=== PATIENT | female | born 1960 | race African-American/Black ===

== ENCOUNTER → 2017-02-07 | Day surgery (SDC) | payer OTHER, MEDICARE ==
[~2017-02-07] MED LIST: AMBIEN10 MG PO; ASPIRIN81 MG PO; BENTYL10 MG PO; CLONAZEPAM0.5 M1 PO; FENTANYL CITRATE/PF 100MCG/2 ML INJ ONE; GABAPENTIN400 MG PO; HYDROCHLOROTHIA25 MG PO; LANTUS100 UNITS/ INJ; LEXAPRO10 MG PO; LIDOCAINE HCL 2% LOCAL INJ 5 ML SDV VIAL INJ ONE; LISINOPRIL10 MG PO; LOSARTAN POTASS25 MG PO; LYRICA25 MG PO; METFORMIN HCL1000 M1 PO; METOCLOPRAMIDE HCL 10 MG/2ML VIAL ONE; METOPROLOL SUCC25 MG PO; MIDAZOLAM HCL 2 MG/2 ML VIAL ONE; NORCO 10-325 T1 EACH PO; NORCO 7.5-3251 EACH PO; NORVASC10 MG PO; PANTOPRAZOLE 40 MG 10ML VIAL ONE; PANTOPRAZOLE SO40 MG PO; POTASSIUM CHLO20 ME1 PO; PROPOFOL IV EMULSION 10 MG/ML 50 ML VIAL ONE; SIMVASTATIN10 MG PO; TRESIBA SC; ZOFRAN ODT4 MG PO; [UNRECOGNIZED DRUG - OTHER] PO
--- NOTE | 2017-02-07 19:33 | Operative Report ---
DATE OF PROCEDURE: February 07, 2017 REFERRING PHYSICIAN: Dr. William Isidro. PROCEDURE PERFORMED: Esophagogastroduodenoscopy with esophageal dilatation and biopsies. INDICATIONS FOR ESOPHAGOGASTRODUODENOSCOPY: Hematemesis, dysphagia to solids. MEDICATION: Patient was done under MAC. Please see anesthesiologist's note. PROCEDURE: With patient in the left lateral decubitus position, flexible fiberoptic Olympus gastroscope was introduced into the esophagus under direct visualization without any difficulty. There was some patchy erythema noted in distal esophagus. A mild stricture was noted at the GE junction that was dilated to size 52-Turkmen Welsh. The scope was then advanced with ease into the stomach. Mucosa overlying the antrum revealed some patchy intense erythema and moderate edema and biopsies were obtained and sent to stain for H. pylori. The previously described gastric ulcer appeared to be almost healed at the distal body posterior wall. There was a peripyloric nodule that was biopsied. The pylorus was then intubated with ease and the scope was advanced all the way to the 2nd portion of the duodenum. The scope was then withdrawn slowly and mucosa overlying the proximal 2nd portion grossly appeared to be within normal limits. Biopsies were obtained and sent to rule out sprue. The mucosa overlying the duodenal bulb appeared to be within normal limits. The scope was then withdrawn back into the stomach and retroflexed, and the mucosa overlying the fundus and cardia appeared to be within normal limits. The scope was then straightened out. The stomach was decompressed. Scope was subsequently withdrawn. Patient tolerated the procedure well. IMPRESSION: 1. Distal esophagitis. 2. Mild stricture at gastroesophageal junction dilated to a size 52-Turkmen Welsh. 3. Gastritis biopsied. Biopsy sent to stain for H. pylori. 4. Peripyloric nodule, biopsied. 5. Previously described gastric ulcer distal body posterior wall appears to be almost healed. 6. Rule out sprue. PLAN: Follow up histology. Increase Protonix to 40 mg 1 p.o. a.c. b.i.d. Job#: [id number] cc:WILLIAM ISIDRO MD
== END | disposition home or self-care (01) ==
LOC: OR 11:12
PROVIDERS: ATTEND Internal Medicine Gastroenterology
DX: K92.0 Hematemesis (principal); K29.70 Gastritis, unspecified, without bleeding; K22.2 Esophageal obstruction; K20.9 Esophagitis, unspecified; K31.89 Other diseases of stomach and duodenum; K21.9 Gastro-esophageal reflux disease without esophagitis; K58.9 Irritable bowel syndrome, unspecified; G62.9 Polyneuropathy, unspecified; G47.33 Obstructive sleep apnea (adult) (pediatric); E11.9 Type 2 diabetes mellitus without complications; I10 Essential (primary) hypertension; M79.7 Fibromyalgia; Z68.35 Body mass index [BMI] 35.0-35.9, adult
CPT/HCPCS: 36415; 43239; 43450; 82948; J2001; J2250; J2765

== ENCOUNTER 2017-08-26 20:35 | Emergency (ER) | payer OTHER ==
[~2017-08-26] VITALS: Ht 162.6 cm; Wt 97.5 kg
[~2017-08-26 20:35] MED LIST changes: -FENTANYL CITRATE/PF 100MCG/2 ML INJ ONE; -LIDOCAINE HCL 2% LOCAL INJ 5 ML SDV VIAL INJ ONE; -METOCLOPRAMIDE HCL 10 MG/2ML VIAL ONE; -MIDAZOLAM HCL 2 MG/2 ML VIAL ONE; -PANTOPRAZOLE 40 MG 10ML VIAL ONE; -PROPOFOL IV EMULSION 10 MG/ML 50 ML VIAL ONE
[2017-08-26 21:35] LABS: BASOPHILS # (AUTO) 0.1 (0.0-0.1); BASOPHILS % 0.9 % (0.0-1.0); EOSINOPHILS # (AUTO) 0.3 (0.0-0.4); EOSINOPHILS % 2.4 % (0.0-6.0); HEMATOCRIT 39.2 % (34.2-44.1); HEMOGLOBIN 13.3 g/dL (12.0-16.0); LYMPHOCYTES # (AUTO) 3.3 (1.0-3.2); LYMPHOCYTES % 27.3 % (18.0-39.1); MEAN CORPUSCULAR HGB CONC 33.9 g/dL (31-35); MEAN CORPUSCULAR VOLUME 88.5 fL (81-99); MONOCYTES # (AUTO) 0.7 (0.2-0.8); MONOCYTES % 6.1 % (4.4-11.3); NEUTROPHILS # (AUTO) 7.6 (2.1-6.9); PLATELET COUNT 344 x10e3/uL (140-360); RED BLOOD COUNT 4.43 x10e6/uL (3.6-5.1); RED CELL DISTRIBUTION WIDTH 13.2 % (11.7-14.4)
[2017-08-26 21:41] LABS: BILIRUBIN,URINE NEGATIVE (NEGATIVE); CLARITY,URINE CLEAR (CLEAR); COLOR,URINE YELLOW (YELLOW); KETONES,URINE NEGATIVE (NEGATIVE); LEUKOCYTE ESTERASE ,URINE NEGATIVE (NEGATIVE); NITRITE,URINE POSITIVE (NEGATIVE); PROTEIN,URINE DIPSTICK NEGATIVE (NEGATIVE); URINE UROBILINOGEN 0.2 mg/dL (0.2 - 1)
[2017-08-26 21:52] LABS: BACTERIA,URINE MANY /HPF; EPITHELIAL CELLS,URINE FEW /LPF; MUCUS,URINE FEW (RARE)
[2017-08-26] MEDS ORDERED: ONDANSETRON HCL INJ 2 MG/ML VIAL IV STA (21:52)
[2017-08-26] MEDS ORDERED: MORPHINE SULFATE 2 MG/ML SYR IV STA (21:52)
[2017-08-26 21:53] LABS: ALANINE AMINOTRANSFERASE 24 IU/L (0-55); ALBUMIN 3.7 g/dL (3.5-5.0); ALKALINE PHOSPHATASE 87 IU/L (40-150); AMYLASE 93 U/L (25-125); ANION GAP 13.7 mmol/L (8-16); BLOOD UREA NITROGEN 14 mg/dL (7-26); BUN/CREATININE RATIO 16 (6-25); CALCIUM 9.6 mg/dL (8.4-10.2); CARBON DIOXIDE 26 mmol/L (22-29); CHLORIDE 105 mmol/L (98-107); CREATININE, SERUM 0.85 mg/dL (0.57-1.11); EST GLOMERULAR FILTRATION RATE > 60 ML/MIN (60-); GLUCOSE 176 mg/dL (74-118); LIPASE 165 U/L (8-78); POTASSIUM 3.7 mmol/L (3.5-5.1); SODIUM 141 mmol/L (136-145)
--- NOTE | 2017-08-26 23:46 | Diagnostic Imaging Report ---
EXAM: CT Abdomen and Pelvis WITHOUT contrast INDICATION: Renal stone. COMPARISON: None. TECHNIQUE: Abdomen and pelvis were scanned utilizing a multidetector helical scanner from the lung base to the pubic symphysis without administration of IV contrast. Absence of intravenous contrast decreases sensitivity for detection of focal lesions and vascular pathology. Coronal and sagittal reformations were obtained. Stone protocol is performed. IV CONTRAST: None. ORAL CONTRAST: Water RADIATION DOSE: Total DLP: 761.28 mGy*cm Estimated effective dose: (DLP x 0.015 x size factor) mSv COMPLICATIONS: None FINDINGS: LINES and TUBES: None. LOWER THORAX: Unremarkable HEPATOBILIARY: No focal hepatic lesions. No biliary ductal dilation. GALLBLADDER: There are cholecystectomy clips. SPLEEN: No splenomegaly. PANCREAS: No focal masses or ductal dilatation. ADRENALS: No adrenal nodules KIDNEYS/URETERS: No hydronephrosis. No cystic or solid mass lesions. No stones. GI TRACT: No abnormal distention, wall thickening, or evidence of bowel obstruction. Appendix is normal. PELVIC ORGANS/BLADDER: There are postop changes of hysterectomy and bilateral oophorectomies. LYMPH NODES: No lymphadenopathy. VESSELS: There is mild atherosclerotic disease in the aorta and major arterial branches. PERITONEUM / RETROPERITONEUM: No free air or fluid. BONES: Degenerative changes of the left SI joint. SOFT TISSUES: Calcified injection granuloma in the right superior outer buttock. IMPRESSION: 1. No evidence of nephrolithiasis or hydronephrosis. Signed by: Dr. Jose Carlos Carbajal M.D. on 08/26/2017 11:42 PM
== END 2017-08-27 00:22 | disposition home or self-care (01) ==
LOC: ER 20:35
DX: R10.9 Unspecified abdominal pain (principal); R11.0 Nausea; N30.91 Cystitis, unspecified with hematuria; I10 Essential (primary) hypertension; E11.9 Type 2 diabetes mellitus without complications; N18.9 Chronic kidney disease, unspecified; M79.7 Fibromyalgia
CPT/HCPCS: 36415; 74176; 80053; 81001; 82150; 83690; 85025; 93005; 99284; J2270; J2405

== ENCOUNTER → 2017-09-22 | Outpatient (CLI) | payer OTHER ==
--- NOTE | 2017-09-22 18:48 | Diagnostic Imaging Report ---
EXAM: CT Abdomen and Pelvis WITHOUT contrast INDICATION: Hematuria COMPARISON: 08/26/2017 CT TECHNIQUE: Abdomen and Pelvis was scanned utilizing a multidetector helical scanner without the use of IV contrast. Coronal and sagittal reformations were obtained. IV CONTRAST: None COMPLICATIONS: None RADIATION DOSE: Total DLP: 729 mGy*cm Estimated effective dose: (DLP x 0.015 x size factor) mSv CTDIvol has been reviewed. It is below the limits set by the Radiation Protocol Committee (RPC). FINDINGS: Abdomen: Lung Bases: No acute findings. Solid Organs: Cholecystectomy clips. No hydronephrosis, renal, or ureteral calculi. Vascular calcification adjacent to ureter stable. Otherwise, solid organs unremarkable. Upper GI Tract: No small bowel obstructive changes. Vascularity: Mild aortic vascular calcifications. No aneurysm. Lymph Nodes: No suspicious adenopathy. Other: No free fluid or free air. Tiny fat-containing umbilical hernia. Pelvis: Bladder: Unremarkable. Numerous pelvic phleboliths posterior to urinary bladder stable. Other: Uterus surgically absent. Colon: No acute colonic findings. Bones: No acute findings. IMPRESSION: 1. No acute findings. Signed by: Dr. Charan Eisenberg MD on 09/22/2017 6:45 PM
== END ==
LOC: CT 17:57
PROVIDERS: ATTEND Internal Medicine
DX: R31.9 Hematuria, unspecified (principal); K42.9 Umbilical hernia without obstruction or gangrene; Z87.442 Personal history of urinary calculi
CPT/HCPCS: 74176

== ENCOUNTER 2018-03-30 16:06 | Emergency (ER) | payer OTHER ==
[~2018-03-30] VITALS: Ht 162.6 cm; Wt 97.5 kg
--- OUTSIDE RECORDS SUMMARY | 2018-03-30 16:11 | XMS REPORT ---
Author Author [facility] Address Unknown Phone Unavailable Care Team Providers Care Cook Helper Dessert Name Role Phone LESLIE ISIDRO Unavailable Unavailable Juany ROUSE Unavailable Unavailable Payers Payer Name Policy Type Policy Number Effective Date Expiration Date Problems This patient has no known problems. Allergies, Adverse Reactions, Alerts Allergy Name Allergy Type Status Severity Reaction(s) Onset Date Inactive Date Treating Clinician Comments Shellfish DA Active SV 2014-10-17 00:00:00 iodine DA Active SV 2014-10-17 00:00:00 Medications This patient has no known medications. Results Test Description Test Time Test Comments Text Results Atomic Results Result Comments MRI SPINE LUMBAR WO 2017-10-21 08:20:00 [place] [address] Patient Name: STEPHEN MUKHERJEE MR #: [id number] : 1960 Age/Sex: 57/F Req #: [id number] Adm Physician: Ordered by: LESLIE ISIDRO MD Report #: [id number] Location: MRI Room/Bed: Procedure: [id number] MRI/MRI SPINE LUMBAR WO Exam Date: Exam Time: REPORT STATUS: Signed Exams: Thoracic and lumbar spine MRIs without IV contrast History: Back pain, radiculopathy symptoms Comparison studies: None Technique: Thoracic spine: Sagittal T1, T2, STIR, axial T1 and T2, coronal T2. Lumbar spine: Sagittal T1, T2, STIR, axial T2 and spin density oblique, coronal T2. IV contrast: None. Findings: Number of lumbar vertebral bodies:5. Alignment: Normal thoracic kyphosis. Straight lumbar curvature. No significant scoliosis. Minimal thoracolumbar curvature convex to the left. Lower thoracic cord: Normal in signal and morphology. The tip of the conus is at L1. Soft tissues: No T2 hyperintense inflammatory changes. Paraspinal muscles: Well preserved. Vertebrae: Normal in height and signal intensity. No compression fractures or infection. Small T1 hyperintense L3 and L4 vertebral body hemangiomas. Degenerative changes: Incompletely imaged cervical spine: Moderately degenerated C5-C6 disc at least mild canal stenosis due to a disc osteophyte complex. Thoracic spine: Mild multilevel disc degeneration, greatest from T2 to T7 with loss of T2/STIR disc signal. Small left central disc protrusions at T5-T6 and at T6-T7. Patent canal and foramina . Lumbar spine: L1-L2: No abnormalities. L2-L3: Mildly degenerated disc. Asymmetric left disc bulge with mild left foraminal stenosis. Patent canal and right foramen. L3-L4: Asymmetric left disc bulge with left foraminal annular fissure and mild facet arthrosis with mild left foraminal stenosis. No significant canal or right foraminal stenosis. L4-L5: Mildly degenerated disc. Symmetric disc bulge with mild bilateral foraminal stenosis. No significant canal stenosis. 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 There may be mild mass effect on the left S1 nerve root at the left subarticular zone at the disc level (series 13, image 36 and series 15, image 23). Patent canal and foramina. IMPRESSION: Thoracic spine: 1. Mild multilevel disc degeneration. 2. Patent thoracic canal and foramina. Lumbar spine: 1. Mild multilevel lumbar disc degeneration with annular fissure at L3-L4. 2. Mild multilevel degenerative foraminal stenosis from L2 to L5. 3. Incidental conjoined left L5-S1 nerve root with potential mass effect on the left subarticular S1 nerve root, significance of which could be correlated for left S1 radiculopathy symptoms. Signed by: Dr. Rancho Mayberry M.D. on 10/21/2017 8:53 AM Dictated By: RANCHO MAYBERRY MD 2 Transcribed By: SAEID on 10/21/17852 COPY TO: LESLIE ISIDRO MD MRI SPINE THORACIC WO 2017-10-21 08:20:00 [place] [address] Patient Name: STEPHEN MUKHERJEE MR #: [id number] : 1960 Age/Sex: 57/F Req #: [id number] Adm Physician: Ordered by: LESLIE ISIDRO MD Report #: [id number] Location: MRI Room/Bed: Procedure: [id number] MRI/MRI SPINE THORACIC WO Exam Date: Exam Time: REPORT STATUS: Signed Exams: Thoracic and lumbar spine MRIs without IV contrast History: Back pain, radiculopathy symptoms Comparison studies: None Technique: Thoracic spine: Sagittal T1, T2, STIR, axial T1 and T2, coronal T2. Lumbar spine: Sagittal T1, T2, STIR, axial T2 and spin density oblique, coronal T2. IV contrast: None. Findings: Number of lumbar vertebral bodies:5. Alignment: Normal thoracic kyphosis. Straight lumbar curvature. No significant scoliosis. Minimal thoracolumbar curvature convex to the left. Lower thoracic cord: Normal in signal and morphology. The tip of the conus is at L1. Soft tissues: No T2 hyperintense inflammatory changes. Paraspinal muscles: Well preserved. Vertebrae: Normal in height and signal intensity. No compression fractures or infection. Small T1 hyperintense L3 and L4 vertebral body hemangiomas. Degenerative changes: Incompletely imaged cervical spine: Moderately degenerated C5-C6 disc at least mild canal stenosis due to a disc osteophyte complex. Thoracic spine: Mild multilevel disc degeneration, greatest from T2 to T7 with loss of T2/STIR disc signal. Small left central disc protrusions at T5-T6 and at T6-T7. Patent canal and foramina . Lumbar spine: L1-L2: No abnormalities. L2-L3: Mildly degenerated disc. Asymmetric left disc bulge with mild left foraminal stenosis. Patent canal and right foramen. L3-L4: Asymmetric left disc bulge with left foraminal annular fissure and mild facet arthrosis with mild left foraminal stenosis. No significant canal or right foraminal stenosis. L4-L5: Mildly degenerated disc. Symmetric disc bulge with mild bilateral foraminal stenosis. No significant canal stenosis. 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 There may be mild mass effect on the left S1 nerve root at the left subarticular zone at the disc level (series 13, image 36 and series 15, image 23). Patent canal and foramina. IMPRESSION: Thoracic spine: 1. Mild multilevel disc degeneration. 2. Patent thoracic canal and foramina. Lumbar spine: 1. Mild multilevel lumbar disc degeneration with annular fissure at L3-L4. 2. Mild multilevel degenerative foraminal stenosis from L2 to L5. 3. Incidental conjoined left L5-S1 nerve root with potential mass effect on the left subarticular S1 nerve root, significance of which could be correlated for left S1 radiculopathy symptoms. Signed by: Dr. Rancho Mayberry M.D. on 10/21/2017 8:53 AM Dictated By: RANCHO MAYBERRY MD 2 Transcribed By: SAEID on 10/21/17852 COPY TO: LESLIE ISIDRO MD CT ABDOMEN/PELVIS WO 2017-09-22 18:42:00 [place] [address] Patient Name: STEPHEN MUKHERJEE MR #: [id number] : 1960 Age/Sex: 57/F Req #: [id number] Adm Physician: Ordered by: LESLIE ISIDRO MD Report #: [id number] Location: CT Room/Bed: Procedure: CT/CT ABDOMEN/PELVIS WO Exam Date: 09/22/17 Exam Time: 1814 REPORT STATUS: Signed EXAM: CT Abdomen and Pelvis WITHOUT contrast INDICATION: Hematuria COMPARISON: 08/26/2017 CT TECHNIQUE: Abdomen and Pelvis was scanned utilizing a multidetector helical scanner without the use of IV contrast. Coronal and sagittal reformations were obtained. IV CONTRAST: None COMPLICATIONS: None RADIATION DOSE: Total DLP: 729 mGy*cm Estimated effective dose: (DLP x 0.015 x size factor) mSv CTDIvol has been reviewed. It is below the limits set by the Radiation Protocol Committee (RPC). FINDINGS: Abdomen: Lung Bases: No acute findings. Solid Organs: Cholecystectomy clips. No hydronephrosis, renal, or ureteral calculi. Vascular calcification adjacent to ureter stable. Otherwise, solid organs unremarkable. Upper GI Tract: No small bowel obstructive changes. Vascularity: Mild aortic vascular calcifications. No aneurysm. Lymph Nodes: No suspicious adenopathy. Other: No free fluid or free air. Tiny fat-containing umbilical hernia. Pelvis: Bladder: Unremarkable. Numerous pelvic phleboliths posterior to urinary bladder stable. Other: Uterus surgically absent. Colon: No acute colonic findings. Bones: No acute findings. IMPRESSION: 1. No acute findings. Signed by: Dr. Gonzalez Eisenberg MD on 09/22/2017 6:45 PM Dictated By: GONZALEZ EISENBERG MD 44 Transcribed By: SAEID on 09/22/171844 COPY TO: LESLIE ISIDRO MD CT ABDOMEN/PELVIS WO 2017-08-26 23:40:00 [place] [id number] [place] [address] Patient Name: STEPHEN MUKHERJEE MR #: [id number] : 1960 Age/Sex: 57/F Req #: [id number] Adm Physician: Ordered by: JONES ROUSE MD Report #: [id number] Location: ER Room/Bed: Procedure: [id number] CT/CT ABDOMEN/PELVIS WO Exam Date: 08/26/17 Exam Time: 2109 REPORT STATUS: Signed EXAM: CT Abdomen and Pelvis WITHOUT contrast INDICATION: Renal stone. COMPARISON: None. TECHNIQUE: Abdomen and pelvis were scanned utilizing a multidetector helical scanner from the lung base to the pubic symphysis without administration of IV contrast. Absence of intravenous contrast decreases sensitivity for detection of focal lesions and vascular pathology. Coronal and sagittal reformations were obtained. Stone protocol is performed. IV CONTRAST: None. ORAL CONTRAST: Water RADIATION DOSE: Total DLP: 761.28 mGy*cm Estimated effective dose: (DLP x 0.015 x size factor) mSv COMPLICATIONS: None FINDINGS: LINES and TUBES: None. LOWER THORAX: Unremarkable HEPATOBILIARY: No focal hepatic lesions. No biliary ductal dilation. GALLBLADDER: There are cholecystectomy clips. SPLEEN: No splenomegaly. PANCREAS: No focal masses or ductal dilatation. ADRENALS: No adrenal nodules KIDNEYS/URETERS: No hydronephrosis. No cystic or solid mass lesions. No stones. GI TRACT: No abnormal distention, wall thickening, or evidence of bowel obstruction. Appendix is normal. PELVIC ORGANS/BLADDER: There are postop changes of hysterectomy and bilateral oophorectomies. LYMPH NODES: No lymphadenopathy. VESSELS: There is mild atherosclerotic disease in the aorta and major arterial branches. PERITONEUM / RETROPERITONEUM: No free air or fluid. BONES: Degenerative changes of the left SI joint. SOFT TISSUES: Calcified injection granuloma in the right superior outer buttock. IMPRESSION: 1. No evidence of nephrolithiasis or hydronephrosis. Signed by: Dr. Jose Carlos Carbajal M.D. on 08/26/2017 11:42 PM Dictated By: JOSE CARLOS NOVOA MD 41 Transcribed By: SAEID on 08/26/172341 COPY TO: JONES ROUSE MD CHEST 2 VIEWS [place] [address] Patient Name: STEPHEN MUKHERJEE MR #: [id number] : 1960 Age/Sex: 56/F Req #: [id number] Adm Physician: Ordered by: LESLIE ISIDRO MD Report #: [id number] Location: [facility] Room/Bed: Procedure: [id number] DX/CHEST 2 VIEWS Exam Date: 11/07/16 Exam Time: 1215 REPORT STATUS: Signed PROCEDURE: CHEST 2 VIEWS TECHNIQUE: PA and lateral chest INDICATION: Preoperative evaluation for left knee surgery COMPARISON: [facility], [place], CHEST 2 VIEWS - [place], 05/09/2016, 13:09. FINDINGS: The lungs are clear and symmetrically inflated. No pleural effusions. Normal heart size, mediastinal contour and central vasculature. Intact skeleton. Cholecystectomy clips. CONCLUSION: Normal chest. Dictated by: Andrew Reynolds M.D. on 11/07/2016 at 14:18 Electronically approved by: Andrew Reynolds M.D. on 11/07/2016 at 14:18 Dictated By: ANDREW REYNOLDS MD 1418 Transcribed By: CORTNEY on 11/07/16 1418 COPY TO: LESLIE ISIDRO MD
--- OUTSIDE RECORDS SUMMARY | 2018-03-30 16:11 | XMS REPORT | Continuity of Care Document ---
Author Author [facility] Interface Address Unknown Phone Unavailable Problems Problem Status Onset Date Classification Date Reported Comments Source Pain in left knee 03/25/2017 06/25/2017 [facility] [place] REPLACEMENT OF TOTAL KNEE JOINT Active 11/26/2016 [facility] [place] TKA Active 11/26/2016 [facility] ACS Active 05/12/2016 [facility] CHEST PAIN Active 05/12/2016 [facility] PAIN - CRONIC Active 07/10/2015 [facility] 789.07 Active 06/02/2014 [facility] Obesity Active Problem 08/10/2016 Sebas Martinez Exertional dyspnea Active Problem 08/10/2016 Sebas Martinez Former smoker Active Problem 08/10/2016 Sebas Martinez Palpitations Active Diagnosis 08/10/2016 Sebas Martinez Type 2 diabetes mellitus with complication Active Problem 08/10/2016 Sebas Martinez Diverticulitis Active Problem 08/10/2016 Sebas Martinez Encounter for pre-operative cardiovascular clearance Active Problem 08/10/2016 Sebas Martinez Coronary atherosclerosis of [place] coronary artery Active Problem 08/10/2016 Sebas Martinez Hypertension Active Problem 08/10/2016 Sebas Martinez Dizziness Active Problem 08/10/2016 Sebas Martinez Irritable bowel disease [facility] (<span ID="[id number]">Confirmed</span>) Active Problem 06/25/2017 [facility] Fibromyalgia Active Problem 06/25/2017 [facility] HTN (<span ID="[id number]">Confirmed</span>) Active Problem 06/25/2017 [facility] Mitral valve prolapse Resolved Problem 06/25/2017 [facility] Stiffness of left knee, not elsewhere classified 06/25/2017 [facility] Muscle weakness 06/25/2017 [facility] Presence of left artificial knee joint 06/25/2017 [facility] ACUTE ISCHEMIC HEART DISEASE, UNSPECIFIE Active [facility] Medications Medication Details Route Status Patient Instructions Ordering Provider Order Date Source zolpidem 5 mg, 1 tab, Route: PO, Drug form: TAB, Bedtime, Start date: 05/13/16 21:00:00 CDT, Duration: 30 day, Stop date: 06/11/16 21:00:00 CDTNotes: (Same As: Ambien) Inactive 05/14/[address] [facility] Levemir FlexPen 40 unit, 0.4 mL, Route: SUB-Q, Drug form: INJ, Bedtime, Start date: 05/13/16 21:00:00 CDT, Duration: 30 day, Stop date: 06/11/16 21:00:00 CDTNotes: Same as Levemir Do not hold insulin without contact ing prescriber WASTE: F/P - Black; E - Municipal Trash Bin "single patient use only" Inactive 05/14/[address] [facility] Simvastatin 10 mg, 1 tab, Route: PO, Drug form: TAB, Bedtime, Dosing Weight 99.091, kg, Start date: 05/13/16 21:00:00 CDT, Duration: 30 day, Stop date: 06/11/16 21:00:00 CDTNotes: (Same as: Zocor) Inactive 05/14/[address] [facility] Insulin Glargine 100 UNT/ML Injectable Solution [Lantus] 40 unit, Route: SUB-Q, Drug form: SOLN, Bedtime, Dosing Weight 99.091, kg, Start date: 05/13/16 21:00:00 CDT, Duration: 30 day, Stop date: 06/11/16 21:00:00 CDT No Longer Active 05/14/[address] [facility] gabapentin 600 MG Oral Tablet 600 mg, 2 cap, Route: PO, Drug form: CAP, BID, Dosing Weight 99.091, kg, Start date: 05/13/16 9:00:00 CDT, Duration: 30 day, Stop date: 06/11/16 17:00:00 CDTNotes: (Same as: Neurontin) Inactive 05/13/[address] [facility] Escitalopram 10 mg, 1 tab, Route: PO, Drug form: TAB, Q12H, Dosing Weight 99.091, kg, Start date: 05/13/16 9:00:00 CDT, Duration: 30 day, Stop date: 06/11/16 21:00:00 CDTNotes: (Same as: Lexapro) Inactive 05/13/[address] [facility] Dicyclomine 20 mg, 1 tab, Route: PO, Drug form: TAB, BID, Dosing Weight 99.091, kg, Start date: 05/13/16 9:00:00 CDT, Duration: 30 day, Stop date: 06/11/16 17:00:00 CDTNotes: (Same as: Bentyl) Inactive 05/13/[address] [facility] cyclobenzaprine 10 mg, 1 tab, Route: PO, Drug form: TAB, BID, Dosing Weight 99.091, kg, Start date: 05/13/16 9:00:00 CDT, Duration: 30 day, Stop date: 06/11/16 17:00:00 CDTNotes: (Same As: Flexeril) Inactive 05/13/[address] [facility] Clonazepam 0.5 mg, 1 tab, Route: PO, Drug form: TAB, BID, Dosing Weight 99.091, kg, Start date: 05/13/16 9:00:00 CDT, Duration: 30 day, Stop date: 06/11/16 17:00:00 CDTNotes: (Same As: KlonoPIN) Inactive 05/13/[address] [facility] Caltrate 600+D Soft Chews 1 tab, Route: PO, Drug Form: TAB, Dosing Weight 99.091, kg, BID, Start date: 05/13/16 9:00:00 CDT, Duration: 30 day, Stop date: 06/11/16 17:00:00 CDT No Longer Active 05/13/[address] [facility] Acetaminophen 325 MG / Hydrocodone Bitartrate 10 MG Oral Tablet [Arden 10/325] 1 tab, Route: PO, Drug Form: TAB, Dosing Weight 99.091, kg, BID, Start date: 05/13/16 9:00:00 CDT, Duration: 30 day, Stop date: 06/11/16 17:00:00 CDTNotes: Do not exceed 4gm/day of acetaminophen. (Same as: Arden 325/10) Inactive 05/13/[address] [facility] aspirin 81 mg tablet, enteric coated 81 mg, 1 tab, Route: PO, Drug form: ECTAB, Daily, Dosing Weight 96.818, kg, Start date: 05/13/16 9:00:00 CDT, Duration: 30 day, Stop date: 06/11/16 9:00:00 CDTNotes: Do not crush or chew. (Same As: Ecotrin) Inactive 05/13/[address] [facility] calcium-vitamin D 500 mg-200 intl units oral tablet 1 tab, Route: PO, Drug Form: TAB, BID, Start date: 05/13/16 9:00:00 CDT, Duration: 30 day, Stop date: 06/11/16 17:00:00 CDTNotes: (Same As: Kirk-D, OsCal-D, Oyster Calcium) Inactive 05/13/[address] [facility] pantoprazole 40 mg, 1 tab, Route: PO, Drug form: ECTAB, BID, Dosing Weight 99.091, kg, Start date: 05/13/16 9:00:00 CDT, Duration: 30 day, Stop date: 06/11/16 17:00:00 CDTNotes: Tablet should not be chewed or cru shed. (Same as: Protonix) Inactive 05/13/[address] [facility] metoprolol tartrate 25 mg, 1 tab, Route: PO, Drug form: TAB, BID, Dosing Weight 99.091, kg, Start date: 05/13/16 9:00:00 CDT, Duration: 30 day, Stop date: 06/11/16 17:00:00 CDTNotes: (Same as: Lopressor) Inactive 05/13/[address] [facility] Nitroglycerin 0.4 MG Sublingual Tablet 0.4 mg=1 tab, SL, Q5Min, PRN Chest Pain, not to exceed 3 doses/15 min--if pain persists, seek medical attention, # 100 tab, 0 Refill(s) Active 05/13/[address] [facility] Ondansetron 4 mg, 1 tab, Route: PO, Drug form: TAB, Q6H, Dosing Weight 99.091, kg, PRN Narcotic Reversal, Start date: 05/12/16 23:09:00 CDT, Duration: 30 day, Stop date: 06/11/16 23:08:00 CDTNotes: (Same as: Sierra) No Longer Active 05/13/[address] [facility] metoprolol tartrate 25 mg, PO, BID, 0 Refill(s) Active 05/13/[address] [facility] Calcium 600 +D oral tablet 1 tab, PO, BID, 0 Refill(s) Active 05/13/[address] [facility] cyclobenzaprine 10 mg oral tablet 10 mg=1 tab, PO, BID, 0 Refill(s) Active 05/13/[address] [facility] ondansetron 4 mg oral tablet 4 mg=1 tab, PO, Q6H, PRN Narcotic Reversal, 0 Refill(s) No Longer Active 05/13/[address] [facility] dicyclomine 20 mg oral tablet 20 mg=1 tab, PO, BID, 0 Refill(s) Active 05/13/[address] [facility] Simvastatin 10 mg, PO, Bedtime, 0 Refill(s) Active 05/13/[address] [facility] escitalopram 10 mg oral tablet 10 mg=1 tab, PO, BID, 09:00 and 21:00, 0 Refill(s) Active 05/13/[address] [facility] pantoprazole 40 mg, PO, BID, # 30 tab, 0 Refill(s) Active 05/13/[address] [facility] Acetaminophen 325 MG / Hydrocodone Bitartrate 10 MG Oral Tablet [Arden 10/325] 1 tab, PO, BID, 0 Refill(s) Active 05/13/[address] [facility] zolpidem 10 mg oral tablet 10 mg=1 tab, PO, Bedtime, 0 Refill(s) Active 05/13/[address] [facility] Insulin Glargine 100 UNT/ML Injectable Solution [Lantus] 40 unit, SUB-Q, Bedtime, # 10 mL, 3 Refill(s) Active 05/13/[address] [facility] gabapentin 600 MG Oral Tablet 600 mg=1 tab, PO, BID, 0 Refill(s) Active 05/13/[address] [facility] clonazePAM 0.5 mg oral tablet 0.5 mg=1 tab, PO, BID, 0 Refill(s) Active 05/13/[address] [facility] Insulin, Aspart, Human 10 unit, 0.1 mL, Route: SUB-Q, Drug form: SOLN, TID-Before Meals, Dosing Weight 96.818, kg, PRN Blood Glucose Results, Start date: 05/12/16 22:17:00 CDT, Duration: 30 day, Stop date: 06/11/16 22:16:00 CDTNotes: Roll in palms of hands gently; Do not shake vigorously. (Same as: NovoLOG) "single patient use only" WASTE: F/P - Black; E - Municipal Trash Bin Stable for 28 days at room temperature. Expires in days from Date No Longer Active 05/13/[address] [facility] Dextrose 50% Syringe 12.5 gm, 25 mL, Route: IVP, Drug Form: INJ, Dosing Weight 96.818, kg, PRN, PRN Blood Glucose Results, Start date: 05/12/16 22:17:00 CDT, Duration: 30 day, Stop date: 06/11/16 22:16:00 CDT No Longer Active 05/13/[address] [facility] Glucagon 1 mg, Route: IM, Drug form: PDR/INJ, PRN, Dosing Weight 96.818, kg, PRN Blood Glucose Results, Start date: 05/12/16 22:17:00 CDT, Duration: 30 day, Stop date: 06/11/16 22:16:00 CDT No Longer Active 05/13/[address] [facility] Acetaminophen 650 mg, 2 tab, Route: PO, Drug form: TAB, Q4H, Dosing Weight 96.818, kg, PRN Pain 1-3/Temp > 100.4 F, Priority: STAT, Start date: 05/12/16 22:04:00 CDT, Duration: 30 day, Stop date: 06/11/16 22 :03:00 CDTNotes: Do not exceed 4 gm/day. (Same as: Tylenol) No Longer Active 05/13/[address] [facility] Nitroglycerin 0.4 mg, 1 tab, Route: SL, Drug form: TAB, Q5Min, Dosing Weight 96.818, kg, PRN Chest Pain, Start date: 05/12/16 22:04:00 CDT, Duration: 30 day, Stop date: 06/11/16 22:03:00 CDTNotes: (Same as:Nitroqu ick, Nitrostat) "Do Not Crush" Sublingual tablet No Longer Active 05/13/[address] [facility] potassium chloride 40 mEq, 2 tab, Route: PO, Drug form: ERTAB, ONCE, Dosing Weight 96.818, kg, Priority: STAT, Start date: 05/12/16 21:52:00 CDT, Stop date: 05/12/16 21:52:00 CDTNotes: (Same as: K-Dur 20) "Do Not Crush" With food and full glass of water Inactive 05/13/[address] [facility] Saline Flush 0.9% 10 ml, Route: IVP, Drug Form: INJ, Dosing Weight 96.818, kg, Q12H, Start date: 05/12/16 21:00:00 CDT, Duration: 30 day, Stop date: 06/11/16 9:00:00 CDTNotes: (Same as: BD Posiflush) No Longer Active 05/13/[address] [facility] Aspirin 325 mg, 1 tab, Route: PO, Drug form: TAB, ONCE, Dosing Weight 96.818, kg, Priority: STAT, Start date: 05/12/16 20:33:00 CDT, Stop date: 05/12/16 20:33:00 CDTNotes: Take with food. Inactive 05/13/[address] [facility] Saline Flush 0.9% 10 ml, Route: IVP, Drug Form: INJ, Dosing Weight 96.818, kg, PRN, PRN Line Flush, Start date: 05/12/16 20:31:00 CDT, Duration: 30 day, Stop date: 06/11/16 20:30:00 CDTNotes: (Same as: BD Posiflush) No Longer Active 05/13/[address] [facility] Nitroglycerin 0.4 mg, 1 tab, Route: SL, Drug form: TAB, Q5Min, Dosing Weight 96.818, kg, PRN Chest Pain, Start date: 05/12/16 20:31:00 CDT, Duration: 3 doses or times, Stop date: Limited # of timesNotes: (Same as: Nitroquick, Nitrostat) "Do Not Crush" Sublingual tablet No Longer Active 05/13/[address] [facility] Saline Flush 0.9% 10 mL, Route: IVP, Drug Form: INJ, Dosing Weight 100, kg, PRN, PRN Line Flush, Start date: 05/12/16 18:03:00 CDT, Duration: 30 day, Stop date: 06/11/16 18:02:00 CDTNotes: (Same as: BD Posiflush) Inactive 05/12/[address] [facility] Metoprolol Tartrate 1 tablet Orally Active 25 MG Orally Twice a day Michelle Martinez Allergies, Adverse Reactions, Alerts Substance Category Reaction Severity Reaction type Status Date Reported Comments Source iodine Assertion Drug allergy Active [facility] Immunizations Immunization Date Given Site Status Last Updated Comments Source Results Order Name Results Value Reference Range Date Interpretation Comments Source Brain wo contrast MRI Brain wo contrast MRI Patient Name: STEPHEN MUKHERJEE : 1960; Age: 57 years y/o Female MR: [id number] Study: Brain wo contrast MRI 06/04/2017 11:44 AM CDT Clinical Indication: G43.019 Migraine without aura, intractable, without status migrainosus - G43.019 Migraine without aura, intractable, without status migrainosus; Comparison: None TECHNIQUE: Multiplanar noncontrast MRI of the brain is performed on a 3 Zeinab magnet. Contrast: None. FINDINGS: The brain parenchyma is unremarkable for age. There are a few punctate FLAIR hyperintensities in the frontoparietal subcortical and deep white matter likely representing chronic microangiopathy. There is no evidence of acute intracranial hemorrhage, acute or subacute infarct, mass, focal edema, midline shift or extra-axial fluid collection. The ventricles and basilar cisterns are unremarkable. The craniocervical junction and midline structures are unremarkable. The cerebellar tonsils terminate normally above foramen magnum. The central intracranial flow voids are maintained. The visualized orbits, paranasal sinuses and mastoids are unremarkable. IMPRESSION: No acute intracranial process. 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 06/04/2017 - - Read by: Margo Locke Dictated Date/time: 06/04/17 12:51 Electronically Signed by: Margo Locke 06/04/17 12:53 FINAL REPORT [facility] [place] CARDIAC ENZYMES Total CK 236 unit/L 12 - 191 05/13/[address] [facility] CARDIAC ENZYMES Troponin-I null 0.00 - 0.40 05/13/[address] [facility] CARDIAC ENZYMES CK-MB INDEX 0.9 0.0 - 2.5 05/13/[address] [facility] CARDIAC ENZYMES CK MB 2.2 ng/mL 0.5 - 3.6 05/13/[address] [facility] LIPIDS LDL (Calculated) 65 mg/dL <=99 mg/dL 05/13/[address] [facility] LIPIDS VLDL 24 05/13/[address] [facility] LIPIDS HDL 40 mg/dL >=61 mg/dL 05/13/[address] [facility] LIPIDS Trig 119 mg/dL <=149 mg/dL 05/13/[address] [facility] LIPIDS Chol 129 mg/dL <=199 mg/dL 05/13/[address] [facility] LIPIDS CHD Risk 3.22 3.90 - 5.80 05/13/[address] [facility] SPECIAL CHEMISTRY Hgb A1C 6.9 % <=5.6 % 05/13/[address] [facility] DRUG SCREEN U Cannab Scr Negative *NA* (05/13/16 12:00 AM) Negative 05/13/[address] [facility] DRUG SCREEN U Cocaine Scr Negative *NA* (05/13/16 12:00 AM) Negative 05/13/[address] [facility] DRUG SCREEN U Phencyc Scr Negative *NA* (05/13/16 12:00 AM) Negative 05/13/[address] [facility] DRUG SCREEN U Opiate Scr Positive *ABN* (05/13/16 12:00 AM) Negative 05/13/[address] [facility] DRUG SCREEN U Benzodia Scr Negative *NA* (05/13/16 12:00 AM) Negative 05/13/[address] [facility] DRUG SCREEN U Zonia Scr Negative *NA* (05/13/16 12:00 AM) Negative 05/13/[address] [facility] DRUG SCREEN U Amph Scr Negative *NA* (05/13/16 12:00 AM) Negative 05/13/[address] [facility] DRUG SCREEN UDS Note See Note (05/13/16 12:00 AM) 05/13/2016 [facility] [place] URINE AND STOOL UA Bacteria None Seen (05/13/16 12:00 AM) None Seen 05/13/2016 [place] URINE AND STOOL Micro? Performed (05/13/16 12:00 AM) 05/13/2016 [place] URINE AND STOOL UA WBC 0-2 /HPF None Seen /HPF 05/13/2016 [place] URINE AND STOOL UA Sq Epi Rare /LPF Few /LPF 05/13/2016 [place] URINE AND STOOL UA RBC 0-2 /HPF 0 - 2 05/13/2016 [place] URINE AND STOOL UA Leuk Est Negative (05/13/16 12:00 AM) Negative 05/13/2016 [place] URINE AND STOOL UA Nitrite Negative (05/13/16 12:00 AM) Negative 05/13/2016 [place] URINE AND STOOL UA Urobilinogen 1.0 EU/dL 0.1 - 1.0 05/13/2016 [place] URINE AND STOOL UA Turbidity Clear (05/13/16 12:00 AM) Clear 05/13/2016 [place] URINE AND STOOL UA Color Yellow *NA* (05/13/16 12:00 AM) Yellow 05/13/2016 [place] URINE AND STOOL UA Ketones Negative mg/dL Negative mg/dL 05/13/2016 [place] URINE AND STOOL UA pH 8.0 5.0 - 8.0 05/13/2016 [place] URINE AND STOOL UA Blood Negative (05/13/16 12:00 AM) Negative 05/13/2016 [place] URINE AND STOOL UA Bili Negative *NA* (05/13/16 12:00 AM) Negative 05/13/2016 [place] URINE AND STOOL UA Glucose Negative mg/dL Negative mg/dL 05/13/2016 [place] URINE AND STOOL UA Protein Negative mg/dL Negative mg/dL 05/13/2016 [place] URINE AND STOOL UA Spec Grav 1.010 <=1.030 05/13/[address] [facility] CARDIAC ENZYMES Troponin-I null 0.00 - 0.40 05/13/[address] [facility] CARDIAC ENZYMES Total CK 273 unit/L 12 - 191 05/13/[address] [facility] CARDIAC ENZYMES CK-MB INDEX 1.0 0.0 - 2.5 05/13/[address] [facility] CARDIAC ENZYMES CK MB 2.6 ng/mL 0.5 - 3.6 05/13/[address] [facility] CHEM PANEL Magnesium Lvl 2.1 mg/dL 1.8 - 2.4 05/13/[address] [facility] ELECTROLYTES AGAP 8.3 meq/L 10.0 - 20.0 05/13/[address] [facility] ELECTROLYTES Sodium Lvl 143 meq/L 135 - 145 05/13/[address] [facility] ELECTROLYTES Glucose Lvl 119 mg/dL 70 - 99 05/13/[address] [facility] ELECTROLYTES BUN 18 mg/dL 7 - 22 05/13/[address] [facility] ELECTROLYTES Chloride Lvl 105 meq/L 95 - 109 05/13/[address] [facility] ELECTROLYTES Potassium Lvl 3.3 meq/L 3.5 - 5.1 05/13/[address] [facility] ELECTROLYTES CO2 33 meq/L 24 - 32 05/13/[address] [facility] ELECTROLYTES Calcium Lvl 9.1 mg/dL 8.5 - 10.5 05/13/[address] [facility] ELECTROLYTES eGFR 116 mL/min/1.73m2 05/13/2016 Result Comment: The eGFR is calculated using the CKD-EPI formula. In most young, healthy individuals the eGFR will be >90 mL/min/1.73m2. The eGFR declines with age. An eGFR of 60-89 may be normal in some populations, particularly the elderly, for whom the CKD-EPI formula has not been extensively validated. Use of the eGFR is not recommended in the following populations: Individuals with unstable creatinine concentrations, including patients and those with serious co-morbid conditions. Patients with extremes in muscle mass or diet. The data above are obtained from the National Kidney Disease Education Program (NKDEP) which additionally recommends that when the eGFR is used in patients with extremes of body mass index for purposes of drug dosing, the eGFR should be multiplied by the estimated BMI. [facility] ELECTROLYTES Creatinine Lvl 0.66 mg/dL 0.50 - 1.40 05/13/[address] [facility] HEMATOLOGY D-Dimer 0.70 ug/mL FEU 05/13/[address] [facility] HEMATOLOGY Platelet 271 K/CMM 133 - 450 05/13/[address] [facility] HEMATOLOGY MPV 7.2 fL 7.4 - 10.4 05/13/[address] [facility] HEMATOLOGY MCHC 34.2 g/dL 32.0 - 36.0 05/13/[address] [facility] HEMATOLOGY RDW 13.3 % 11.5 - 14.5 05/13/[address] [facility] HEMATOLOGY WBC X 10x3 10.3 K/CMM 3.7 - 10.4 05/13/[address] [facility] HEMATOLOGY RBC X 10x6 4.19 M/CMM 4.20 - 5.40 05/13/[address] [facility] HEMATOLOGY Hgb 12.9 g/dL 12.0 - 16.0 05/13/2016 [facility] Hct 37.7 % 36.0 - 48.0 05/13/2016 [facility] MCV 90.0 fL 80.0 - 98.0 05/13/2016 [facility] MCH 30.8 pg 27.0 - 31.0 05/13/2016 [facility] Basophils 0.6 % 0.0 - 1.0 05/13/2016 [facility] Lymphocytes # 3.0 K/CMM 1.0 - 5.5 05/13/2016 [facility] Segs-Bands # 6.3 K/CMM 1.5 - 8.1 05/13/2016 [facility] Monocytes # 0.9 K/CMM 0.0 - 0.8 05/13/2016 [facility] Eosinophils # 0.1 K/CMM 0.0 - 0.5 05/13/2016 [facility] Basophils # 0.1 K/CMM 0.0 - 0.2 05/13/2016 [facility] Eosinophils 1.4 % 0.0 - 4.0 05/13/2016 [facility] Segs 60.8 % 45.0 - 75.0 05/13/2016 [facility] Lymphocytes 28.9 % 20.0 - 40.0 05/13/2016 [facility] Monocytes 8.3 % 2.0 - 12.0 05/13/[address] [facility] CARDIAC ENZYMES CK-MB INDEX 1.0 0.0 - 2.5 05/12/[address] [facility] CARDIAC ENZYMES Total CK 299 unit/L 12 - 191 05/12/[address] [facility] CARDIAC ENZYMES Troponin-I null 0.00 - 0.40 05/12/[address] [facility] CARDIAC ENZYMES CK MB 2.9 ng/mL 0.5 - 3.6 05/12/[address] [facility] CHEM PANEL Alk Phos 77 unit/L 39 - 136 05/12/2016 [facility] [place] CHEM PANEL Glucose Lvl 143 mg/dL 70 - 99 05/12/2016 [place] CHEM PANEL BUN 18 mg/dL 7 - 22 05/12/2016 [place] CHEM PANEL Sodium Lvl 143 meq/L 135 - 145 05/12/2016 [place] CHEM PANEL Creatinine Lvl 0.80 mg/dL 0.50 - 1.40 05/12/2016 [place] CHEM PANEL Albumin Lvl 3.8 g/dL 3.5 - 5.0 05/12/2016 [place] CHEM PANEL ALANINE AMINOTRANSFERASE 34 unit/L 0 - 65 05/12/2016 [place] CHEM PANEL eGFR 97 mL/min/1.73m2 05/12/2016 Result Comment: The eGFR is calculated using the CKD-EPI formula. In most young, healthy individuals the eGFR will be >90 mL/min/1.73m2. The eGFR declines with age. An eGFR of 60-89 may be normal in some populations, particularly the elderly, for whom the CKD-EPI formula has not been extensively validated. Use of the eGFR is not recommended in the following populations: Individuals with unstable creatinine concentrations, including patients and those with serious co-morbid conditions. Patients with extremes in muscle mass or diet. The data above are obtained from the National Kidney Disease Education Program (NKDEP) which additionally recommends that when the eGFR is used in patients with extremes of body mass index for purposes of drug dosing, the eGFR should be multiplied by the estimated BMI. [place] CHEM PANEL AGAP 11.3 meq/L 10.0 - 20.0 05/12/2016 [place] CHEM PANEL Globulin 3.9 g/dL 2.7 - 4.2 05/12/2016 [place] CHEM PANEL ASPARTATE TRANSAMINASE 26 unit/L 0 - 37 05/12/2016 [place] CHEM PANEL B/C Ratio 22 6 - 25 05/12/2016 [place] CHEM PANEL A/G Ratio 1.0 0.7 - 1.6 05/12/2016 [place] CHEM PANEL Potassium Lvl 3.3 meq/L 3.5 - 5.1 05/12/2016 [place] CHEM PANEL Chloride Lvl 106 meq/L 95 - 109 05/12/2016 [place] CHEM PANEL CO2 29 meq/L 24 - 32 05/12/2016 [place] CHEM PANEL Bili Total 0.2 mg/dL 0.2 - 1.3 05/12/[address] [facility] CHEM PANEL Total Protein 7.7 g/dL 6.4 - 8.4 05/12/[address] [facility] CHEM PANEL Calcium Lvl 8.9 mg/dL 8.5 - 10.5 05/12/2016 [facility] Lymphocytes # 2.9 K/CMM 1.0 - 5.5 05/12/2016 [facility] Segs-Bands # 6.0 K/CMM 1.5 - 8.1 05/12/[address] [facility] HEMATOLOGY Basophils 0.7 % 0.0 - 1.0 05/12/2016 [facility] Eosinophils 1.6 % 0.0 - 4.0 05/12/2016 [facility] Monocytes 7.2 % 2.0 - 12.0 05/12/2016 [facility] Monocytes # 0.7 K/CMM 0.0 - 0.8 05/12/2016 [facility] Basophils # 0.1 K/CMM 0.0 - 0.2 05/12/2016 [facility] Eosinophils # 0.2 K/CMM 0.0 - 0.5 05/12/2016 [facility] Lymphocytes 29.9 % 20.0 - 40.0 05/12/2016 [facility] Segs 60.6 % 45.0 - 75.0 05/12/2016 [facility] MCV 90.5 fL 80.0 - 98.0 05/12/2016 [facility] Hgb 12.7 g/dL 12.0 - 16.0 05/12/2016 [facility] RBC X 10x6 4.15 M/CMM 4.20 - 5.40 05/12/2016 [facility] WBC X 10x3 9.8 K/CMM 3.7 - 10.4 05/12/2016 [facility] Hct 37.5 % 36.0 - 48.0 05/12/2016 [facility] RDW 13.6 % 11.5 - 14.5 05/12/2016 [facility] MCHC 33.9 g/dL 32.0 - 36.0 05/12/2016 [facility] MCH 30.7 pg 27.0 - 31.0 05/12/2016 [facility] Platelet 269 K/CMM 133 - 450 05/12/2016 [facility] [place] HEMATOLOGY MPV 7.3 fL 7.4 - 10.4 05/12/[address] [facility] Chest 1view DX Chest 1view DX Study: Frontal chest x-ray History: Short of breath Comments: The trachea is midline. The cardiomediastinal silhouette is normal in size. No pneumonia. No pleural effusions or pneumothorax. Impression: No acute cardiopulmonary disease. 05/12/2016 - - Read by: Rabia Royal MD Dictated Date/time: 05/12/16 18:25 Electronically Signed by: Rabia Royal MD 05/12/16 18:25 FINAL REPORT [facility] Lung ventilation/perfusion scan NM Lung ventilation/perfusion scan NM Exam: V/Q scan Clinical Indication: pain Dose: 10.1 mCi xenon-133; 6.1 mCi of technetium 99m MAA Findings: Ventilation scan is unremarkable. Normal washout is seen. Perfusion scan shows homogeneous perfusion bilaterally with no significant matched or mismatched defects. Impression: Low probability. 05/12/2016 - - Read by: Elvin Gates MD Dictated Date/time: 05/13/16 01:32 Electronically Signed by: Elvin Gates MD 05/13/16 01:32 FINAL REPORT [facility] Vital Signs Vital Sign Value Date Comments [facility] Systolic (mm Hg) 112 05/13/[address] [facility] Diastolic (mm Hg) 76 05/13/[address] [facility] Respitory Rate 18 05/13/[address] [facility] Heart Rate 60 05/13/[address] [facility] Temperature Oral (F) 97.5 F 05/13/[address] [facility] Heart Rate 58 05/13/[address] [facility] Temperature Oral (F) 98.0 F 05/13/[address] [facility] Systolic (mm Hg) 122 05/13/[address] [facility] Diastolic (mm Hg) 67 05/13/[address] [facility] Systolic (mm Hg) 116 05/13/[address] [facility] Diastolic (mm Hg) 69 05/13/[address] [facility] Temperature Oral (F) 98.2 F 05/13/[address] [facility] Heart Rate 73 05/13/[address] [facility] Weight 99.091 05/13/[address] [facility] Height 162.56 cm 05/13/[address] [facility] BMI Calculated 37.5 05/13/[address] [facility] Respitory Rate 22 05/13/[address] [facility] Respitory Rate 17 05/13/[address] [facility] Weight 96.818 05/12/[address] [facility] Height 162.56 cm 05/12/[address] [facility] BMI Calculated 36.64 05/12/[address] [facility] Heart Rate 80 07/10/[address] [facility] Respitory Rate 16 07/10/[address] [facility] Systolic (mm Hg) 186 07/10/[address] [facility] Diastolic (mm Hg) 84 07/10/[address] [facility] Temperature Oral (F) 98.7 F 07/10/[address] [facility] Heart Rate 75 07/10/[address] [facility] Systolic (mm Hg) 167 07/10/[address] [facility] Diastolic (mm Hg) 107 07/10/[address] [facility] Respitory Rate 16 07/10/[address] [facility] Weight 100 07/10/[address] [facility] Encounters Location Location Details Encounter Type Encounter Number Reason For Visit Attending Provider ADM Date DC Date Status Source [facility] [id number] Mellisanohelia Watts 07/10/2015 07/10/2015 [facility] Observation [id number] Tano Clarkees 05/12/2016 05/13/2016 [facility] Patients [id number] Luke Pat 12/06/2016 01/05/2017 [facility] [place] [facility] [place] [facility] Patients [id number] Luke Pat 01/15/2017 02/14/2017 [facility] [place] [facility] [place] [facility] Patients [id number] Luke Schachioma 02/18/2017 03/20/2017 [facility] [place] [facility] Outpatient Imaging [place] [facility] [id number] Kiki Kong 06/04/2017 06/05/2017 [facility] [place] Procedures Procedure Code Date Perfomer Comments Source Cholecystectomy [id number] [facility] Hysterectomy [id number] [facility] Cholecystectomy [id number] [facility] [place] Hysterectomy [id number] [facility] [place] Cholecystectomy [id number] [facility] Hysterectomy [id number] [facility]
[2018-03-30] MEDS ORDERED: MORPHINE SULFATE INJ 4 MG/ML INJ 1ML IV STA (16:55)
[2018-03-30] MEDS ORDERED: SODIUM CHLORIDE 0.9% 1000ML 1,000 ML IV STA (16:55)
[2018-03-30] MEDS ORDERED: ONDANSETRON HCL INJ 2MG/ML 2ML 2 MG/ML VIAL IV STA (16:55)
[2018-03-30 17:07] LABS: COLOR,URINE YELLOW (YELLOW); LEUKOCYTE ESTERASE ,URINE NEGATIVE (NEGATIVE); NITRITE,URINE NEGATIVE (NEGATIVE); PROTEIN,URINE DIPSTICK NEGATIVE (NEGATIVE)
[2018-03-30 17:08] LABS: BILIRUBIN,URINE NEGATIVE (NEGATIVE); CLARITY,URINE CLEAR (CLEAR); KETONES,URINE NEGATIVE (NEGATIVE); URINE UROBILINOGEN 0.2 mg/dL (0.2 - 1)
[2018-03-30 17:18] LABS: AMORPHOUS SEDIMENT,URINE MODERATE (FEW); BACTERIA,URINE MODERATE /HPF; EPITHELIAL CELLS,URINE MODERATE /LPF; MUCUS,URINE MANY (RARE); RBC,URINE 0-5 /HPF (0-5); RENAL EPITHELIAL CELLS,URINE FEW
--- NOTE | 2018-03-30 19:59 | Diagnostic Imaging Report ---
EXAM: CT Abdomen and Pelvis WITHOUT contrast INDICATION: Left-sided abdominal pain. ^STONE PROTOCOL COMPARISON: CT abdomen and pelvis 09/22/2017. 08/26/2017. 08/26/2017 TECHNIQUE: Abdomen and pelvis were scanned utilizing a multidetector helical scanner from the lung base to the pubic symphysis without administration of IV contrast. Absence of intravenous contrast decreases sensitivity for detection of focal lesions and vascular pathology. Coronal and sagittal reformations were obtained. Stone protocol is performed. IV CONTRAST: None ORAL CONTRAST: Water COMPLICATIONS: None RADIATION DOSE: Total DLP: 761.73 mGy*cm Estimated effective dose: (DLP x 0.015 x size factor) mSv CTDIvol has been reviewed. It is below the limits set by the Radiation Protocol Committee (RPC). FINDINGS: LINES and TUBES: None. LOWER THORAX: Unremarkable HEPATOBILIARY: No focal hepatic lesions. No biliary ductal dilation. GALLBLADDER: There are cholecystectomy clips. SPLEEN: No splenomegaly. PANCREAS: No focal masses or ductal dilatation. ADRENALS: No adrenal nodules KIDNEYS/URETERS: No hydronephrosis. No cystic or solid mass lesions. No stones. GI TRACT: No abnormal distention, wall thickening, or evidence of bowel obstruction. Appendix is not clearly identified. There is however no fat stranding or adenopathy in the right lower quadrant to suggest appendicitis. PELVIC ORGANS/BLADDER: Uterus is surgically absent. Both ovaries are not clearly identified. Mild pelvic floor prolapse. LYMPH NODES: No lymphadenopathy. VESSELS: There is mild atherosclerotic disease in the aorta and major arterial branches. PERITONEUM / RETROPERITONEUM: No free air or fluid. BONES: Unremarkable. SOFT TISSUES: Unremarkable. IMPRESSION: 1. No renal stones or source of left flank pain identified. 2. Pelvic floor prolapse. Signed by: Dr. Heriberto Alexis M.D. on 03/30/2018 7:55 PM
[2018-03-30] MEDS ORDERED: HYDROCODONE/APAP 10MG-325MG TAB ONE (20:25)
[2018-03-30] MEDS ORDERED: ONDANSETRON HCL 4 MG ORAL DISINTEGRATING TAB PO ONE (20:30)
[2018-03-30] MEDS ORDERED: HYDROCODONE/APAP 10MG-325MG TAB PO ONE (20:30)
[2018-03-30 20:41] LABS: BASOPHILS # (AUTO) 0.1 (0.0-0.1); BASOPHILS % 0.5 % (0.0-1.0); EOSINOPHILS # (AUTO) 0.2 (0.0-0.4); EOSINOPHILS % 1.1 % (0.0-6.0); HEMOGLOBIN 13.8 g/dL (12.0-16.0); LYMPHOCYTES # (AUTO) 4.5 (1.0-3.2); MEAN CORPUSCULAR HEMOGLOBIN 31.1 pg (28-32); MEAN CORPUSCULAR HGB CONC 33.7 g/dL (31-35); MEAN CORPUSCULAR VOLUME 92.3 fL (81-99); MONOCYTES # (AUTO) 0.8 (0.2-0.8); MONOCYTES % 5.6 % (4.4-11.3); NEUTROPHILS # (AUTO) 8.1 (2.1-6.9); NEUTROPHILS % 59.5 % (38.7-80.0); PLATELET COUNT 322 x10e3/uL (140-360); RED BLOOD COUNT 4.44 x10e6/uL (3.6-5.1); RED CELL DISTRIBUTION WIDTH 12.7 % (11.7-14.4)
[2018-03-30 21:03] LABS: ALANINE AMINOTRANSFERASE 29 IU/L (0-55); ALBUMIN 3.8 g/dL (3.5-5.0); ALBUMIN/GLOBULIN RATIO 1.2 (0.8-2.0); ALKALINE PHOSPHATASE 74 IU/L (40-150); AMYLASE 40 U/L (25-125); ANION GAP 15.5 mmol/L (8-16); BLOOD UREA NITROGEN 16 mg/dL (7-26); BUN/CREATININE RATIO 19 (6-25); CALCIUM 9.5 mg/dL (8.4-10.2); CARBON DIOXIDE 25 mmol/L (22-29); CHLORIDE 101 mmol/L (98-107); CREATININE, SERUM 0.84 mg/dL (0.57-1.11); EST GLOMERULAR FILTRATION RATE > 60 ML/MIN (60-); GLUCOSE 112 mg/dL (74-118); LIPASE 13 U/L (8-78); MAGNESIUM 2.1 MG/DL (1.3-2.1); POTASSIUM 3.5 mmol/L (3.5-5.1); SODIUM 138 mmol/L (136-145)
[2018-03-30] MEDS ORDERED: KETOROLAC TROMETHAMINE 60 MG/2 ML VIAL IM ONE (23:30)
[2018-03-30] MEDS ORDERED: ORPHENADRINE CITRATE 30 MG/ML VIAL IM ONE (23:30)
== END 2018-03-30 23:55 | disposition home or self-care (01) ==
LOC: ER 16:06
DX: R10.9 Unspecified abdominal pain (principal); R35.0 Frequency of micturition; I10 Essential (primary) hypertension; E11.9 Type 2 diabetes mellitus without complications; J45.909 Unspecified asthma, uncomplicated; E78.5 Hyperlipidemia, unspecified; M79.7 Fibromyalgia
CPT/HCPCS: 36415; 74176; 80053; 81001; 82150; 83690; 83735; 85025; 99283; J1885; J2360; Q0162

== ENCOUNTER → 2018-04-22 | Outpatient (CLI) | payer OTHER ==
--- NOTE | 2018-04-22 18:09 | Diagnostic Imaging Report ---
TECHNIQUE: Magnetic resonance imaging of the RIGHT SHOULDER was performed WITHOUT injected contrast. HISTORY: Pain, limited motion, bursitis COMPARISON: None available. FINDINGS: MUSCLES AND TENDONS: Rotator Cuff: Tendons: Supraspinatus and Infraspinatus: Low-grade articular sided partial-thickness tearing of the anterior supraspinatus tendon. Adjacent intrasubstance degeneration. Minimal intrasubstance degeneration of the infraspinatus tendon. Teres Minor: Intact Subscapularis: Intact Muscles: No focal muscle atrophy. Biceps Tendon: The long head of the biceps tendon is within the intertubercular groove. GLENOHUMERAL JOINT: Glenoid Labrum: Diffuse complex tearing and mild attenuation, including the biceps labral anchor, most notably the inferior portions of the labrum. Articular Cartilage: High-grade to full-thickness erosions. Joint Fluid: Synovitis and trace effusion. ACROMIOCLAVICULAR JOINT: Moderate hypertrophic degenerative changes of the acromioclavicular joint. Mild synovitis. BONE: The acromion is unremarkable. The bone marrow signal is heterogeneous, compatible with red marrow conversion, no specific evidence of a focal bone marrow replacing abnormality. No acute fracture. SOFT TISSUES: Otherwise, unremarkable. IMPRESSION: 1. Supraspinatus greater than infraspinatus tendinosis with low-grade partial-thickness articular sided tearing of the anterior supraspinatus tendon. 2. Moderate degenerative changes of the acromioclavicular joint and glenohumeral joint, including diffuse degenerative tearing of the labrum. Signed by: Dr. Newton Duarte D.O., M.M.M. on 04/22/2018 6:05 PM
--- NOTE | 2018-04-23 09:34 | Diagnostic Imaging Report ---
MRI SPINE CERVICAL WO HISTORY: Neck and bilateral shoulder pain COMPARISON: MRI of the thoracic spine 10/20/2017 TECHNIQUE: Sagittal T1, sagittal T2, sagittal inversion recovery, axial T2 and axial T1 weighted MR images of the cervical spine were obtained without intravenous contrast. DISCUSSION: Alignment: Straightening of the cervical lordosis. No scoliosis. Vertebrae: No definite evidence for fractures, infection, or neoplasm. Cervicomedullary junction: No abnormalities. Spinal cord: The ventral cord is mildly indented by disc at C5-C6. The cord is otherwise normal in signal and morphology from the foramen magnum through T4-T5. Soft tissues: The adenoid and palatine tonsils are mildly prominent. A few mildly prominent bilateral upper jugular chain lymph nodes are present. There is a 0.8 cm T2 hyperintense nodule in the right thyroid lobe. Mild to moderate multilevel disc degeneration is most prominent at C5-C6. This is superimposed on a congenitally narrow cervical spinal canal. Mild atlantoaxial arthrosis is present as well. C2-C3: Patent canal and foramina. C3-C4: Patent canal and foramina. C4-C5: Mild canal stenosis due to posterior disc osteophyte complex. Mild left foraminal stenosis due to uncovertebral and facet arthrosis. No significant right foraminal stenosis. C5-C6: Moderate canal stenosis due to posterior disc osteophyte complex and ligamentum flavum thickening. Mild bilateral foraminal stenoses due to uncovertebral and facet arthrosis. C6-C7: Patent canal and foramina. C7-T1: Mild bilateral foraminal stenoses due to uncovertebral and facet arthrosis. No significant canal stenosis. IMPRESSION: 1. Mild to moderate multilevel disc degeneration, most prominent at C5-C6, superimposed on a congenitally narrow cervical spinal canal. 2. Moderate C5-C6 and mild C4-C5 congenital/degenerative canal stenoses. The ventral cord is mildly indented by disc at C5-C6. 3. Mild multilevel bilateral degenerative foraminal stenoses as described above. Signed by: Dr. Quintin Will M.D. on 04/23/2018 9:30 AM
== END ==
LOC: MRI 13:51
PROVIDERS: ATTEND Physical Medicine & Rehabilitation Pain Medicine
DX: M47.22 Other spondylosis with radiculopathy, cervical region (principal); M75.51 Bursitis of right shoulder
CPT/HCPCS: 72141

== ENCOUNTER → 2019-03-18 | Outpatient (CLI) | payer OTHER ==
[~2019-03-18] MED LIST changes: +INSULIN SQ; +TRAZODONE HCL50 MG PO
--- NOTE | 2019-03-18 12:46 | Diagnostic Imaging Report ---
History: Cervical spondylosis, neck pain Comparison studies: Cervical spine MRI 04/22/2018 Technique: Sagittal T1, T2 and IR, axial T2 and axial gradient echo Intravenous contrast: None Findings: Alignment: Mild reversal the usual cervical lordosis at C5-C6. Cervicomedullary junction: No abnormalities. Patent foramen magnum. Soft tissues: No T2 hyperintense inflammatory changes. Spinal cord: Normal in size and signal from the foramen magnum through T1. Vertebrae: No fractures, infection or neoplasm. Degenerative changes: The spinal canal is congenitally narrowed. C2-C3: Patent canal and foramina. C3-C4: Mildly degenerated disc. Small central disc protrusion indents the thecal sac and contributes to mild canal stenosis, unchanged. Patent foramina. C4-C5: Mildly degenerated disc. Small left central disc protrusion indents the left ventral spinal cord and contributes to moderate spinal canal stenosis, unchanged. Patent foramina. C5-C6: Moderately degenerated disc with loss of disc height. Disc osteophyte complex and thickened ligamentum flavum contribute to moderate canal stenosis, unchanged. Mild left foraminal stenosis due to uncovertebral arthrosis. No significant right foraminal stenosis. C6-C7: Patent canal and foramina. C7-T1: Mild bilateral foraminal stenosis due to uncovertebral arthrosis. Incidental findings: Unchanged 8 mm T2 hyperintense nodule or cyst in the right thyroid lobe. IMPRESSION: 1. No significant changes from the prior cervical spine MRI of 04/22/2018. 2. Multilevel disc degeneration, worse/moderate at C5-C6. 3. Congenital on acquired degenerative canal stenosis from C3 to C6, worse/moderate at C5-C6 with small disc protrusions at C3-C4 and at C4-C5 and disc osteophyte complex at C5-C6. 4. No cord signal abnormalities. Signed by: Dr. Damian Mayberry M.D. on 03/18/2019 12:44 PM
== END ==
LOC: MRI 08:13
PROVIDERS: ATTEND Physical Medicine & Rehabilitation Pain Medicine
DX: M47.22 Other spondylosis with radiculopathy, cervical region (principal)
CPT/HCPCS: 72141

== ENCOUNTER 2019-03-31 16:20 | Observation (INO) | payer OTHER ==
[~2019-03-31] VITALS: Ht 162.6 cm; Wt 96.8 kg
--- NOTE | 2019-03-31 17:28 | Diagnostic Imaging Report ---
EXAM: CHEST 2 VIEWS DATE: 03/31/2019 4:34 PM INDICATION: Shortness of breath COMPARISON: None available. FINDINGS: The trachea is midline. The lungs are symmetrically expanded without evidence for large focal consolidation, pneumothorax, or significant pleural effusion. The cardiomediastinal silhouette and pulmonary vasculature are within normal limits. No acute osseous abnormality is identified. The surrounding soft tissues are unremarkable. IMPRESSION: No acute cardiopulmonary process identified. Signed by: Dr. Rafiq Croft MD on 03/31/2019 5:25 PM
[2019-03-31 17:43] LABS: BASOPHILS # (AUTO) 0.1 (0.0-0.1); BASOPHILS % 0.8 % (0.0-1.0); EOSINOPHILS # (AUTO) 0.1 (0.0-0.4); EOSINOPHILS % 0.6 % (0.0-6.0); HEMATOCRIT 38.8 % (34.2-44.1); HEMOGLOBIN 13.2 g/dL (12.0-16.0); MEAN CORPUSCULAR HEMOGLOBIN 31.2 pg (28-32); MEAN CORPUSCULAR VOLUME 91.7 fL (81-99); MONOCYTES # (AUTO) 0.9 (0.2-0.8); MONOCYTES % 6.2 % (4.4-11.3); NEUTROPHILS # (AUTO) 9.1 (2.1-6.9); PLATELET COUNT 330 x10e3/uL (140-360); RED BLOOD COUNT 4.23 x10e6/uL (3.6-5.1); RED CELL DISTRIBUTION WIDTH 12.5 % (11.7-14.4)
[2019-03-31 18:01] LABS: ALANINE AMINOTRANSFERASE 18 IU/L (0-55); ALBUMIN 4.1 g/dL (3.5-5.0); ALBUMIN/GLOBULIN RATIO 1.2 (0.8-2.0); ALKALINE PHOSPHATASE 97 IU/L (40-150); ANION GAP 14.7 mmol/L (8-16); BLOOD UREA NITROGEN 8 mg/dL (7-26); BUN/CREATININE RATIO 11 (6-25); CALCIUM 9.8 mg/dL (8.4-10.2); CARBON DIOXIDE 23 mmol/L (22-29); CHLORIDE 107 mmol/L (98-107); CREATINE KINASE 115 IU/L (29-168); CREATININE, SERUM 0.74 mg/dL (0.57-1.11); EST GLOMERULAR FILTRATION RATE > 60 ML/MIN (60-); GLUCOSE 170 mg/dL (74-118); POTASSIUM 3.7 mmol/L (3.5-5.1); SODIUM 141 mmol/L (136-145)
[2019-03-31 18:33] LABS: CLARITY,URINE CLEAR (CLEAR); COLOR,URINE YELLOW (YELLOW)
[2019-03-31 18:34] LABS: BILIRUBIN,URINE NEGATIVE (NEGATIVE); KETONES,URINE NEGATIVE (NEGATIVE); LEUKOCYTE ESTERASE ,URINE NEGATIVE (NEGATIVE); NITRITE,URINE NEGATIVE (NEGATIVE); PROTEIN,URINE DIPSTICK NEGATIVE (NEGATIVE); URINE UROBILINOGEN 0.2 mg/dL (0.2 - 1)
[2019-03-31 18:34] LABS: INR 0.87; PROTHROMBIN TIME 12.3 seconds (11.9-14.5)
[2019-03-31 18:35] LABS: PARTIAL THROMBOPLASTIN TIME 26.2 seconds (23.8-35.5)
[2019-03-31] MEDS ORDERED: ONDANSETRON HCL INJ 2MG/ML 2ML 2 MG/ML VIAL IV STA (18:51)
[2019-03-31] MEDS ORDERED: MORPHINE SULFATE INJ 4 MG/ML INJ 1ML IV STA (18:51)
[2019-03-31] MEDS ORDERED: MORPHINE SULFATE INJ 4 MG/ML INJ 1ML ONE (19:02)
[2019-03-31 19:10] LABS: EPITHELIAL CELLS,URINE RARE /LPF; RBC,URINE 0-5 /HPF (0-5)
[2019-03-31 19:18] LABS: AMPHETAMINES SCREEN,URINE NEGATIVE (NEGATIVE); BENZODIAZEPINES SCREEN,URINE NEGATIVE (NEGATIVE); PHENCYCLIDINE SCREEN,URINE NEGATIVE (NEGATIVE)
[2019-03-31 20:00] VITALS: BP 151/67
[2019-03-31] MEDS ORDERED: ESCITALOPRAM OX20 MG PO (20:45)
[2019-03-31] MEDS ORDERED: NOVOLOG MI100 UNIT/1 SC (20:45)
[2019-03-31] MEDS ORDERED: DICYCLOMINE HCL20 MG PO (20:45)
[2019-03-31] MEDS ORDERED: TRESIBA100 UNIT/1 SC (20:45)
[2019-03-31] MEDS ORDERED: ATORVASTATIN CA20 MG PO (20:53)
[2019-03-31] MEDS ORDERED: OLMESARTAN-HCT1 EACH PO (20:53)
[2019-03-31] MEDS ORDERED: MELOXICAM7.5 MG PO (20:53)
[2019-03-31] MEDS ORDERED: SUCRALFATE1 GM PO (20:53)
[2019-03-31] MEDS ORDERED: GRALISE600 MG PO (20:53)
[2019-03-31] MEDS ORDERED: TIZANIDINE HCL4 MG PO (20:53)
[2019-03-31] MEDS ORDERED: NEPHRO-VITE TABL1 EA PO (20:53)
[2019-03-31] MEDS ORDERED: METAXALONE400 MG PO (20:53)
[2019-03-31] MEDS ORDERED: BISOPROLOL-HCT1 EAC1 PO (20:53)
[2019-03-31] MEDS ORDERED: BUTALB-ACETAMI1 EACH PO (20:53)
[2019-03-31] MEDS ORDERED: CLOPIDOGREL75 MG PO (20:53)
[2019-03-31] MEDS ORDERED: AMLODIPINE BESYL5 MG PO (20:53)
[2019-03-31] MEDS ORDERED: Folic acid PO (20:58)
[2019-03-31] MEDS ORDERED: FUROSEMIDE INJ 10 MG/ML 4 ML VIAL IV NR (21:00)
[2019-03-31 21:09] VITALS: BP 151/67
[2019-03-31] MEDS ORDERED: ACETAMIN/BUTALBITAL/CAFFEINE TAB PO PRN (21:30)
[2019-03-31] MEDS ORDERED: NON-FORMULARY MEDICATION (Insuln Asp Prt/Insulin Aspart (Novolog Mix 70-30 Flexpen Syrn) 1 SC SCH (21:30)
[2019-03-31] MEDS: INSULIN DEGLUDEC 60 UNIT SC SCH (21:30)
[2019-03-31] MEDS ORDERED: ONDANSETRON HCL 4 MG ORAL DISINTEGRATING TAB PO PRN (21:30)
[2019-03-31] MEDS: SUCRALFATE 1 GM TAB PO SCH (22:18)
[2019-03-31] MEDS: ATORVASTATIN 40 MG TAB PO SCH (22:18)
[2019-03-31] MEDS: HYDROCODONE/APAP 10MG-325MG TAB PO PRN (22:18)
[2019-03-31] MEDS: INSULIN ASPART 70/30 100 UNITS/ML VIAL SC SCH (22:18)
--- NOTE | 2019-03-31 22:21 | Diagnostic Imaging Report ---
Ventilation/perfusion lung scan Clinical Information: Shortness of breath, legs heavy, headache Comparison: CXR single view Discussion: Xenon-133 gas 18 mCi was administered via inhalation. Dynamic images of the lungs in the posterior projection were obtained through single breath, equilibrium, and washout phases. Distribution of tracer activity appears physiologic throughout the lungs.. There are no segmental ventilatory defects. Washout of tracer is normal with no evidence of air trapping. Perfusion images of the lungs were obtained in multiple projections following intravenous administration of approximately 6 mCi of Tc-99m MAA. Distribution of tracer appears physiologic throughout the lungs. The contours of the lungs are well demarcated. There are no segmental perfusion defects of any size. The cardiomediastinal silhouette is unremarkable. Impression: Scan findings represent VERY LOW probability for acute pulmonary embolic disease based on the PIOPED II criteria. Signed by: Dr. Raquel Bronson MD on 03/31/2019 10:19 PM
[2019-03-31 22:59] VITALS: BP 151/67
[2019-03-31 23:29] LABS: CREATINE KINASE 100 IU/L (29-168)
[2019-04-01] VITALS (8 sets, daily range): BP systolic 84–135; BP diastolic 55–69
[2019-04-01] MEDS: HYDROCODONE/APAP 10MG-325MG TAB PO PRN ×3 (04:21→22:23)
[2019-04-01 05:29] LABS: BASOPHILS # (AUTO) 0.1 (0.0-0.1); EOSINOPHILS # (AUTO) 0.2 (0.0-0.4); EOSINOPHILS % 1.7 % (0.0-6.0); HEMATOCRIT 37.4 % (34.2-44.1); HEMOGLOBIN 12.4 g/dL (12.0-16.0); LYMPHOCYTES # (AUTO) 3.5 (1.0-3.2); LYMPHOCYTES % 28.2 % (18.0-39.1); MEAN CORPUSCULAR HEMOGLOBIN 30.9 pg (28-32); MEAN CORPUSCULAR HGB CONC 33.2 g/dL (31-35); MEAN CORPUSCULAR VOLUME 93.3 fL (81-99); MONOCYTES % 8.1 % (4.4-11.3); NEUTROPHILS # (AUTO) 7.4 (2.1-6.9); NEUTROPHILS % 60.7 % (38.7-80.0); PLATELET COUNT 318 x10e3/uL (140-360); RED BLOOD COUNT 4.01 x10e6/uL (3.6-5.1); RED CELL DISTRIBUTION WIDTH 12.5 % (11.7-14.4)
[2019-04-01 06:01] LABS: ALANINE AMINOTRANSFERASE 15 IU/L (0-55); ALBUMIN 3.7 g/dL (3.5-5.0); ALBUMIN/GLOBULIN RATIO 1.3 (0.8-2.0); ALKALINE PHOSPHATASE 88 IU/L (40-150); ANION GAP 12.4 mmol/L (8-16); BLOOD UREA NITROGEN 13 mg/dL (7-26); BUN/CREATININE RATIO 18 (6-25); CALCIUM 9.6 mg/dL (8.4-10.2); CARBON DIOXIDE 27 mmol/L (22-29); CHLORIDE 105 mmol/L (98-107); CREATININE, SERUM 0.71 mg/dL (0.57-1.11); EST GLOMERULAR FILTRATION RATE > 60 ML/MIN (60-); GLUCOSE 159 mg/dL (74-118); POTASSIUM 3.4 mmol/L (3.5-5.1); SODIUM 141 mmol/L (136-145)
[2019-04-01 06:20] LABS: CREATINE KINASE 85 IU/L (29-168)
[2019-04-01] MEDS ORDERED: NON-FORMULARY MEDICATION (Escitalopram Oxalate 20 MG) PO SCH (09:00)
[2019-04-01] MEDS: METAXALONE 800 MG TAB PO SCH ×4 (09:00→21:25)
[2019-04-01] MEDS ORDERED: BISOPROLOL/HCTZ 5/6.25MG TAB PO SCH (09:00)
[2019-04-01] MEDS ORDERED: HYDROCHLOROTHIAZIDE 25 MG TAB PO SCH (09:00)
[2019-04-01] MEDS: INSULIN ASPART 70/30 100 UNITS/ML VIAL SC SCH ×3 (09:00→21:00)
[2019-04-01] MEDS: INSULIN DEGLUDEC 60 UNIT SC SCH (09:00)
[2019-04-01] MEDS: MELOXICAM 7.5 MG TAB PO SCH (09:10)
[2019-04-01] MEDS: TIZANIDINE HCL 4 MG TAB PO SCH ×3 (09:13→21:25)
[2019-04-01] MEDS: POTASSIUM CHLORIDE 20 MEQ TAB CR PO SCH ×2 (09:14→16:37)
[2019-04-01] MEDS: AMLODIPINE BESYLATE 5 MG TAB PO SCH (09:14)
[2019-04-01] MEDS: GABAPENTIN 300 MG CAP PO SCH ×3 (09:14→21:25)
[2019-04-01] MEDS: CLOPIDOGREL BISULFATE 75 MG TAB PO SCH (09:14)
[2019-04-01] MEDS: ESCITALOPRAM OXALATE 10 MG TAB PO SCH (09:14)
[2019-04-01] MEDS: FOLIC ACID 1 MG TAB PO SCH ×2 (09:15→16:36)
[2019-04-01] MEDS: HYDROCHLOROTHIAZIDE 25 MG TAB PO SCH (09:16)
[2019-04-01] MEDS: DICYCLOMINE HCL 20 MG TAB PO SCH ×4 (09:16→21:25)
[2019-04-01] MEDS: OLMESARTAN 20 MG TAB PO SCH (09:16)
[2019-04-01] MEDS: SUCRALFATE 1 GM TAB PO SCH ×3 (09:16→21:25)
[2019-04-01] MEDS: PANTOPRAZOLE SOD 40 MG TABEC PO SCH ×2 (09:17→21:25)
[2019-04-01] MEDS ORDERED: POTASSIUM CHLORIDE 10MEQ EA PO ONE (10:30)
[2019-04-01] MEDS ORDERED: TRESIBA FL100 UNIT/1 SC (10:30)
[2019-04-01] MEDS ORDERED: SODIUM CHLORIDE 0.9% 250ML 250 ML IV ONE ×2 (10:45→11:20)
[2019-04-01] MEDS ORDERED: ALBUTEROL/IPRATROPIUM 3 ML NEB ONE (11:19)
[2019-04-01] MEDS: ALBUTEROL/IPRATROPIUM 3 ML NEB NEB SCH ×2 (11:30→20:20)
--- NOTE | 2019-04-01 11:30 | History and Physical ---
CHIEF COMPLAINT: "I can only walk a few feet and I become short of breath." HISTORY OF PRESENT ILLNESS: This is a 59-year-old woman, who presents to [facility] with a 2-week history of worsening shortness of breath with exertion. The patient states the symptoms became much worse on the day of admission. The patient denies any chest pain or tightness. The patient states if she walks as little as 15 feet, she becomes very winded. The patient states in 2015 she underwent a left heart catheterization, which revealed nonobstructive coronary artery disease. In the emergency room, the patient had a 12-lead EKG done, which did not reveal any ischemic changes, but did reveal poor R-wave progression in anterior leads. The preliminary echocardiogram reveals a preserved left ventricular ejection fraction of 60% on this admission. In the emergency room, the patient had a chest x-ray that was unremarkable. The patient underwent a V/Q lung scan early this morning, which revealed a very low probability of acute pulmonary embolic disease. [place] [address] with 64% segmenters. Repeat blood work today reveals white blood cell count 12,200 with 60% segmented neutrophils. In the emergency room, the patient was found to have BUN and creatinine of 8 and 0.74 respectively. The patient has had serial cardiac enzymes namely troponin I's, which have all been negative. The patient's B-type natriuretic peptide level was normal at 25. Serology was negative for type A and B influenza. The urine toxicology also negative. Urinalysis also was normal. The patient was admitted for further evaluation. 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 REVIEW OF SYSTEMS: GENERAL: Weight is stable. No fever or chills. HEENT: No headaches. No visual changes. CARDIOVASCULAR/RESPIRATORY: Complains of shortness of breath, which is minimal on exertion. Also complains of orthopnea, which has been present for 2 weeks. Denies any chest pain. GI: No nausea or vomiting. No constipation. : No UTI symptoms. NEUROMUSCULAR: The patient states she has intermittent swelling in the right upper and left lower extremities. ALLERGIES: 1. IODINE. 2. SHELLFISH. PAST MEDICAL HISTORY: 1. Hyperlipidemia. 2. Hypertensive heart disease. 3. Type 2 diabetes mellitus. 4. Obesity, BMI 36. 5. Asthma. 6. Anxiety disorder. PAST SURGICAL HISTORY: 1. Hysterectomy. 2. Left heart catheterization in 2016, (no percutaneous coronary intervention performed). 3. Laparoscopic cholecystectomy. FAMILY HISTORY: The patient states that she has multiple members with coronary artery disease. SOCIAL HISTORY: This woman is , lives with her female significant other. She works at a local retail store. No history of tobacco or alcohol use. HOME MEDICATIONS: 1. Amlodipine 5 mg daily. 2. Pantoprazole 40 mg daily. 3. Dicyclomine 20 mg four times a day as needed for abdominal cramping. 4. Lexapro 20 mg daily. 5. Carafate 1 g three times a day before meals. 6. Potassium chloride 20 mEq daily. 7. Ondansetron 4 mg every 6 hours p.r.n. nausea, vomiting. 8. Meloxicam 15 mg once daily as needed for arthritic pain. 9. Folic acid 1 mg b.i.d. 10. Fioricet 1 pill every 4 hours p.r.n. headaches. 11. [place] 10/325 one daily as needed for severe pain. 12. Skelaxin 800 mg q.i.d. p.r.n. muscle spasms. 13. Tizanidine 4 mg t.i.d. p.r.n. muscle spasms. 14. Gralise 600 mg t.i.d. 15. NovoLog insulin 16 units 3 times daily with meals. 16. Tresiba insulin 60 units subcutaneously daily. 17. Atorvastatin 40 mg at bedtime. 18. Clopidogrel 75 mg daily. PHYSICAL EXAMINATION: GENERAL: She is awake, alert, and fluent. She is pleasant, her adult female significant other is at bedside. VITAL SIGNS: Blood pressure 116/68, pulse is 50, respiratory rate is 18, temperature 97.4 oxygen saturation is 98% on room air. Height is 5 feet 4 inches, weight is 213 pounds, BMI 36. INTEGUMENT: Skin is warm and dry. No pallor, jaundice, diaphoresis. Anicteric sclerae with moist mucous membranes. NECK: Supple. No evidence of jugular venous distention. CARDIOVASCULAR: Distant heart sounds. Bradycardic rate. Regular rhythm. LUNGS: The patient has moderate air entry bilaterally, but no rales, rhonchi, or wheezes. ABDOMEN: Obese and benign. EXTREMITIES: No edema or deformity. NEUROLOGIC: Intact. DIAGNOSES: 1. Exertional dyspnea, likely [id number] diastolic heart failure. 2. Acute bronchitis, likely. 3. Hypertensive heart disease. 4. Asthma. 5. Type 2 diabetes mellitus. 6. History of nonobstructive coronary artery disease (left heart catheterization in 2016, which did not result in percutaneous coronary intervention). PLAN: 1. Start empiric intravenous azithromycin and ceftriaxone for patient's acute bronchitis. 2. Nebulized bronchodilators. 3. Follow up on final echocardiogram report. 4. Intravenous furosemide as needed. 5. Consult Cardiology. 6. The patient may benefit from a left heart catheterization because she states that she underwent a nuclear stress test in February 2019 at her aircraft part assembler's office and it was unremarkable. I spent an hour in the care of this patient. MD CRISPIN Cope/KAMINI /[id number] MTDD
[2019-04-01] MEDS ORDERED: SODIUM CHLORIDE 0.9% 250ML 250 ML ONE (12:03)
[2019-04-01] MEDS: CEFTRIAXONE SOD 1 GM/NS 50 ML 50 ML IV SCH (12:17)
[2019-04-01] MEDS: AZITHROMYCIN 500MG/NS 250 ML 250 ML IV SCH (12:30)
--- NOTE | 2019-04-01 16:26 | Diagnostic Imaging Report ---
Exam: CT chest Clinical history: Shortness of breath Technique: Helical images of the chest were obtained without contrast DOSE REDUCTION: The exams was performed according to the departmental dose-optimization program which includes automated exposure control, adjustment of the mA and/or kV according to patient size and/or use of iterative reconstruction technique. Findings: There is no evidence of only consolidation, edema, nodule, interstitial disease, or pneumothorax. The tracheobronchial tree is clear. The cardiac size is within normal limits. The great vessels are normal in caliber and configuration. There is no evidence of mediastinal or hilar lymphadenopathy. The visualized upper abdominal solid organs are unremarkable. Impression: 1. Status post cholecystectomy. Otherwise, unremarkable CT of chest. Signed by: Dr. Chino Thorne MD on 04/01/2019 4:24 PM
--- NOTE | 2019-04-01 20:48 | Consultation ---
DATE OF CONSULTATION: Pulmonary Consultation LOCATION: She is currently in room #214. HISTORY OF PRESENT ILLNESS: Ms. Christianson is a 59-year-old woman, who has a history of long-standing asthma. She also has a history of coronary disease dating back over 10 years. Her last catheterization was 5 to 7 years ago that apparently she did have blockages in her own words. She presented to the hospital. Basically, a 3-day history of increasing shortness of breath with exertion, leg feeling heavy, and dizziness. She took her asthma inhaler without any relief. She states this is not consistent with her usual asthma symptoms. She has no cough. She has no sputum. She also denies orthopnea. She does say she periodically has swelling of the left leg and right arm. She does describe some vague heaviness in her body and chest. REVIEW OF SYSTEMS: Otherwise unremarkable. PAST MEDICAL HISTORY: Notable for hypertension, diabetes, coronary artery disease, and obesity. PAST SURGICAL HISTORY: Includes 2 separate heart caths, hysterectomy, and cholecystectomy. SOCIAL HISTORY: Notable for vaping. FAMILY HISTORY: Notable for coronary artery disease. MEDICATIONS: Outpatient medications have been reviewed. She does take p.r.n. albuterol, but is not on maintenance medication. PHYSICAL EXAMINATION: VITAL SIGNS: She is afebrile. Heart rates in the 50s, respiratory rate in the teens. Blood pressures have been okay, she did have a marginally low 84/55. Saturation with room air is 100%. GENERAL APPEARANCE: This is an obese pleasant woman, seated at the edge of the bed. She is not in any distress. HEAD: Normocephalic, atraumatic. Pupils are round and reactive. Her mucous membranes are moist. NECK: Supple. Trachea midline. CHEST: Clear to auscultation. Scant wheeze on the right. HEART: Regular rate and rhythm. No murmurs, rubs, or gallops heard. ABDOMEN: Obese. EXTREMITIES: No cyanosis, clubbing, or edema. SKIN: Warm and dry. There is no rash. NEUROLOGIC: Her speech is fluent. Cranial nerves and motor are grossly intact. LABORATORY DATA: She had a chest x-ray done, which is unremarkable. She had a V/Q scan, which is a very low probability. Labs, she had a negative influenza, CBC is notable for mild leukocytosis without really significant left shift. Hemoglobin and hematocrit of 13 and 38. Platelets are normal. Chemistry was notable for potassium of 3.4, glucose 159. Cardiac enzymes were negative. Coags were normal. Tox screen was negative. ASSESSMENT: 1. Shortness of breath. 2. Asthma, personal history without exacerbation. 3. Tobacco use with vaping device. 4. Coronary artery disease. RECOMMENDATIONS AND PLAN: At this point, we will get a CT of the chest without contrast around at the workup. She can continue with albuterol. I do think it may be worthwhile since she is a diabetic getting possibly repeat catheterization for further cardiac workup. MD SILAS Gann/MODL /[id number]
[2019-04-01] MEDS: ATORVASTATIN 40 MG TAB PO SCH (21:25)
[2019-04-02] VITALS (12 sets, daily range): BP systolic 116–145; BP diastolic 57–76
--- NOTE | 2019-04-02 01:18 | Consultation ---
DATE OF CONSULTATION: 04/01/2019 Cardiology Consult Note REASON FOR CONSULT: Dyspnea on exertion and chest pain. CHIEF COMPLAINT: Shortness of breath with exertion and chest pain. HISTORY OF PRESENT ILLNESS: A 59-year-old female with history of asthma, hypertension, hyperlipidemia, who presents with worsening dyspnea on exertion for the past several weeks, especially in the last few days. She has a history of nonobstructive CAD, had a catheterization several years ago, which showed 40% blockage . No history of heart failure. There is history of asthma, but her shortness of breath is much different per the patient. She has not had any wheezing. PAST MEDICAL HISTORY: 1. Asthma. 2. Hypertension. 3. Hyperlipidemia. 4. Nonobstructive CAD. SOCIAL HISTORY: She does not smoke, drink, or abuse drugs. FAMILY HISTORY: Noncontributory. REVIEW OF SYSTEMS: As per HPI, otherwise negative. OUTPATIENT MEDICATIONS: Reviewed. ALLERGIES: REVIEWED, ALLERGIC TO IODINE AND SULFA. OBJECTIVE: VITAL SIGNS: Temperature afebrile, pulse 55, respiratory rate 18, blood pressure 102/59, saturating 99% on room air. GENERAL: Middle-aged female, no acute distress. CARDIOVASCULAR: Regular rate and rhythm. No murmurs, rubs, or gallops. LUNGS: Clear to auscultation bilaterally. ABDOMEN: Obese, soft, nontender, nondistended. NEURO AND PSYCH: Alert and oriented to person, place, and time. Normal affect. INPATIENT MEDICATIONS: Reviewed. LABORATORY DATA: Reviewed. Notable for white count of 14.2, improved to 12.2 today. Troponins negative x2. Blood glucose elevated at 157. Urine tox is negative. Influenza negative. IMAGING DATA: Reviewed. Chest CT shows no acute abnormality. CT scan shows low probability for PE. ASSESSMENT: 1. Dyspnea on exertion. 2. Chest pain with exertion. PLAN: Her chest pain and dyspnea have both typical and atypical features . Discussed options with the patient. She prefers to proceed with coronary angiogram and the right heart catheterization. She is fine to do these procedures tomorrow. Please keep n.p.o. after midnight. Echocardiogram results are pending. MD MARYJO Thompson/KAMINI /[id number]
[2019-04-02] MEDS: ALBUTEROL/IPRATROPIUM 3 ML NEB NEB SCH ×3 (01:35→13:00)
[2019-04-02 07:14] LABS: BASOPHILS # (AUTO) 0.1 (0.0-0.1); BASOPHILS % 1.2 % (0.0-1.0); EOSINOPHILS # (AUTO) 0.2 (0.0-0.4); EOSINOPHILS % 1.7 % (0.0-6.0); HEMOGLOBIN 11.8 g/dL (12.0-16.0); LYMPHOCYTES # (AUTO) 3.6 (1.0-3.2); LYMPHOCYTES % 32.7 % (18.0-39.1); MEAN CORPUSCULAR HEMOGLOBIN 30.8 pg (28-32); MEAN CORPUSCULAR HGB CONC 32.8 g/dL (31-35); MONOCYTES # (AUTO) 0.7 (0.2-0.8); MONOCYTES % 6.8 % (4.4-11.3); NEUTROPHILS # (AUTO) 6.3 (2.1-6.9); NEUTROPHILS % 57.2 % (38.7-80.0); PLATELET COUNT 315 x10e3/uL (140-360); RED BLOOD COUNT 3.83 x10e6/uL (3.6-5.1); RED CELL DISTRIBUTION WIDTH 12.5 % (11.7-14.4)
[2019-04-02 07:31] LABS: ANION GAP 11.7 mmol/L (8-16); BLOOD UREA NITROGEN 15 mg/dL (7-26); BUN/CREATININE RATIO 21 (6-25); CALCIUM 9.2 mg/dL (8.4-10.2); CARBON DIOXIDE 25 mmol/L (22-29); CHLORIDE 108 mmol/L (98-107); CREATININE, SERUM 0.73 mg/dL (0.57-1.11); EST GLOMERULAR FILTRATION RATE > 60 ML/MIN (60-); GLUCOSE 108 mg/dL (74-118); POTASSIUM 3.7 mmol/L (3.5-5.1); SODIUM 141 mmol/L (136-145)
[2019-04-02] MEDS: HYDROCODONE/APAP 10MG-325MG TAB PO PRN (07:37)
[2019-04-02] MEDS: POTASSIUM CHLORIDE 20 MEQ TAB CR PO SCH ×2 (09:00→14:08)
[2019-04-02] MEDS: METAXALONE 800 MG TAB PO SCH ×2 (09:00→14:06)
[2019-04-02] MEDS: DICYCLOMINE HCL 20 MG TAB PO SCH ×2 (09:00→14:06)
[2019-04-02] MEDS: GABAPENTIN 300 MG CAP PO SCH ×2 (09:00→14:07)
[2019-04-02] MEDS: TIZANIDINE HCL 4 MG TAB PO SCH ×2 (09:00→14:07)
[2019-04-02] MEDS: INSULIN ASPART 70/30 100 UNITS/ML VIAL SC SCH (09:00)
[2019-04-02] MEDS: INSULIN DEGLUDEC 60 UNIT SC SCH (09:00)
[2019-04-02] MEDS: FOLIC ACID 1 MG TAB PO SCH ×2 (09:00→14:07)
[2019-04-02] MEDS: SUCRALFATE 1 GM TAB PO SCH ×2 (09:00→14:07)
--- NOTE | 2019-04-02 09:20 | Progress Note ---
DATE: 04/02/2019 SUBJECTIVE: This is a 59-year-old woman, who was initially admitted to [facility] with diagnosis of acute dyspnea likely secondary to diastolic heart failure as well as asthma exacerbation secondary to acute bronchitis. The patient states she is experiencing less shortness of breath, but she still has dyspnea on exertion. The patient states she also feels heart pounding when she ambulates. This morning blood work was unremarkable. White blood cell count is 10,900 with 57% segmented neutrophils. The patient underwent a CT of chest without contrast last night, which was unremarkable. The patient is actually scheduled for left heart catheterization today. REVIEW OF SYSTEMS: As per HPI. OBJECTIVE: GENERAL: She is awake, alert and fully oriented. She has a flat depressed affect. VITAL SIGNS: Blood pressure is 146/72, pulse 72, respiratory rate 18, oxygen saturation is 100% on room air, temperature 98.5, and BMI of 36. INTEGUMENT: Skin is warm and dry. No pallor, jaundice, or diaphoresis. HEENT: Anterior sclerae. Moist mucous membranes. NECK: Supple. CARDIOVASCULAR: Distant heart sounds. Regular rate and rhythm with a split S2. LUNGS: The patient has moderate air entry bilaterally, but no rales, rhonchi, or wheezes appreciated. ABDOMEN: Obese. Benign. EXTREMITIES: No edema or deformity. NEUROLOGIC: Intact. ASSESSMENT: 1. Exertional dyspnea likely acute on chronic diastolic heart failure. 2. Acute bronchitis, likely. 3. Hypertensive heart disease. 4. Obstructive sleep apnea. 5. Asthma. 6. Type 2 diabetes. 7. Nonobstructive coronary artery disease. PLAN: 1. Agree with coronary angiogram as well as right heart catheterization to assess for any evidence of pulmonary hypertension. 2. Continue intravenous antibiotics for the patient's acute bronchitis. 3. Continue nebulized bronchodilators for the patient's asthma exacerbation. 4. If heart catheterization is unremarkable then the patient likely will be discharged home today. I spent 30 minutes in the care of this patient. MD CRISPIN Cope/KAMINI /[id number]
[2019-04-02] MEDS ORDERED: MIDAZOLAM HCL 2 MG/2 ML VIAL ONE (10:23)
[2019-04-02] MEDS ORDERED: SODIUM CHLORIDE 0.9% 1000ML 1,000 ML ONE (10:24)
[2019-04-02] MEDS ORDERED: VERAPAMIL HCL 2.5 MG/ML 2 ML VIAL ONE (10:24)
[2019-04-02] MEDS ORDERED: HEPARIN SOD/SOD CHLORIDE 2,000 ML ONE (10:24)
[2019-04-02] MEDS ORDERED: LIDOCAINE HCL 2% LOCAL 20 ML VIAL ONE (10:24)
[2019-04-02] MEDS ORDERED: FENTANYL CITRATE/PF 100MCG/2 ML INJ ONE (10:24)
[2019-04-02] MEDS ORDERED: IOPAMIDOL 370 MG/ML 200 ML INFUS..BTL INJ ONE (10:24)
[2019-04-02] MEDS ORDERED: METHYLPREDNISOLONE SOD SUCC 125 MG/2ML VIAL ONE (10:38)
[2019-04-02] MEDS ORDERED: DIPHENHYDRAMINE HCL INJ 50 MG/ML VIAL ONE (10:38)
[2019-04-02] MEDS ORDERED: FAMOTIDINE 20 MG/2 ML VIAL IV ONE (10:38)
[2019-04-02] MEDS ORDERED: HYDROCODONE/APAP 5MG-325MG TAB ONE (12:02)
[2019-04-02] MEDS: OLMESARTAN 20 MG TAB PO SCH (14:04)
[2019-04-02] MEDS: MELOXICAM 7.5 MG TAB PO SCH (14:04)
[2019-04-02] MEDS: HYDROCHLOROTHIAZIDE 25 MG TAB PO SCH (14:04)
[2019-04-02] MEDS: ESCITALOPRAM OXALATE 10 MG TAB PO SCH (14:04)
[2019-04-02] MEDS: AMLODIPINE BESYLATE 5 MG TAB PO SCH (14:05)
[2019-04-02] MEDS: CLOPIDOGREL BISULFATE 75 MG TAB PO SCH (14:05)
[2019-04-02] MEDS: PANTOPRAZOLE SOD 40 MG TABEC PO SCH (14:08)
[2019-04-02] MEDS: CEFTRIAXONE SOD 1 GM/NS 50 ML 50 ML IV SCH (14:12)
[2019-04-02] MEDS: AZITHROMYCIN 500MG/NS 250 ML 250 ML IV SCH (16:00)
[2019-04-02] MEDS ORDERED: PREDNISONE20 MG PO (17:28)
[2019-04-02] MEDS ORDERED: ceftin PO (17:29)
--- NOTE | 2019-04-02 19:17 | Progress Note ---
DATE: 04/02/2019 Pulmonary Progress Note SUBJECTIVE: She has no new complaints. Still some dyspnea with exertion. Interval events: She had left and right heart catheterization. There was no coronary artery disease. She did have right heart catheterization showing a pulmonary capillary wedge of 18 and RV pressure of 38. OBJECTIVE DATA: VITAL SIGNS: Temperature 98.5, pulse 72, blood pressure 145/72, 100% saturation on room air. Height 5 feet and 4 inches, weight 213 pounds. BMI 36. GENERAL APPEARANCE: This is an obese pleasant woman, nondistressed, seen in the PACU after cardiac cath. HEENT: Head is normocephalic, atraumatic. Pupils round and reactive. Mucous membranes moist. LUNGS: Clear. HEART: Regular rate and rhythm. ABDOMEN: Soft, nontender, without masses, rebound, or guarding. EXTREMITIES: Have no cyanosis, clubbing, or edema. NEUROLOGIC: She is awake and alert. LABORATORY DATA: Electrolytes have been reviewed, are unremarkable. BUN and creatinine are 15 and 0.73. Glucose 108. Hemoglobin is 11.8. White count and platelets within normal limits. LFTs are normal. A CT of the chest shows no acute process. The lungs are essentially clear. There is no infiltrates or effusions or nodules seen. Medications have been reviewed. ASSESSMENT: 1. Shortness of breath/dyspnea on exertion. I suspect it is multifactorial. There may be some degree of diastolic heart failure contributing as well as deconditioning, asthma, and obstructive sleep apnea. 2. Obstructive sleep apnea suspected. 3. Coronary artery disease: The current catheterization did not show any coronary artery disease. 4. Congestive heart failure, chronic diastolic. 5. Asthma, personal history. RECOMMENDATIONS: I have discussed with her the importance of sleep study. We can also do cardiopulmonary testing from the office. I recommend that she follow up in approximately two weeks. Dr. Langley, thank you for allowing me to participate in the care of Ms. Christianson. MD SILAS Gann/MODL /[id number]
--- NOTE | 2019-04-05 09:39 | Discharge Summary ---
ADMIT DIAGNOSES: 1. Exertional dyspnea, likely secondary to [id number] diastolic heart failure. 2. Acute bronchitis. 3. Hypertensive heart disease. 4. Asthma. 5. Type 2 diabetes mellitus. 6. History of nonobstructive coronary artery disease. DISCHARGE DIAGNOSES: 1. Acute bronchitis. 2. Hypertensive heart disease. 3. Asthma. 4. Type 2 diabetes mellitus. 5. Status post right heart catheterization with coronary angiogram (no percutaneous coronary intervention performed). HOSPITAL COURSE: This is a 59-year-old woman, who was initially admitted to [facility] with a diagnosis of exertional dyspnea, likely secondary to [id number]-[id number] diastolic heart failure. During this hospitalization, the patient underwent serial cardiac enzymes as well as electrocardiograms, which did not reveal any evidence of acute myocardial ischemia or infarction. The patient also had an echocardiogram performed during this hospitalization that revealed a preserved left ventricular ejection fraction of 60% to 65%. Moreover, the echocardiogram did not reveal any evidence of diastolic heart failure. The patient was seen by friction welding machine operator during this hospitalization namely, Dr. William Lamar, who performed right heart catheterization with coronary angiography. The patient did not require percutaneous coronary intervention according to the friction welding machine operator. The patient was also seen by Dr. En Asher, rn teacher because of her asthma and acute bronchitis. The patient's acute bronchitis improved with intravenous ceftriaxone and azithromycin. On admission, the [place] [id number] with 64% segmenters. On day of discharge, white blood cell count was 67950 with 57% segmented neutrophils. The patient's hospitalization was unremarkable. CONDITION ON DISCHARGE: Stable. DISCHARGE MEDICATIONS: 1. Ceftin 500 b.i.d. for 5 days. 2. Amlodipine 5 mg daily. 3. Atorvastatin 40 mg at bedtime. 4. Fioricet with caffeine 1 pill every 4 hours p.r.n. migraine headache. 5. Clopidogrel 75 mg daily. 6. Dicyclomine 20 mg four times daily as needed for abdominal cramping. 7. Escitalopram 20 mg daily. 8. Folic acid 1 mg b.i.d. 9. Gabapentin 600 mg t.i.d. 10. Hydrocodone/acetaminophen 10/325 one daily p.r.n. pain. 11. Tresiba insulin 60 units subcutaneous daily. 12. NovoLog insulin 70/30, 16 units 3 times a day with meals. 13. Meloxicam 15 mg daily. 14. Metaxalone 800 mg q.i.d. p.r.n. muscle spasms. 15. Pantoprazole 40 mg daily. 16. Potassium chloride 20 mEq twice a day. 17. Prednisone 40 mg daily for 5 days. 18. Carafate 1 g t.i.d. before meals. 19. Tizanidine 4 mg t.i.d. p.r.n. muscle spasms. FOLLOWUP INSTRUCTIONS: The patient was instructed to follow up with her primary care physician namely myself, Dr. Langley within 2 weeks. William E MD CRISPIN Langley/KAMINI /[id number] cc: MD William Gann MD
--- NOTE | 2019-06-03 10:18 | Operative Report ---
DATE OF PROCEDURE: 04/02/2019 SURGEON: William Lamar MD INDICATIONS FOR PROCEDURE: Chest pain, shortness of breath. PREPROCEDURE ASSESSMENT: Risks, benefits, and alternatives of treatment explained to the patient prior to the procedure. The patient was deemed an appropriate candidate for moderate sedation. Informed consent was obtained and documented in the medical record. MEDICATIONS: Please see nursing notes for medications administered throughout the procedure. PROCEDURES PERFORMED: 1. Coronary angiography. 2. Right heart catheterization. 3. Left heart catheterization. PROCEDURE IN DETAIL: The patient was brought to the cardiac catheterization laboratory in a fasting state. Right wrist was prepped and draped in a sterile fashion. Right antecubital area was prepped and draped in a sterile fashion and an 18-gauge IV was inserted in the holding area. We brought the 18-gauge IV and inserted a 6-Iraqi Slender sheath in the right antecubital area without any complications. Right heart catheterization was performed using a Rosston-Cindy catheter. Once right heart catheterization was completed, a 6-Iraqi Slender sheath was inserted in the right radial artery using modified Seldinger technique. Coronary angiography was performed using 5-Iraqi Alexandra radial catheter to engage both the left and the right coronary systems. All catheters were removed over a wire. Access site was closed using a TR band device. SIGNIFICANT FINDINGS: Right dominant coronary systems, no significant CAD. Right heart catheterization with pressures as below. Right atrial pressure 12. Right ventricular pressure, mean pressure of 38, pulmonary artery pressure 41/14/24, pulmonary capillary wedge pressure 18, Godfrey cardiac output 4.6, cardiac index 2.26. Left heart catheterization with LVEDP of 12. No gradient across the aortic valve. GRAFTS AND IMPLANTS: None. SPECIMEN REMOVED: None. ESTIMATED BLOOD LOSS: 10 mL. COMPLICATIONS: None. FINAL RECOMMENDATIONS: 1. Normal coronary angiography with no secondary CAD. 2. Normal right heart catheterization. 3. Follow up in clinic 2 weeks post procedure. William Lamar MD KVP/MODL /[id number]
== END 2019-04-02 18:00 | disposition home or self-care (01) ==
LOC: ER 16:20 → ERHOLD 18:49 → MED/SURG2 20:37
PROVIDERS: ADMIT Internal Medicine; ATTEND Internal Medicine
DX: J20.9 Acute bronchitis, unspecified (principal); J45.909 Unspecified asthma, uncomplicated; E11.9 Type 2 diabetes mellitus without complications; I25.10 Atherosclerotic heart disease of native coronary artery without angina pectoris; Z72.0 Tobacco use; Z91.013 Allergy to seafood; Z91.048 Other nonmedicinal substance allergy status; R07.9 Chest pain, unspecified; I50.32 Chronic diastolic (congestive) heart failure; I11.0 Hypertensive heart disease with heart failure; Z79.4 Long term (current) use of insulin
CPT/HCPCS: 36415; 71046; 71250; 78582; 80048; 80053; 80307; 81001; 82550; 82553; 82948; 83605; 83880; 84484; 85025; 85610; 85730; 87040; 87400; 93005; 93306; 93460; 94640; 94664; 99284; C1751; C1769; C1887; G0378; J0456; J0696; J1200; J1815; J1940; J2001; J2250; J2270; J2405; J2930; J3010; J7030; J7050; Q9967

== ENCOUNTER 2019-11-14 18:48 | Emergency (ER) | payer OTHER ==
[~2019-11-14] VITALS: Ht 162.6 cm; Wt 96.6 kg
[~2019-11-14 18:48] MED LIST changes: +AMLODIPINE BESYL5 MG PO; +ATORVASTATIN CA20 MG PO; +BISOPROLOL-HCT1 EAC1 PO; +BUTALB-ACETAMI1 EACH PO; +CLOPIDOGREL75 MG PO; +DICYCLOMINE HCL20 MG PO; +ESCITALOPRAM OX20 MG PO; +Folic acid PO; +GRALISE600 MG PO; +MELOXICAM7.5 MG PO; +METAXALONE400 MG PO; +NEPHRO-VITE TABL1 EA PO; +NOVOLOG MI100 UNIT/1 SC; +OLMESARTAN-HCT1 EACH PO; +PREDNISONE20 MG PO; +SUCRALFATE1 GM PO; +TIZANIDINE HCL4 MG PO; +TRESIBA FL100 UNIT/1 SC; +TRESIBA100 UNIT/1 SC; +ceftin PO
--- NOTE | 2019-11-14 19:09 | Emergency Department Note ---
History of Present Illnes History of Present Illness Chief Complaint: General Medicine Complaints History of Present Illness This is a 59 year old female with lesion on her R forehead yestsrday which was TTP. States that the lesion size subsided but it radiates down her R cheeck and R eyelid region . Denies systemic signs of illness. Historian: Patient Arrival Mode: Car Onset (how long ago): day(s) (1) Radiation: Reports non-radiation Severity: mild Onset quality: gradual Progression: partially resolved Context: Denies recent illness, Denies recent surgery, Denies recent immobilization, Denies recent travel, Denies trauma/injury, Denies new medications, Denies hx of DVT/PE, Denies non-compliance w/ medications, Denies other Relieving factors: none Exacerbating factors: other (palpation) Associated symptoms: Denies denies other symptoms, Denies confusion, Denies chest pain, Denies cough, Denies diaphoresis, Denies fever/chills, Denies head aches, Denies loss of appetite, Denies malaise, Denies nausea/vomiting, Denies rash, Denies seizure, Denies shortness of breath, Denies syncope, Denies weakness, Denies other Past Medical/Family History Physician Review I have reviewed the patient's past medical and family history. Any updates have been documented here. Past Medical History Past Medical History: Hypertension, Diabetes, TIA, Asthma, Hyperlipedemia, Chronic Kidney Disease, Chronic Back Pain Other Medical History: IBS neuropathy fibromyalgia diverticulosis spinal stenosis bilateral carpal tunnel Past Surgical History: Cholecysctectomy, Hysterectomy, Knee Replacement Other Surgery: Left knee replacement Social History Alcohol Use: None Any Illegal Drug Use: No Other Last Tetanus: UTD Review of Systems Review of Systems Constitutional: Reports no symptoms EENTM: Reports no symptoms, Reports other (denies diplopia) Cardiovascular: Reports no symptoms Respiratory: Reports no symptoms Gastrointestinal: Reports no symptoms Genitourinary: Reports no symptoms Musculoskeletal: Reports no symptoms Integumentary: Reports change in color Neurological: Reports no symptoms Psychological: Reports no symptoms Endocrine: Reports no symptoms Hematological/Lymphatic: Reports no symptoms Physical Exam Related Data Allergies: Coded Allergies: iodine (Verified Allergy, Severe, AIRWAY CLOSED,SWELLING AROUND MOUTH, 03/31/19) shellfish derived (Verified Allergy, Severe, AIRWAY CLOSED, SWELLING AROUND MOUTH, 03/31/19) Vital signs reviewed: Yes Physical Exam CONSTITUTIONAL Constitutional: Present well-developed, Present well-nourished HENT HENT: Present normocephalic, Present atraumatic, Present oropharynx clear/moist, Present nose normal HENT L/R: Present left ext ear normal, Present right ext ear normal EYES Eyes: Reports PERRL, Reports conjunctivae normal NECK Neck: Present ROM normal PULMONARY Pulmonary: Present effort normal, Present breath sounds normal CARDIOVASCULAR Cardiovascular: Present regular rhythm, Present heart sounds normal, Present capillary refill normal, Present normal rate GASTROINTESTINAL Abdominal: Present soft, Present nontender, Present bowel sounds normal GENITOURINARY Genitourinary: Present exam deferred SKIN Skin: Present other (subtle edema R supraorbital lateral region. Edema of the lateral aspect left upper lid) MUSCULOSKELETAL Musculoskeletal: Present ROM normal NEUROLOGICAL Neurological: Present alert, Present oriented x 3, Present no gross motor or sensory deficits PSYCHOLOGICAL Psychological: Present mood/affect normal, Present judgement normal Assessment & Plan Medical Decision Making MDM Diff Dx : periorbital celluitis, orbital cellulitis, Stye, facial abscess Assessment & Plan Final Impression: (1) Blepharitis (2) Cellulitis of forehead Depart Disposition: HOME, SELF-USP Meds Reported Medications [ceftin] No Conflict Check, 500 MG PO BID, #10 04/02/19 Prednisone (PREDNISONE) 20 Mg Tab, 40 MG PO DAILY for 5 Days, TAB 04/02/19 Insulin Degludec (Tresiba Flextouch U-100) 100 Unit/1 Ml Insuln.pen, 60 UNITS SC DAILY 04/01/19 [Folic acid] No Conflict Check, 1 MG PO BID 03/31/19 Butalb/Acetaminophen/Caffeine (BQZGKT-[id number]-BBDQ 50-325-40) 1 Each Tablet, 1 TAB PO Q4HR 03/31/19 Meloxicam (MELOXICAM) 7.5 Mg Tablet, 15 MG PO DAILY, #30 TAB 03/31/19 Sucralfate (SUCRALFATE) 1 Gm Tablet, 1 GM PO TID, TAB 03/31/19 Amlodipine Besylate (AMLODIPINE BESYLATE) 5 Mg Tablet, 5 MG PO DAILY, #30 TAB 03/31/19 Clopidogrel Bisulfate (CLOPIDOGREL) 75 Mg Tablet, 75 MG PO DAILY, #30 TAB 03/31/19 Atorvastatin Calcium (ATORVASTATIN CALCIUM) 20 Mg Tablet, 40 MG PO HS, #30 TAB 03/31/19 Gabapentin (GRALISE) 600 Mg Tab.er.24h, 600 MG PO TID 03/31/19 Tizanidine Hcl (TIZANIDINE HCL) 4 Mg Tablet, 4 MG PO TID, TAB 03/31/19 Metaxalone (Metaxalone) 400 Mg Tablet, 800 MG PO QID 03/31/19 Insuln Asp Prt/Insulin Aspart (NOVOLOG MIX 70-30 FLEXPEN SYRN) 100 Unit/1 Ml Insuln.pen, 16 UNITS SC TID 03/31/19 Escitalopram Oxalate (ESCITALOPRAM OXALATE) 20 Mg Tablet, 20 MG PO DAILY 03/31/19 Dicyclomine Hcl (DICYCLOMINE HCL) 20 Mg Tablet, 20 MG PO QID, TAB 03/31/19 Potassium Chloride (POTASSIUM CHLORIDE) 20 Meq Tab.er.prt, 20 MEQ PO BID 02/06/17 Ondansetron (ZOFRAN ODT) 4 Mg Tab.rapdis, 4 MG PO Q6H PRN for NAUSEA AND VOMITING, TAB 09/03/16 Hydrocodone Bit/Acetaminophen (NORCO 10-325 TABLET) 1 Each Tablet, 1 TAB PO PRN 09/03/16 Pantoprazole Sodium* (PROTONIX) 40 Mg Tablet.dr, 1 PO DAILY, #30 TAB TAKE ONE PILL BY MOUTH EVERY MORNING WITH MEALS 05/11/14 ELLE FABIAN DO Nov 14, 2019 19:09
--- OUTSIDE RECORDS SUMMARY | 2019-11-14 19:15 | XMS REPORT | Continuity of Care Document ---
Author Author [employer], STEPHEN SHETH Organization [employer] Address Unknown Phone Unavailable Care Team Providers Care Baseball [employer] Manager Name Role Phone [employer] Unavailable Un available Problems Problem Status Onset Date Classification Date Reported Comments Source Obesity Active Problem 08/10/2016 Mohamed Romain Martinez Exertional dyspnea Active Problem 08/10/2016 Mohabigail Martinez Former smoker Active Problem 08/10/2016 Mohabigail Martinez Palpitations Active Diagnosis 08/10/2016 Sebas Martinez Type 2 diabetes mellitus with complication Active Problem 08/10/2016 Sebas Martinez Diverticulitis Active Problem 08/10/2016 Sebas Martinez Encounter for pre-operative cardiovascular clearance Active Problem 08/10/2016 Mohabigail Martinez Coronary atherosclerosis of ramona coronary artery Active Problem 08/10/2016 Mohamed O Michelle Hypertension Active Problem 08/10/2016 Mohamed Romain Martinez Dizziness Active Problem 08/10/2016 Wadeamed Romain Martinez Medications Medication Details Route Status Patient Instructions Ordering Provider Order Date Source Metoprolol Tartrate 1 tablet Orally Active 25 MG Orally Twice a day Michelle Martinez Allergies, Adverse Reactions, Alerts No Known Medication Allergies Immunizations No Data Provided for This Section Results No Data Provided for This Section Pathology Reports No Data Provided for This Section Diagnostic Reports No Data Provided for This Section Consultation Notes No Data Provided for This Section Discharge Summaries No Data Provided for This Section History and Physicals No Data Provided for This Section Vital Signs No Data Provided for This Section Encounters No Data Provided for This Section Procedures No Data Provided for This Section Assessment and Plan No Data Provided for This Section Plan of Care No Data Provided for This Section Social History No Data Provided for This Section Family History No Data Provided for This Section Advance Directives No Data Provided for This Section Functional Status No Data Provided for This Section
--- OUTSIDE RECORDS SUMMARY | 2019-11-14 19:16 | XMS REPORT | Continuity of Care Document ---
Author Author [facility] t Organization [facility] Address [address] [place] [address] Phone Unavailable Care Team Providers Care Foil Wrapper Name Role Phone LESLIE ISIDRO MD PCP LESLIE ISIDRO Attphys Unavailable TAMARA ROBERTS Attphys Unavailable Modesto CHOU Attphys Unavailable Juany ROUSE Attphys Unavailable LESLIE ISIDRO Admphys Unavailable Payers Payer Name Policy Type Policy Number Effective Date Expiration Date [id number] 2017 [facility]00 [facility] [id number] 2011 00:00 :00 [facility] Problems Condition Name Condition Details Condition Category Status Onset Date Resolution Date Last Treatment Date Treating Clinician Comments Source Dehydration Dehydration Problem Active 2013-12-23 00:00:00 [facility] Pancreatitis Pancreatitis Problem Active 2013-12-23 00:00:00 [facility] Obesity Obes ity Active Problem 08/10/2016 Sebas Martinez Problem Active 2016-08-10 02:45:07 Johnny Ramirez Exertional dyspnea Exer tional dyspnea Active Problem 08/10/2016 Sebas Martinez Problem Active 2016-08-10 02:45:07 Willi Ramirez Former smoker Form er smoker Active Problem 08/10/2016 Sebas Martinez Problem [facility] 2016[facility]08[facility]10 [facility] Palpitations Palp itations Active Diagnosis 08/10/2016 Sebas Martinez Diagnosis Active 2016-08-10 02:45:07 [facility] Type 2 diabetes mellitus with complication Type 2 diabetes mellitus with complication Active Problem 08/10/2016 Sebas Martinez Problem Active 2016-08-10 02:45:07 [facility] Diverticulitis Dive rticulitis Active Problem 08/10/2016 Sebas Martinez Problem Active 2016-08-10 02:45:07 [facility] Encounter for pre-operative cardiovascular clearance Encounter for pre-operative cardiovascular clearance Active Problem 08/10/2016 Sebas Martinez Problem Active 2016-08-10 02:45:07 [facility] Coronary atherosclerosis of [place] coronary artery Coronary atherosclerosis of [place] coronary artery Active Problem 08/10/2016 Sebas Martinez Problem Active 2016-08-10 02:45:07 [facility] Hypertension Hype rtension Active Problem 08/10/2016 Sebas Martinez Problem Active 2016-08-10 02:45:07 [facility] Dizziness Dizz iness Active Problem 08/10/2016 Sebas Martinez Problem Active 2016-08-10 02:45:07 [facility] Allergies, Adverse Reactions, Alerts Allergy Name Allergy Type Status Severity Reaction(s) Onset Date Inacti ve Date Treating Clinician Comments Source iodine Allergy to Substance Active Severe AIRWAY CLOSED,S WELLING AROUND MOUTH 2019-03-31 00:00:00 [facility] shellfish derived Allergy to Substance Active Severe AI RWAY CLOSED, SWELLING AROUND MOUTH 2019-03-31 00:00:00 [facility] Shellfish DA Active SV 2018-07-12 00:00:00 [facility] iodine DA Active SV 2018-07-12 00:00:00 [facility] Shellfish DA Active SV 2014-10-17 00:00:00 [facility] iodine DA Active SV 2014-10-17 00:00:00 [facility] Medications Ordered Medication Name Filled Medication Name Start Date Stop Da te Current Medication? Ordering Clinician Indication Dosage Frequency Signature (SIG) Comments Components Source Metoprolol Tartrate 2016-08-10 02:45:07 Yes Sebas Gaffneylunaerlin 1 tablet [facility] Amlodipine Besylate 5 Mg Tablet Amlodipine Besylate 5 Mg Tablet Yes 5 Daily [facility] Atorvastatin Calcium 20 Mg Tablet Atorvastatin Calcium 20 Mg Tablet Yes 40 Bedtime [facility] Butalb/Acetaminophen/Caffeine (Wakyhl-Xqacbyzi-Xhlx 50 -325-40) 1 Each Tablet Butalb/Acetaminophen/Caffeine (Ydemzi-Arxxpgxr-Dzry 50-325-40) 1 Each Tablet Yes 1 Every 4 Hours [facility] Ceftin Ceftin Yes 500 Twice A Day [facility] Clopidogrel Bisulfate (Clopidogrel) 75 Mg Tablet Clopi dogrel Bisulfate (Clopidogrel) 75 Mg Tablet Yes 75 Daily [facility] Dicyclomine Hcl 20 Mg Tablet Dicyclomine Hcl 20 Mg Tablet Y es 20 Four Times Daily [facility] Escitalopram Oxalate 20 Mg Tablet Escitalopram Oxalate 20 Mg Tablet Yes 20 Daily [facility] Folic Acid Folic Acid Yes 1 Twice A Day [facility] Gabapentin (Gralise) 600 Mg Tab.er.24h Gabapentin (Gralise) 600 Mg Tab.er.24h Yes 600 Three Times A Day [facility] Hydrocodone Bit/Acetaminophen ([place] 10-325 Tablet) 1 Each Tablet Hydrocodone Bit/Acetaminophen ([place] 10-325 Tablet) 1 Each Tablet Yes 1 As Needed [facility] Insulin Degludec (Tresiba Flextouch U-100) 100 Unit/1 Ml Insuln.pen Insulin Degludec (Tresiba Flextouch U-100) 100 Unit/1 Ml Insuln.pen Yes 60 Daily [facility] Insuln Asp Prt/Insulin Aspart (Novolog M ix 70-30 Flexpen Syrn) 100 Unit/1 Ml Insuln.pen Insuln Asp Prt/Insulin Aspart (Novolog M ix 70-30 Flexpen Syrn) 100 Unit/1 Ml Insuln.pen Yes 16 Three Times A Day [facility] Meloxicam 7.5 Mg Tablet Meloxicam 7.5 Mg Tablet Yes 15 Daily [facility] Metaxalone 400 Mg Tablet Metaxalone 400 Mg Tablet Yes 800 Four Times Daily [facility] Ondansetron (Zofran Odt) 4 Mg Tab.rapdis Ondansetron ( Zofran Odt) 4 Mg Tab.rapdis Yes 4 Every 6 Hours as needed for Nausea And Vomiting [facility] Pantoprazole Sodium (Protonix) 40 Mg Tablet. Pantopr azole Sodium (Protonix) 40 Mg Tablet. Yes 1 Daily [facility] Potassium Chloride 20 Meq Tab.er.prt Potassium Chloride 20 Meq Tab. er.prt Yes 20 Twice A Day [facility] Prednisone 20 Mg Tab Prednisone 20 Mg Tab Yes 40 Daily [facility] Sucralfate 1 Gm Tablet Sucralfate 1 Gm Tablet Yes 1 Three Times A Day [facility] Tizanidine Hcl 4 Mg Tablet Tizanidine Hcl 4 Mg Tablet Yes 4 Three Times A Day [facility] Bisoprolol Fumarate/Hctz (Bisoprolol-Hct z 5-6.25 Mg Tab) 1 Each Tablet, 1 Tab Oral Bisoprolol Fumarate/Hctz (Bisoprolol-Hct z 5-6.25 Mg Tab) 1 Each Tablet, 1 Tab Oral 2019-04-01 00:00:00 No 1 Daily [facility] Hydrochlorothiazide 25 Mg Tablet, 25 Mg Oral Hydrochlo rothiazide 25 Mg Tablet, 25 Mg Oral 2019-04-01 00:00:00 No 25 Twice A Day [facility] Insulin Degludec (Tresiba) 100 Unit/1 Ml Vial, 60 Unit s Subcutaneously Insulin Degludec (Tresiba) 100 Unit/1 Ml Vial, 60 Units Subcutaneously 2019-04-01 00:00:00 No 60 Daily [facility] Olmesartan/Hydrochlorothiazide (Olmesart an-Hctz 20-12.5 Mg Tab) 1 Each Tablet, 1 Tab Oral Olmesartan/Hydrochlorothiazide (Olmesart an-Hctz 20-12.5 Mg Tab) 1 Each Tablet, 1 Tab Oral 2019-04-01 00:00:00 No 1 Daily [facility] Dicyclomine Hcl (Bentyl) 10 Mg Capsule, 1 Oral Dicycl omine Hcl (Bentyl) 10 Mg Capsule, 1 Oral 2019-03-31 00:00:00 No 1 Daily [facility] Escitalopram Oxalate (Lexapro) 10 Mg Tablet, 25 Mg Ora l Escitalopram Oxalate (Lexapro) 10 Mg Tablet, 25 Mg Oral 2019-03-31 00:00:00 No 25 Twice A Day [facility] Folic Acid/Cyanocob/Pyridoxine (Nephro-Greyson Tablet) 1 Ea Tab, 1 Each Oral Folic Acid/Cyanocob/Pyridoxine (Nephro-Greyson Tablet) 1 Ea Tab, 1 Each Oral 2019-03-31 00:00:00 No 1 Twice A Day [facility] Gabapentin 400 Mg Capsule, 600 Mg Oral Gabapentin 400 Mg Capsule , 600 Mg Oral 2019-03-31 00:00:00 No 600 Three Times A Day [facility] Insulin , Unknown Dose Sub-Q Insulin , Unknown Dose Sub-Q 2019-03-31 00:00:00 No Before Meals [facility] Losartan Potassium 25 Mg Tablet, 12.5 Mg Oral Losartan Potassium 25 Mg Tablet, 12.5 Mg Oral 2019-03-31 00:00:00 No 12.5 Daily [facility] Metoprolol Succinate 25 Mg Tab.er.24h, 25 Mg Oral Meto prolol Succinate 25 Mg Tab.er.24h, 25 Mg Oral 2019-03-31 00:00:00 No 25 T wice A Day [facility] Simvastatin 10 Mg Tablet, 10 Mg Oral Simvastatin 10 Mg Tablet, 1 0 Mg Oral 2019-03-31 00:00:00 No 10 Bedtime [facility] Trazodone Hcl 50 Mg Tablet, 150 Mg Oral Trazodone Hcl 50 Mg Tablet, 150 Mg Oral 2019-03-31 00:00:00 No 150 Bedtime [facility] Tresiba , 40 Units Subcutaneously Tresiba , 40 Units Subcutaneou sly 2019-03-31 00:00:00 No 40 Daily [facility] Clonazepam 0.5 Mg Tab.rapdis, 0.5 Mg Oral Clonazepam 0 .5 Mg Tab.rapdis, 0.5 Mg Oral 2019-02-12 00:00:00 No .5 Daily [facility] Zolpidem Tartrate (Ambien) 10 Mg Tablet, 10 Mg Oral Zo lpidem Tartrate (Ambien) 10 Mg Tablet, 10 Mg Oral 2019-02-12 00:00:00 No 10 Bedtime [facility] Tresira , 40 Mg Oral Tresira , 40 Mg Oral 2017-02-07 00:00:00 No 40 Daily [facility] Hydrocodone Bit/Acetaminophen ([place] 7.5-325 Tablet) 1 Each Tablet, 1 Ea Oral Hydrocodone Bit/Acetaminophen ([place] 7.5-325 Tablet) 1 Each Tablet, 1 Ea Oral 2016-09-03 00:00:00 No 1 Four Times Daily [facility] Insulin Glargine (Lantus) 100 Units/Ml Ml, 40 Units In jection Insulin Glargine (Lantus) 100 Units/Ml Ml, 40 Units Injection 2016-09-03 00:00:00 No 40 Bedtime [facility] Pregabalin (Lyrica) 25 Mg Cap, 25 Mg Oral Pregabalin ( Lyrica) 25 Mg Cap, 25 Mg Oral 2016-09-03 00:00:00 No 25 Twice A Day [facility] Metformin Hcl (Metformin Hcl Er) 1,000 Mg Tab.er.24, 1 000 Mg Oral Metformin Hcl (Metformin Hcl Er) 1,000 Mg Tab.er.24, 1000 Mg Oral 2016-01-09 00:0 0:00 No 1000 Twice A Day [facility] Aspirin 81 Mg Tab.chew, 81 Mg Oral Aspirin 81 Mg Tab.chew, 81 Mg Oral 2015-03-28 00:00:00 No 81 Daily [facility] Lisinopril 10 Mg Tablet, 20 Mg Oral Lisinopril 10 Mg Tablet, 20 Mg Oral 2014-11-02 00:00:00 No 20 Daily [facility] Amlodipine Besylate (Norvasc) 10 Mg Tab, 10 Mg Oral Am lodipine Besylate (Norvasc) 10 Mg Tab, 10 Mg Oral 2013-12-23 00:00:00 No 10 Daily [facility] Procedures Procedure Date / Time Performed Performing Clinician Sour e Computed tomography of chest without contrast 2019-04-01 00: 00:00 PHILLY CONTE [facility] X-ray of chest, two views 2019-03-31 00:00:00 ELLE FABIAN [facility] Magnetic resonance imaging of cervical spine without c ontrast 2019-03-18 00:00:00 TAMARA ROBERTS [facility] EGD BIOPSY SINGLE/MULTIPLE 2019-02-19 00:00:00 JAMAL CONNELL [facility] DILATE ESOPHAGUS 1/MULT PASS 2019-02-19 00:00:00 JAMAL CONNELL [facility] COLONOSCOPY W/LESION REMOVAL 2019-02-19 00:00:00 JAMAL CONNELL [facility] Encounters Start Date/Time End Date/Time Encounter Type Admission Type [facility] Care Department Encounter ID Source 2019-03-31 18:49:00 2019-04-02 18:00:00 Discharged Inpatient (obs) 1 LESLIE ISIDRO [facility] [id number] [facility] 2019-03-18 08:13:00 2019-03-18 08:13:00 Registered Clinic 3 YOBANI [facility] [id number] [facility] 2019-02-19 07:23:00 2019-02-19 07:23:00 Registered Surgical Day Care [facility] [id number] [facility] 2018-11-30 16:53:00 2018-11-30 16:53:00 Outpatient E [facility] MED [id number] [facility] 2018-03-30 16:06:00 2018-03-30 23:55:00 Departed Emergency Room 1 LIBBY CHOU [facility] [id number] [facility] 2017-10-20 13:50:00 2017-10-20 13:50:00 Registered Clinic 3 SANNA [facility] [id number] [facility] 2017-09-22 17:57:00 2017-09-22 17:57:00 Registered Clinic 3 SANNA [facility] [id number] [facility] 2017-08-26 20:35:00 2017-08-27 00:22:00 Departed Emergency Room 1 JONES ROUSE [facility] [id number] [facility] 2017-02-07 11:12:00 2017-02-07 11:12:00 Registered Surgical Day Care [facility] [id number] [facility] 2016-11-07 12:54:00 2016-11-07 12:54:00 Registered Clinic EL SANNA [facility] [id number] [facility] 2016-08-09 14:09:00 2016-08-09 14:09:00 Outpatient Sebas Martinez MD [place] [id number] [employer] Results Test Description Test Time Test Comments Results Result Comments Source Blood Culture 2019-04-02 18:08:00 Test Item Blood Culture (test code = 10277374) NO GROWTH AFTER 48 HOURS [facility] [id number] 08:28:00* Test Item Value Reference Range Interpretation Comments Bedside Glucose (test code = 75232-0) 148 70-120 H Meter ID: [id number] Healthcare Systemodium Level 2019-04-02 07:36:00* Test Item Value Reference Range Interpretation Comments Sodium Level (test code = 2951-2) 141 136-145 [facility]Potassium [id number] 07:36:00* Test Item Value Reference Range Interpretation Comments Potassium Level (test code = 2823-3) 3.7 3.5-5.1 [facility] HospitalChloride Uspno5438-86-22 07:36:00* Test Item Value Reference Range Interpretation Comments Chloride Level (test code = 2075-0) 108 98-107 H [facility] HospitalCarbon Dioxide Hareu2274-35-21 07:36:00* Test Item Value Reference Range Interpretation Comments Carbon Dioxide Level (test code = 2028-9) 25 22-29 [facility] HospitalAnion [id number] 07:36:00* Test Item Value Reference Range Interpretation Comments Anion Gap (test code = 32819-6) 11.7 8-16 [facility] HospitalBlood Urea Ybjfnexe7109-54-57 07:36:00* Test Item Value Reference Range Interpretation Comments Blood Urea Nitrogen (test code = 3094-0) 15 7-26 [facility] HospitalCreatinine2020-02-21 07:36:00* Test Item Value Reference Range Interpretation Comments Creatinine (test code = 2160-0) 0.73 0.57-1.11 [facility] HospitalBUN/Creatinine Yvtpm6223-12-14 07:36:00* Test Item Value Reference Range Interpretation Comments BUN/Creatinine Ratio (test code = 3097-3) 21 6- [facility] HospitalEstimat Glomerular Filtration Rate 2019-04-02 07:36:00* Test Item Value Reference Range Interpretation Comments Estimat Glomerular Filtration Rate (test code = 905063992) > 60 >60 Ranges were taken from the National Kidney Disease Education Program and the [facility] [employer] literature.Reference ranges:60 or greater: Rmovfx84-61 ( for 3 consecutive months): Chronic kidney disease 15 or less: Kidney failureFormerly [facility] HospitalGlucose Eibto1404-38-83 07:36:00* Test Item Value Reference Range Interpretation Comments Glucose Level (test code = ERS0676) 108 74-118 [facility] HospitalCalcium Qpbos7677-42-65 07:36:00* Test Item Value Reference Range Interpretation Comments Calcium Level (test code = 89626-4) 9.2 8.4-10.2 [facility] HospitalWhite Blood Qyqva5587-24-34 07:22:00* Test Item Value Reference Range Interpretation Comments White Blood Count (test code = 6690-2) 10.93 4.8-10.8 H [facility] HospitalRed Blood Yuuqb0190-29-04 07:22:00* Test Item Value Reference Range Interpretation Comments Red Blood Count (test code = 789-8) 3.83 3.6-5.1 [facility] HospitalHemoglobin2020-02-21 07:22:00* Test Item Value Reference Range Interpretation Comments Hemoglobin (test code = 11079-6) 11.8 12.0-16.0 L [facility] HospitalHematocrit2020-02-21 07:22:00* Test Item Value Reference Range Interpretation Comments Hematocrit (test code = 4544-3) 36.0 34.2-44.1 [facility] HospitalMean Corpuscular Acscxh0784-17-11 07:22:00* Test Item Value Reference Range Interpretation Comments Mean Corpuscular Volume (test code = 787-2) 94.0 81-99 [facility] HospitalMean Corpuscular Ippuuabnan7319-48-37 07:22:00* Test Item Value Reference Range Interpretation Comments Mean Corpuscular Hemoglobin (test code = 785-6) 30.8 28-32 [facility] HospitalMean Corpuscular Hemoglobin Concent 2019-04-02 07:22:00* Test Item Value Reference Range Interpretation Comments Mean Corpuscular Hemoglobin Concent (test code = 786-4) 32.8 31-35 [facility] HospitalRed Cell Distribution Kyutf9689-04-57 07:22:00* Test Item Value Reference Range Interpretation Comments Red Cell Distribution Width (test code = 71008-1) 12.5 11.7 -14.4 [facility] HospitalPlatelet Vzhua6366-21-54 07:22:00* Test Item Value Reference Range Interpretation Comments Platelet Count (test code = 777-3) 315 140-360 [facility] HospitalNeutrophils (%) (Auto)2019-04-02 07:22:00 * Test Item Value Reference Range Interpretation Comments Neutrophils (%) (Auto) (test code = 90362-0) 57.2 38.7-80.0 [facility] HospitalLymphocytes (%) (Auto)2019-04-02 07:22:00 * Test Item Value Reference Range Interpretation Comments Lymphocytes (%) (Auto) (test code = 736-9) 32.7 18.0-39.1 [facility] HospitalMonocytes (%) (Auto)2019-04-02 07:22:00* Test Item Value Reference Range Interpretation Comments Monocytes (%) (Auto) (test code = 5905-5) 6.8 4.4-11.3 [facility] HospitalEosinophils (%) (Auto)2019-04-02 07:22:00 * Test Item Value Reference Range Interpretation Comments Eosinophils (%) (Auto) (test code = 713-8) 1.7 0.0-6.0 [facility] HospitalBasophils (%) (Auto)2019-04-02 07:22:00* Test Item Value Reference Range Interpretation Comments Basophils (%) (Auto) (test code = 706-2) 1.2 0.0-1.0 H [facility] HospitalIM GRANULOCYTES %2019-04-02 07:22:00* Test Item Value Reference Range Interpretation Comments IM GRANULOCYTES % (test code = IM GRANULOCYTES %) 0.4 0.0- 1.0 [facility] HospitalNeutrophils # (Auto)2019-04-02 07:22:00* Test Item Value Reference Range Interpretation Comments Neutrophils # (Auto) (test code = 751-8) 6.3 2.1-6.9 [facility] HospitalLymphocytes # (Auto)2019-04-02 07:22:00* Test Item Value Reference Range Interpretation Comments Lymphocytes # (Auto) (test code = 58210-7) 3.6 1.0-3.2 H [facility] HospitalMonocytes # (Auto)2019-04-02 07:22:00* Test Item Value Reference Range Interpretation Comments Monocytes # (Auto) (test code = 742-7) 0.7 0.2-0.8 [facility] HospitalEosinophils # (Auto)2019-04-02 07:22:00* Test Item Value Reference Range Interpretation Comments Eosinophils # (Auto) (test code = 711-2) 0.2 0.0-0.4 [facility] HospitalBasophils # (Auto)2019-04-02 07:22:00* Test Item Value Reference Range Interpretation Comments Basophils # (Auto) (test code = 704-7) 0.1 0.0-0.1 [facility] HospitalAbsolute Immature Granulocyte (auto 2019-04-02 07:22:00* Test Item Value Reference Range Interpretation Comments Absolute Immature Granulocyte (auto (lucía t code = Absolute Immature Granulocyte (auto) 0.04 0-0.1 [facility] HospitalCT CHEST [id number] 16:21:00 [place] [address] Patient Name: STEPHEN MUKHERJEE MR #: [id number] : 1960 Age/Sex: 59/F Req #: [id number] Adm Physician: LESLIE ISIDRO MD Ordered by: PHILLY CONTE MD Report #: [id number] [facility] Room/Bed: [facility] Procedure: [id number] CT /CT CHEST WO Exam Date: Exam Time: REPORT STATUS: Signed Exam: CT chest Clini tyesha history: Shortness of breath Technique: Helical images of the chest wer e obtained without contrast DOSE REDUCTION: The exams was performed accord ing to the departmental dose-optimization program which includes automated exp osure control, adjustment of the mA and/or kV according to patient size and/or use of iterative reconstruction technique. Findings: There is no evidence of only consolidation, edema, nodule, interstitial disease, or pneumothorax. The tracheobronchial tree is clear. The cardiac size is within normal limits. The great vessels are normal in caliber and configuration. There is no eviden ce of mediastinal or hilar lymphadenopathy. The visualized upper abdomina l solid organs are unremarkable. Impression: 1. Status post cholecyste ctomy. Otherwise, unremarkable CT of chest. Signed by: Dr. Chino Thorne MD on 04/01/2019 4:24 PM Dictated By: JENNIFER THORNE MD Electronically Carley d By: JENNIFER THORNE MD on 04/01/19 1624 Transcribed By: SAEID on 04/01/19 16 24 COPY TO: PHILLY CONTE MD Creatine Kinase [id number] 06:32:00* Test Item Value Reference Range Interpretation Comments Creatine Kinase MB (test code = 77383-7) 1.30 0-5.0 [facility] HospitalTroponin [id number] 06:32:00* Test Item Value Reference Range Interpretation Comments Troponin I (test code = SQY0613) < 0.001 0-0.300 [facility] HospitalCreatine Fbtooa1637-72-35 06:22:00* Test Item Value Reference Range Interpretation Comments Creatine Kinase (test code = 2157-6) 85 29-168 [facility] HospitalTotal Wgwmujbvk4770-01-20 06:11:00* Test Item Value Reference Range Interpretation Comments Total Bilirubin (test code = 1975-2) 0.2 0.2-1.2 [facility] HospitalAspartate Amino Transf (AST/SGOT) 2019-04-01 06:11:00* Test Item Value Reference Range Interpretation Comments Aspartate Amino Transf (AST/SGOT) (test code = Aspartate Amino Transf (AST/SGOT)) 11 5-34 [facility] HospitalAlanine Aminotransferase (ALT/SGPT) 2019-04-01 06:11:00* Test Item Value Reference Range Interpretation Comments Alanine Aminotransferase (ALT/SGPT) (test code = 1742-6) 15 0-55 [facility] HospitalTotal Rdtemcb1150-44-89 06:11:00* Test Item Value Reference Range Interpretation Comments Total Protein (test code = 2885-2) 6.6 6.5-8.1 [facility] HospitalAlbumin2020-02-20 06:11:00* Test Item Value Reference Range Interpretation Comments Albumin (test code = 1751-7) 3.7 3.5-5.0 [facility] HospitalGlobulin2020-02-20 06:11:00* Test Item Value Reference Range Interpretation Comments Globulin (test code = 24993-3) 2.9 2.3-3.5 [facility] HospitalAlbumin/Globulin [id number] 06:11:00 * Test Item Value Reference Range Interpretation Comments Albumin/Globulin Ratio (test code = 1759-0) 1.3 0.8-2.0 [facility] HospitalAlkaline Uaubidllzcz1302-30-49 06:11:00* Test Item Value Reference Range Interpretation Comments Alkaline Phosphatase (test code = 6768-6) 88 40-150 [facility] HospitalLactic Acid Tnzqt0612-07-31 23:31:00* Test Item Value Reference Range Interpretation Comments Lactic Acid Level (test code = Lactic Acid Level) 0.8 0.5- 2.0 [facility] HospitalVQ LUNG SCAN VENT FNIKABXHO8607-31-52 22:17:00 [place] [address] Patient Name: STEPHEN MUKHERJEE MR #: [id number] : 1960 Age/Sex: 59/F Req #: [id number] Adm Physician: LESLIE ISIDRO MD Ordered by: LESLIE ISIDRO MD Report #: [id number] Location: [facility] Room/Bed: [facility] Procedure: [id number] NM /VQ LUNG SCAN VENT PERFUSION Exam Date: Exam Iam e: REPORT STATUS: Signed Ventil ation/perfusion lung scan Clinical Information: Shortness of breath, legs h eavy, headache Comparison: CXR single view Discussion: Xenon-133 gas 18 mCi was administered via inhalation. Dynamic images of the lungs in the po sterior projection were obtained through single breath, equilibrium, and washo ut phases. Distribution of tracer activity appears physiologic throughout the lungs.. There are no segmental ventilatory defects. Washout of tracer is no rmal with no evidence of air trapping. Perfusion images of the lungs were o btained in multiple projections following intravenous administration of approx imately 6 mCi of Tc-99m MAA. Distribution of tracer appears physiologic throug hout the lungs. The contours of the lungs are well demarcated. There are no segmental perfusion defects of any size. The cardiomediastinal silhouette i s unremarkable. Impression: Scan findings represent VERY LOW probabil ity for acute pulmonary embolic disease based on the PIOPED II criteria. Signed by: Dr. Raquel Stiles MD on 03/31/2019 10:19 PM Dictated By: Padmini STILES MD 18 Transcribed By: SAEID on 03/31/192218 COPY TO: LESLIE ISIDRO MD Urine Opiates [id number] 19:18:00* Test Item Value Reference Range Interpretation Comments Urine Opiates Screen (test code = 09162-9) NEGATIVE NEGATIVE ALL TESTS PERFORMED MANUALLY ON Prompt.ly TOX/SEE TESTFormerly [facility] HospitalUrine Barbiturates [id number] 19:18:00* Test Item Value Reference Range Interpretation Comments Urine Barbiturates Screen (test code = 336557762) NEGATIVE NEGA TIVE [facility] Phencyclidine [id number] 19:18:00* Test Item Value Reference Range Interpretation Comments Urine Phencyclidine Screen (test code = 90191-4) NEGATIVE NEGAT NATHALIE [facility] Amphetamines [id number] 19:18:00* Test Item Value Reference Range Interpretation Comments Urine Amphetamines Screen (test code = 82382-7) NEGATIVE NEGATI VE [facility] Methamphetamines [id number] 19:18:00* Test Item Value Reference Range Interpretation Comments Urine Methamphetamines Screen (test code = Urine Metha mphetamines Screen) NEGATIVE NEGATIVE [facility] Benzodiazepines [id number] 19:18:00* Test Item Value Reference Range Interpretation Comments Urine Benzodiazepines Screen (test code = 23906-3) NEGATIVE NEG ATIVE [facility] Cocaine [id number] 19:18:00* Test Item Value Reference Range Interpretation Comments Urine Cocaine Screen (test code = 3398-5) NEGATIVE NEGATIVE [facility] Cannabinoids [id number] 19:18:00* Test Item Value Reference Range Interpretation Comments Urine Cannabinoids Screen (test code = 23538-7) NEGATIVE NEGATI VE THESE RESULTS ARE FOR MEDICAL TREATMENT ONLYTHIS REPORT CONTAINS UNCONFIR MED SCREENING RESULTS*POSITIVE RESULTS WILL BE CONFIRMED BY REFERENCE LAB UPON R EQUEST CUT-OFFDRUG CLASS CONCENTRATION ng/mLAmphetamines 1000Methamphetamines 1000Cocaine 300Opiate 300Phencyc lidine 25Cannabinoid 50Barbiturates 300Benzodiazepine 300Methadone 300[facility] Center[facility] Methadone [id number] 19:18:00* Test Item Value Reference Range Interpretation Comments Urine Methadone Screen (test code = 05467-6) NEGATIVE NEGATIVE THESE RESULTS ARE FOR MEDICAL TREATMENT ONLYTHIS REPORT CONTAINS UNCONFIR MED SCREENING RESULTS*POSITIVE RESULTS WILL BE CONFIRMED BY REFERENCE LAB UPON R EQUEST CUT-OFFDRUG CLASS CONCENTRATION ng/mLAmphetamines 1000Methamphetamines 1000Cocaine Metabolite 300Opiate 300Phencyc lidine 25Cannabinoid 50Barbiturates 300Benzodiazepine 300Methadone 300[facility] CenterU[facility] [id number] 19:10:00* Test Item Value Reference Range Interpretation Comments Urine WBC (test code = 5821-4) NONE 0-5 [facility] [id number] 19:10:00* Test Item Value Reference Range Interpretation Comments Urine RBC (test code = 55623-2) 0-5 0-5 [facility] Exstognx2020-00-18 19:10:00* Test Item Value Reference Range Interpretation Comments Urine Bacteria (test code = 51001-3) NONE NONE [facility] Epithelial [id number] 19:10:00 * Test Item Value Reference Range Interpretation Comments Urine Epithelial Cells (test code = 51031-7) RARE NONE [facility] HospitalProthrombin [id number] 18:54:00* Test Item Value Reference Range Interpretation Comments Prothrombin Time (test code = 5902-2) 12.3 11.9-14.5 [facility] HospitalProthromb Time International Ratio 2019-03-31 18:54:00* Test Item Value Reference Range Interpretation Comments Prothromb Time International Ratio (test code = 6301-6) 0.87 Oral Anticoagulant Therapy INR Values:1. Low Intensity Therapy 1.5 - 2.02 . Moderate Intensity Therapy 2.0 - 3.03. High Intensity Therapy(1) 2.5 - 3. 54. High Intensity Therapy(2) 3.0 - 4.05. Panic Value INR > 5.0 [facility] HospitalActivated Partial Thromboplast Time 2019-03-31 18:54:00* Test Item Value Reference Range Interpretation Comments Activated Partial Thromboplast Time (test code = 77879-2) 26.2 23.8-35.5 [facility] HospitalUrine [id number] 18:34:00* Test Item Value Reference Range Interpretation Comments Urine Color (test code = 5778-6) YELLOW YELLOW [facility] Wpnrcng5716-26-47 18:34:00* Test Item Value Reference Range Interpretation Comments Urine Clarity (test code = 63400-2) CLEAR CLEAR [facility] HospitalUrine Specific Ityppkz4904-32-35 18:34:00 * Test Item Value Reference Range Interpretation Comments Urine Specific [place] (test code = 5811-5) 1.025 1.010-1.02 5 [facility] HospitalU[facility] [id number] 18:34:00* Test Item Value Reference Range Interpretation Comments Urine pH (test code = 73044-9) 7 5-7 [facility] Leukocyte Lareczlm6455-06-24 18:34:00* Test Item Value Reference Range Interpretation Comments Urine Leukocyte Esterase (test code = 5799-2) NEGATIVE NEGATIVE [facility] Fvefuar2687-86-65 18:34:00* Test Item Value Reference Range Interpretation Comments Urine Nitrite (test code = 10944-2) NEGATIVE NEGATIVE [facility] HospitalU[facility] Qrthwht3050-63-88 18:34:00* Test Item Value Reference Range Interpretation Comments Urine Protein (test code = 5804-0) NEGATIVE NEGATIVE [facility] Glucose (UA)2019-03-31 18:34:00* Test Item Value Reference Range Interpretation Comments Urine Glucose (UA) (test code = 2349-9) NEGATIVE NEGATIVE [facility] HospitalU[facility] Nuhiper1873-13-36 18:34:00* Test Item Value Reference Range Interpretation Comments Urine Ketones (test code = 87329-3) NEGATIVE NEGATIVE [facility] Memsaafuzqka4355-73-78 18:34:00* Test Item Value Reference Range Interpretation Comments Urine Urobilinogen (test code = 77662-2) 0.2 0.2-1 [facility] Cpfuskvou8942-64-17 18:34:00* Test Item Value Reference Range Interpretation Comments Urine Bilirubin (test code = 1978-6) NEGATIVE NEGATIVE [facility] Guisz3476-96-42 18:34:00* Test Item Value Reference Range Interpretation Comments Urine Blood (test code = 82044-8) TRACE NEGATIVE H [facility] HospitalInfluenza Virus Types A,B Antigen 2019-03-31 18:33:00* Test Item Value Reference Range Interpretation Comments Influenza Virus Types A,B Antigen (test code = 27699-9) NEGATIVE NEGATIVE [facility] HospitalB-Type Natriuretic Oehctlb9779-65-92 18:17:00* Test Item Value Reference Range Interpretation Comments B-Type Natriuretic Peptide (test code = 33202-1) 25.9 0-100 [facility] CenterCHES 2 [id number] 17:24:00 [place] [address] Patient Name: STEPHEN MUKHERJEE MR #: [id number] : 1960 Age/Sex: 59/F Req #: [id number] Adm Physician: Ordered by: ELLE FABIAN DO Report #: [id number] Location: ER Room/Bed: Procedure: [id number] DX/C HEST 2 VIEWS Exam Date: Exam Time: REPORT STATUS: Signed EXAM: CHEST 2 VIEWS DATE: 03/31/2019 4:34 PM INDICATION: Shortness of breath COMPARISON: None available. FINDINGS: The trachea is midline. The lungs are symmetr ically expanded without evidence for large focal consolidation, pneumothorax, or significant pleural effusion. The cardiomediastinal silhouette and pulmo nary vasculature are within normal limits. No acute osseous abnormality is osito ntified. The surrounding soft tissues are unremarkable. IMPRESSION: No acute cardiopulmonary process identified. Signed by: Dr. Rafiq Croft MD on 03/31/2019 5:25 PM Dictated By: RAFIQ CROFT MD Electronically Si gned By: RAFIQ CROFT MD on 03/31/19 3418 Transcribed By: SAEID on 03/31/19 1 725 COPY TO: ELLE FABIAN DO MRI SPINE CERVICAL [id number] 12:21:00 [place] [address] Patient Name: STEPHEN MUKHERJEE MR #: [id number] : 1960 Age/Sex: 59/F Req #: [id number] [facility] Physician: Ordered by: TAMARA ROBERTS MD Report #: [id number] Location: MRI Room/Bed: Procedure: [id number] MRI/M RI SPINE CERVICAL WO Exam Date: Exam Time: REPORT STATUS: Signed History: Cervical spondylosis, neck pain Comparison studies: Cervical spine MRI 04/22/2018 Technique: Sagittal T1, T2 and IR, axial T2 and axial gradient echo Intrav enous contrast: None Findings: Alignment: Mild reversal the usual cer vical lordosis at C5-C6. Cervicomedullary junction: No abnormalities. Pat ent foramen magnum. Soft tissues: No T2 hyperintense inflammatory changes. S yakelin cord: Normal in size and signal from the foramen magnum through T1. V ertebrae: No fractures, infection or neoplasm. Degenerative changes: The spinal canal is congenitally narrowed. C2-C3: Patent canal and for janet. C3-C4: Mildly degenerated disc. Small central disc protrusion inde nts the thecal sac and contributes to mild canal stenosis, unchanged. Patent f oramina. C4-C5: Mildly degenerated disc. Small left central disc protrusi on indents the left ventral spinal cord and contributes to moderate spinal can al stenosis, unchanged. Patent foramina. C5-C6: Moderately degenerated disc with loss of disc height. Disc osteophyte complex and thickened ligamentu m flavum contribute to moderate canal stenosis, unchanged. Mild left foraminal stenosis due to uncovertebral arthrosis. No significant right foraminal steno sis. C6-C7: Patent canal and foramina. C7-T1: Mild bilateral woody inal stenosis due to uncovertebral arthrosis. Incidental findings: Uncha nged 8 mm T2 hyperintense nodule or cyst in the right thyroid lobe. IMPRESS ION: 1. No significant changes from the prior cervical spine MRI of 019. 2. Multilevel disc degeneration, worse/moderate at C5-C6. 3. Congenit al on acquired degenerative canal stenosis from C3 to C6, worse/moderate at C5 -C6 with small disc protrusions at C3-C4 and at C4-C5 and disc osteophyte comp marya at C5-C6. 4. No cord signal abnormalities. Signed by: Dr. Rancho reina M.D. on 03/18/2019 12:44 PM Dictated By: RANCHO Christine chicho Signed By: RANCHO ROSALES MD on 03/18/19 124 Transcribed By: SAEID on 03/18/194 COPY TO: TAMARA ROBERTS MD [id number] 12:03:00 * Test Item Value Reference Range Interpretation Comments GLUBED (test code = GLUBED) 107 mg/dL 74-106 H Performed by certified machine feed operator at [facility] THYROID STIMULATING [id number] 11:03:00* Test Item Value Reference Range Interpretation Comments THYROID STIMULATING HORMONE (test code = TSH) 1.940 uIU/mL 0.36-3.7 4 N TSH REFERENCE RANGES: EUTHYROID: 0.35 - 4.3 mIU/mL HYPO : > 5.5 mIU/mL HYPER : < 0.35 mIU/mL LIPID PROFILE (CORONARY RISK)2018-07-13 10:55:00* Test Item Value Reference Range Interpretation Comments TRIGLYCERIDES (test code = TRIG) 51 mg/dL 20-150 N CHOLESTEROL (test code = CHOL) 158 mg/dL 0-200 N CHOLESTEROL/HDL RATIO (test code = CHOLHDL) 3.0 RATIO 0-4.9 N RISK ASSOCIATED WITH CHOL/HDL RATIOS: Risk Male Female1/2 AVERAGE 3.43 3.27AVERAGE 4.97 4.442X AVERAGE 9.55 7.053X AVERAGE 23.39 11.04 REFERENCE VALUE IS RELATED TO RISK LEVELS ASRECOMMENDED BY THE [place]. HEART, LUNG, AND BLOOD INST. HDL CHOLESTEROL (test code = HDL) 48 mg/dL 40-60 N LIPOPROTEIN LDL (test code = LDL) 100 mg/dL 100-129 N Reference Interval: mg/dL mmol/L Optimal <100 <2.6Near/above optimal 100-129 2.6- 3.3Borderline High 130-159 3.4-4.1High 160-189 4.1-4.9Very High >=190 >=4.9========= This LDL result is a direct measurement.========= CBC W/AUTO [id number] 10:43:00* Test Item Value Reference Range Interpretation Comments WHITE BLOOD CELL (test code = WBC) 11.3 K/mm3 4.5-12.5 N RED BLOOD CELL (test code = RBC) 4.24 mill/mm3 3.7-5.2 N HEMOGLOBIN (test code = HGB) 13.1 gram/dL 11.5-15.5 N HEMATOCRIT (test code = HCT) 41.1 % 36.0-46.0 N MEAN CELL VOLUME (test code = MCV) 96.9 fL 80-98 N MEAN CELL HGB (test code = MCH) 30.9 picogram 27.0-33.0 N MEAN CELL HGB CONCETRATION (test code = MCHC) 31.9 gram/dL 33.0-36. 0 L RED CELL DISTRIBUTION WIDTH (test code = RDW) 13.3 % 11.6-16. 2 N RED CELL DISTRIBUTION WIDTH SD (test code = RDW-SD) 47.8 fL 37 .0-51.0 N PLATELET COUNT (test code = PLT) 306 K/mm3 150-450 N MEAN PLATELET VOLUME (test code = MPV) 8.9 fL 6.7-11.0 N NEUTROPHIL % (test code = NT%) 60.2 % 39.0-69.0 N IMMATURE GRANULOCYTE % (test code = IG%) 0.4 % 0.0-5.0 N LYMPHOCYTE % (test code = LY%) 30.9 % 25.0-55.0 N MONOCYTE % (test code = MO%) 5.7 % 0.0-10.0 N EOSINOPHIL % (test code = EO%) 1.9 % 0.0-5.0 N BASOPHIL % (test code = BA%) 0.9 % 0.0-1.0 N NUCLEATED RBC % (test code = NRBC%) 0.0 % 0-0 N NEUTROPHIL # (test code = NT#) 6.81 K/mm3 1.8-7.7 N IMMATURE GRANULOCYTE # (test code = IG#) 0.04 x10 3/uL 0-0.03 H LYMPHOCYTE # (test code = LY#) 3.49 K/mm3 1.0-5.0 N MONOCYTE # (test code = MO#) 0.64 K/mm3 0-0.8 N EOSINOPHIL # (test code = EO#) 0.21 K/mm3 0.0-0.5 N BASOPHIL # (test code = BA#) 0.10 K/mm3 0.0-0.2 N NUCLEATED RBC # (test code = NRBC#) 0.00 K/mm3 0.0-0.1 N CBC W/AUTO [id number] 10:36:00* Test Item Value Reference Range Interpretation Comments WHITE BLOOD CELL (test code = WBC) K/mm3 4.5-12.5 RED BLOOD CELL (test code = RBC) mill/mm3 3.7-5.2 HEMOGLOBIN (test code = HGB) 13.1 gram/dL 11.5-15.5 N HEMATOCRIT (test code = HCT) 41.1 % 36.0-46.0 N MEAN CELL VOLUME (test code = MCV) fL 80-98 MEAN CELL HGB (test code = MCH) picogram 27.0-33.0 MEAN CELL HGB CONCETRATION (test code = MCHC) gram/dL 33.0-36. 0 RED CELL DISTRIBUTION WIDTH (test code = RDW) % 11.6-16. 2 RED CELL DISTRIBUTION WIDTH SD (test code = RDW-SD) fL 37 .0-51.0 PLATELET COUNT (test code = PLT) K/mm3 150-450 MEAN PLATELET VOLUME (test code = MPV) fL 6.7-11.0 NEUTROPHIL % (test code = NT%) % 39.0-69.0 IMMATURE GRANULOCYTE % (test code = IG%) % 0.0-5.0 LYMPHOCYTE % (test code = LY%) % 25.0-55.0 MONOCYTE % (test code = MO%) % 0.0-10.0 EOSINOPHIL % (test code = EO%) % 0.0-5.0 BASOPHIL % (test code = BA%) % 0.0-1.0 NEUTROPHIL # (test code = NT#) K/mm3 1.8-7.7 LYMPHOCYTE # (test code = LY#) K/mm3 1.0-5.0 MONOCYTE # (test code = MO#) K/mm3 0-0.8 EOSINOPHIL # (test code = EO#) K/mm3 0.0-0.5 BASOPHIL # (test code = BA#) K/mm3 0.0-0.2 [id number] 07:41:00* Test Item Value Reference Range Interpretation Comments GLUBED (test code = GLUBED) 100 mg/dL 74-106 N Performed by certified machine feed operator at [facility] BASIC METABOLIC [id number] 05:43:00* Test Item Value Reference Range Interpretation Comments SODIUM (test code = NA) 144 mmol/L 136-145 RESU LT VERIFIED BY REPEAT ANALYSIS POTASSIUM (test code = K) 4.0 mmol/L 3.5-5.1 N CHLORIDE (test code = CL) 111.0 mmol/L 98-107 H CARBON DIOXIDE (test code = CO2) 28.0 mmol/L 21-32 N ANION GAP (test code = GAP) 9.0 10-20 L GLUCOSE (test code = GLU) 114 mg/dL 74-106 H BLOOD UREA NITROGEN (test code = BUN) 18 mg/dL 7-18 N GLOMERULAR FILTRATION RATE (test code = GFR) > 60 mL/min >=60 Estimated GFR by using Modified MDRD formula.Chronic kidney disease is defined as either kidney damageor GFR <60 mL/min/1.73 m2 for >3 months. CREATININE (test code = CREAT) 0.60 mg/dL 0.55-1.02 N Note change in reference range due to change in reagent. BUN/CREATININE RATIO (test code = BUN/CREA) 30.0 10-20 H CALCIUM (test code = CA) 9.1 mg/dL 8.5-10.1 N [id number] 05:30:00* Test Item Value Reference Range Interpretation Comments TROPONIN-I (test code = TROPI) <0.015 ng/mL 0-0.045 N [id number] 21:43:00* Test Item Value Reference Range Interpretation Comments TROPONIN-I (test code = TROPI) <0.015 ng/mL 0-0.045 N [id number] 20:34:00* Test Item Value Reference Range Interpretation Comments GLUBED (test code = GLUBED) 146 mg/dL 74-106 H Performed by certified machine feed operator at [facility] URINALYSIS [id number] 17:31:00* Test Item Value Reference Range Interpretation Comments UA COLOR (test code = COLU) YELLOW YELLOW UA APPEARANCE (test code = APPU) CLEAR CLEAR UA GLUCOSE DIPSTICK (test code = DGLUU) 150 (1+) mg/dL NEGATIVE A UA BILIRUBIN DIPSTICK (test code = BILU) NEGATIVE mg/dL NEGATIVE UA KETONE DIPSTICK (test code = KETU) NEGATIVE mg/dL NEGATIVE UA SPECIFIC GRAVITY (test code = SGU) 1.028 1.001-1.035 UA BLOOD DIPSTICK (test code = LEO) Negative mg/dL NEGATIVE UA PH DIPSTICK (test code = LYNSEY) 6.0 5.0-8.0 UA PROTEIN DIPSTICK (test code = PROU) 10 (Trace) mg/dL NEGATIVE A UA UROBILINIOGEN DIPSTICK (test code = URO) Normal mg/dL NEGATIVE UA NITRITE DIPSTICK (test code = IAIN) NEGATIVE NEGATIVE UA LEUKOCYTE ESTERASE W REFLEX (test code = LEUUR) 75 Lisandro/uL (1+) Lisandro/uL NEGATIVE A UA WBC (test code = WBCU) 6-10 per HPF 0-5 A UA RBC (test code = RBCU) 6-10 #/HPF 0-5 A UA EPITHELIAL CELLS (test code = EPIU) FEW per HPF FEW UA BACTERIA (test code = BACU) FEW #/HPF NONE A UA MUCUS (test code = MUCU) FEW #/LPF FEW Urine Source? Clean CatchURINALYSIS [id number] 17:25:00* Test Item Value Reference Range Interpretation Comments UA COLOR (test code = COLU) YELLOW YELLOW UA APPEARANCE (test code = APPU) CLEAR CLEAR UA GLUCOSE DIPSTICK (test code = DGLUU) 150 (1+) mg/dL NEGATIVE A UA BILIRUBIN DIPSTICK (test code = BILU) NEGATIVE mg/dL NEGATIVE UA KETONE DIPSTICK (test code = KETU) NEGATIVE mg/dL NEGATIVE UA SPECIFIC GRAVITY (test code = SGU) 1.028 1.001-1.035 UA BLOOD DIPSTICK (test code = LEO) Negative mg/dL NEGATIVE UA PH DIPSTICK (test code = LYNSEY) 6.0 5.0-8.0 UA PROTEIN DIPSTICK (test code = PROU) 10 (Trace) mg/dL NEGATIVE A UA UROBILINIOGEN DIPSTICK (test code = URO) Normal mg/dL NEGATIVE UA NITRITE DIPSTICK (test code = IAIN) NEGATIVE NEGATIVE UA LEUKOCYTE ESTERASE W REFLEX (test code = LEUUR) 75 Lisandro/uL (1+) Lisandro/uL NEGATIVE A UA WBC (test code = WBCU) per HPF 0-5 UA RBC (test code = RBCU) per HPF 0-5 UA EPITHELIAL CELLS (test code = EPIU) per HPF Few UA BACTERIA (test code = BACU) per HPF NONE Urine Source? Clean Catch- XR CHEST 2 [id number] 15:38:00 FAX: Madelyn Ng [phone] [place]: St: REG Name: STEPHEN MILLAN [facility] : [birth year] 65 Age/S: 58/F [address] [facility] Unit #: [id number] Loc: [place] [address] Phys: Madelyn Rick MD Acct: [id number] Dis Date: Status: REG ER PHONE #: [phone] Exam Date: 07/12/2018 1520 FAX #: [phone] Reason: cp EXAMS: CPT CODE: [id number] XR CHEST 2 V [id number] REASON FOR EXAM: cp Exam Order Date: 07/12/2018 2:26 PM Ordering M.D.: Madelyn Rick MD PROCEDURE: - XR CHEST 2 V COMPARISON: AP chest x-ray December 07, 2017 FINDINGS: The lungs are cl ear. There is no pleural effusion or pneumothorax. Pulmonary vascularity is within normal limits. Cardiomediastinal silhouette is normal in size for technique. The mediastinal contours are within normal limits. Musculoskeletal structures are within normal limits. P rior cholecystectomy. IMPRESSION: No acute cardiopulmona ry process. at 1539 Reported and signed by: Rob Alcazar MD CC: Madelyn Rick MD Technologist: [employer]IFF [employer]EM[employer] RT(R) Trnscrd Date/Time/By: 07/12 (3757) : By: [email or web address] Orig Print D/T: S: 07/12/2018 (6118) PAGE 1 Signed Report B-TYPE NATRIURETIC [id number] 15:10:00* Test Item Value Reference Range Interpretation Comments B-TYPE NATRIURETIC PEPTIDE (test code = BNP) 9.99 pgram/mL 0-100 N COMPREHENSIVE METABOLIC [id number] 14:59:00* Test Item Value Reference Range Interpretation Comments SODIUM (test code = NA) 153 mmol/L 136-145 H POTASSIUM (test code = K) 3.8 mmol/L 3.5-5.1 N CHLORIDE (test code = CL) 118.0 mmol/L 98-107 H CARBON DIOXIDE (test code = CO2) 26.0 mmol/L 21-32 N ANION GAP (test code = GAP) 12.8 10-20 N GLUCOSE (test code = GLU) 254 mg/dL 74-106 H BLOOD UREA NITROGEN (test code = BUN) 15 mg/dL 7-18 N GLOMERULAR FILTRATION RATE (test code = GFR) > 60 mL/min >=60 Estimated GFR by using Modified MDRD formula.Chronic kidney disease is defined as either kidney damageor GFR <60 mL/min/1.73 m2 for >3 months. CREATININE (test code = CREAT) 0.90 mg/dL 0.55-1.02 N Note change in reference range due to change in reagent. BUN/CREATININE RATIO (test code = BUN/CREA) 16.7 10-20 N TOTAL PROTEIN (test code = PROT) 7.5 gram/dL 6.4-8.2 N ALBUMIN (test code = ALB) 3.7 g/dL 3.4-5.0 N GLOBULIN (test code = GLOB) 3.8 gram/dL 2.7-4.2 N ALBUMIN/GLOBULIN RATIO (test code = A/G) 1.0 0.75-1.50 N CALCIUM (test code = CA) 9.1 mg/dL 8.5-10.1 N BILIRUBIN TOTAL (test code = BILT) 0.30 mg/dL 0.0-1.0 N SGOT/AST (test code = AST) 10 IUnit/L 15-37 L SGPT/ALT (test code = ALT) 25 IUnit/L 12-78 N ALKALINE PHOSPHATASE TOTAL (test code = ALKP) 89 IUnit/L 45-117 N Note change in reference range due to change in reagent. [id number] 14:59:00* Test Item Value Reference Range Interpretation Comments LIPASE (test code = LIP) 96 U/L 73.0-393.0 N [id number] 14:59:00* Test Item Value Reference Range Interpretation Comments CKMB (test code = CKMBT) 1.0 ng/mL 0-6.0 N [id number] 14:59:00* Test Item Value Reference Range Interpretation Comments TROPONIN-I (test code = TROPI) <0.015 ng/mL 0-0.045 N COMPREHENSIVE METABOLIC [id number] 14:47:00* Test Item Value Reference Range Interpretation Comments SODIUM (test code = NA) 153 mmol/L 136-145 H POTASSIUM (test code = K) 3.8 mmol/L 3.5-5.1 N CHLORIDE (test code = CL) 118.0 mmol/L 98-107 H CARBON DIOXIDE (test code = CO2) mmol/L 21-32 ANION GAP (test code = GAP) 10-20 GLUCOSE (test code = GLU) mg/dL 74-106 BLOOD UREA NITROGEN (test code = BUN) mg/dL 7-18 GLOMERULAR FILTRATION RATE (test code = GFR) mL/min >=60 CREATININE (test code = CREAT) mg/dL 0.55-1.02 BUN/CREATININE RATIO (test code = BUN/CREA) 10-20 TOTAL PROTEIN (test code = PROT) gram/dL 6.4-8.2 ALBUMIN (test code = ALB) g/dL 3.4-5.0 GLOBULIN (test code = GLOB) gram/dL 2.7-4.2 ALBUMIN/GLOBULIN RATIO (test code = A/G) 0.75-1.50 CALCIUM (test code = CA) mg/dL 8.5-10.1 BILIRUBIN TOTAL (test code = BILT) mg/dL 0.0-1.0 SGOT/AST (test code = AST) IUnit/L 15-37 SGPT/ALT (test code = ALT) IUnit/L 12-78 ALKALINE PHOSPHATASE TOTAL (test code = ALKP) IUnit/L 45-117 [id number] 14:47:00* Test Item Value Reference Range Interpretation Comments LIPASE (test code = LIP) U/L 73.0-393.0 [id number] 14:47:00* Test Item Value Reference Range Interpretation Comments CKMB (test code = CKMBT) ng/mL 0-6.0 [id number] 14:47:00* Test Item Value Reference Range Interpretation Comments TROPONIN-I (test code = TROPI) ng/mL 0-0.045 CBC W/AUTO [id number] 14:33:00* Test Item Value Reference Range Interpretation Comments WHITE BLOOD CELL (test code = WBC) 13.4 K/mm3 4.5-12.5 H RED BLOOD CELL (test code = RBC) 4.55 mill/mm3 3.7-5.2 N HEMOGLOBIN (test code = HGB) 14.2 gram/dL 11.5-15.5 N HEMATOCRIT (test code = HCT) 43.0 % 36.0-46.0 N MEAN CELL VOLUME (test code = MCV) 94.5 fL 80-98 N MEAN CELL HGB (test code = MCH) 31.2 picogram 27.0-33.0 N MEAN CELL HGB CONCETRATION (test code = MCHC) 33.0 gram/dL 33.0-36. 0 N RED CELL DISTRIBUTION WIDTH (test code = RDW) 13.0 % 11.6-16. 2 N RED CELL DISTRIBUTION WIDTH SD (test code = RDW-SD) 44.7 fL 37 .0-51.0 N PLATELET COUNT (test code = PLT) 351 K/mm3 150-450 N MEAN PLATELET VOLUME (test code = MPV) 8.7 fL 6.7-11.0 N NEUTROPHIL % (test code = NT%) 66.8 % 39.0-69.0 N IMMATURE GRANULOCYTE % (test code = IG%) 0.4 % 0.0-5.0 N LYMPHOCYTE % (test code = LY%) 26.6 % 25.0-55.0 N MONOCYTE % (test code = MO%) 4.3 % 0.0-10.0 N EOSINOPHIL % (test code = EO%) 1.2 % 0.0-5.0 N BASOPHIL % (test code = BA%) 0.7 % 0.0-1.0 N NUCLEATED RBC % (test code = NRBC%) 0.0 % 0-0 N NEUTROPHIL # (test code = NT#) 8.91 K/mm3 1.8-7.7 H IMMATURE GRANULOCYTE # (test code = IG#) 0.05 x10 3/uL 0-0.03 H LYMPHOCYTE # (test code = LY#) 3.55 K/mm3 1.0-5.0 N MONOCYTE # (test code = MO#) 0.58 K/mm3 0-0.8 N EOSINOPHIL # (test code = EO#) 0.16 K/mm3 0.0-0.5 N BASOPHIL # (test code = BA#) 0.10 K/mm3 0.0-0.2 N NUCLEATED RBC # (test code = NRBC#) 0.00 K/mm3 0.0-0.1 N MANUAL DIFF REQUIRED (test code = MDIFF) NO MRI SPINE CERVICAL [id number] 09:22:00 [place] [address] Patient Name: STEPHEN MUKHERJEE MR #: [id number] : 1960 Age/Sex: 58/F Req #: [id number] Adm Physician: Ordered by: TAMARA ROBERTS MD Report #: [id number] Location: MRI Room/Bed: Procedure: [id number] MRI/M RI SPINE CERVICAL WO Exam Date: 04/22/18 Exam Time: 1500 REPORT STATUS: Signed MRI S PINE CERVICAL WO HISTORY: Neck and bilateral shoulder pain COMPARISON: MRI of the thoracic spine 10/20/2017 TECHNIQUE: Sagittal T1, sagittal T2, sagittal inversion recovery, axial T2 and axial T1 weighted MR images of the c ervical spine were obtained without intravenous contrast. DISCUSSION: Alignment: Straightening of the cervical lordosis. No scoliosis. Vertebrae: No definite evidence for fractures, infection, or neoplasm. Cervicomedullary junction: No abnormalities. Spinal cord: The ventral cord is mildly indented b y disc at C5-C6. The cord is otherwise normal in signal and morphology from th e foramen magnum through T4-T5. Soft tissues: The adenoid and palatine tonsi ls are mildly prominent. A few mildly prominent bilateral upper jugular chain lymph nodes are present. There is a 0.8 cm T2 hyperintense nodule in the right thyroid lobe. Mild to moderate multilevel disc degeneration is most promin ent at C5-C6. This is superimposed on a congenitally narrow cervical spinal ca nal. Mild atlantoaxial arthrosis is present as well. C2-C3: Patent canal and foramina. C3-C4: Patent canal and foramina. C4-C5: Mild canal sten osis due to posterior disc osteophyte complex. Mild left foraminal stenosis du e to uncovertebral and facet arthrosis. No significant right foraminal stenosi s. C5-C6: Moderate canal stenosis due to posterior disc osteophyte complex and ligamentum flavum thickening. Mild bilateral foraminal stenoses due to u ncovertebral and facet arthrosis. C6-C7: Patent canal and foramina. C7 -T1: Mild bilateral foraminal stenoses due to uncovertebral and facet arthrosi s. No significant canal stenosis. IMPRESSION: 1. Mild to moderate mu ltilevel disc degeneration, most prominent at C5-C6, superimposed on a congeni tally narrow cervical spinal canal. 2. Moderate C5-C6 and mild C4-C5 congeni ira/degenerative canal stenoses. The ventral cord is mildly indented by disc a t C5-C6. 3. Mild multilevel bilateral degenerative foraminal stenoses as desc ribed above. Signed by: Dr. Quintin Will M.D. on 04/23/2018 9:30 AM Dictated By: QUINTIN WILL MD 9 Transcribed By: SAEID on 04/23/18929 COPY TO: TAMARA ROBERTS MD MRI SHOULDER RIGHT [id number] 17:52:00 [place] [address] Patient Name: STEPHEN MUKHERJEE MR #: [id number] : 1960 Age/Sex: 58/F Req #: [id number] Adm Physician: Ordered by: TAMARA ROBERTS MD Report #: [id number] Location: MRI Room/Bed: Procedure: [id number] MRI/M RI SHOULDER RIGHT WO Exam Date: 04/22/18 Exam Time: 1432 REPORT STATUS: Signed TECHN IQUE: Magnetic resonance imaging of the RIGHT SHOULDER was performed WITHOUT i njected contrast. HISTORY: Pain, limited motion, bursitis COMPARISON: None available. FINDINGS: MUSCLES AND TENDONS: Rotator Cuff: Tendon s: Supraspinatus and Infraspinatus: Low-grade articular sided partial-thick ness tearing of the anterior supraspinatus tendon. Adjacent intrasubstance d egeneration. Minimal intrasubstance degeneration of the infraspinatus tendon. Teres Minor: Intact Subscapularis: Intact Muscles: No focal muscle atro phy. Biceps Tendon: The long head of the biceps tendon is within the in tertubercular groove. GLENOHUMERAL JOINT: Glenoid Labrum: Diffuse comple x tearing and mild attenuation, including the biceps labral anchor, most notab ly the inferior portions of the labrum. Articular Cartilage: High-grade to fu ll-thickness erosions. Joint Fluid: Synovitis and trace effusion. ACROMIO CLAVICULAR JOINT: Moderate hypertrophic degenerative changes of the acromioc lavicular joint. Mild synovitis. BONE: The acromion is unremarkable. The bone marrow signal is heterogeneous, compatible with red marrow conversion, no specific evidence of a focal bone marrow replacing abnormality. No acute fracture. SOFT TISSUES: Otherwise, unremarkable. IMPRESSION: 1. Supraspinatus greater than infraspinatus tendinosis with low-grade par tial-thickness articular sided tearing of the anterior supraspinatus tendon. 2 . Moderate degenerative changes of the acromioclavicular joint and glenohumer al joint, including diffuse degenerative tearing of the labrum. Signed by: She DaughertyO., M.M.M. on 04/22/2018 6:05 PM Dictated By: DAMION KULKANRI DO 04 Transcribed By : SAEID on 04/22/181804 COPY TO: TAMARA ROBERTS MD Sodium Level 2018-03-30 21:09:00* Test Item Value Reference Range Interpretation Comments Sodium Level (test code = 2951-2) 138 136-145 [facility] Jhkbq0076-67-07 21:09:00* Test Item Value Reference Range Interpretation Comments Potassium Level (test code = 2823-3) 3.5 3.5-5.1 [facility] HospitalChloride Bxggm9676-09-56 21:09:00* Test Item Value Reference Range Interpretation Comments Chloride Level (test code = 2075-0) 101 98-107 [facility] HospitalCarbon Dioxide Ihdbi7917-51-42 21:09:00* Test Item Value Reference Range Interpretation Comments Carbon Dioxide Level (test code = 2028-9) 25 22-29 [facility] HospitalAnion Qez4594-80-22 21:09:00* Test Item Value Reference Range Interpretation Comments Anion Gap (test code = 57886-5) 15.5 8-16 [facility] HospitalBlood Urea Kyndomqe9233-29-90 21:09:00* Test Item Value Reference Range Interpretation Comments Blood Urea Nitrogen (test code = 3094-0) 16 7-26 [facility] HospitalCreatinine2019-02-18 21:09:00* Test Item Value Reference Range Interpretation Comments Creatinine (test code = 2160-0) 0.84 0.57-1.11 [facility] HospitalBUN/Creatinine Luypu7015-57-48 21:09:00* Test Item Value Reference Range Interpretation Comments BUN/Creatinine Ratio (test code = 3097-3) 19 6- [facility] HospitalEstimat Glomerular Filtration Rate 2018-03-30 21:09:00* Test Item Value Reference Range Interpretation Comments Estimat Glomerular Filtration Rate (test code = 112166903) > 60 >60 Ranges were taken from the National Kidney Disease Education Program and the [facility] literature.Reference ranges:60 or greater: Uqsbwk79-71 ( for 3 consecutive months): Chronic kidney disease 15 or less: Kidney failureFormerly [facility] HospitalGlucose Gghot5638-15-64 21:09:00* Test Item Value Reference Range Interpretation Comments Glucose Level (test code = EBL2941) 112 74-118 [facility] HospitalCalcium Rrzum0878-82-73 21:09:00* Test Item Value Reference Range Interpretation Comments Calcium Level (test code = 00528-5) 9.5 8.4-10.2 [facility] HospitalMagnesium Wmvgw0273-83-13 21:09:00* Test Item Value Reference Range Interpretation Comments Magnesium Level (test code = 56576-2) 2.1 1.3-2.1 [facility] HospitalTotal Ygknxqnur5358-14-31 21:09:00* Test Item Value Reference Range Interpretation Comments Total Bilirubin (test code = 1975-2) 0.1 0.2-1.2 L [facility] HospitalAspartate Amino Transf (AST/SGOT) 2018-03-30 21:09:00* Test Item Value Reference Range Interpretation Comments Aspartate Amino Transf (AST/SGOT) (test code = Aspartate Amino Transf (AST/SGOT)) 19 5-34 [facility] HospitalAlanine Aminotransferase (ALT/SGPT) 2018-03-30 21:09:00* Test Item Value Reference Range Interpretation Comments Alanine Aminotransferase (ALT/SGPT) (test code = 1742-6) 29 0-55 [facility] HospitalTotal Agwvakh7390-40-58 21:09:00* Test Item Value Reference Range Interpretation Comments Total Protein (test code = 2885-2) 7.1 6.5-8.1 [facility] HospitalAlbumin2019-02-18 21:09:00* Test Item Value Reference Range Interpretation Comments Albumin (test code = 1751-7) 3.8 3.5-5.0 [facility] HospitalGlobulin2019-02-18 21:09:00* Test Item Value Reference Range Interpretation Comments Globulin (test code = 41942-4) 3.3 2.3-3.5 [facility] HospitalAlbumin/Globulin Slnol3123-77-70 21:09:00 * Test Item Value Reference Range Interpretation Comments Albumin/Globulin Ratio (test code = 1759-0) 1.2 0.8-2.0 [facility] HospitalAlkaline Vlnsqfckgch8997-79-77 21:09:00* Test Item Value Reference Range Interpretation Comments Alkaline Phosphatase (test code = 6768-6) 74 40-150 [facility] HospitalAmylase Btatn5731-92-52 21:09:00* Test Item Value Reference Range Interpretation Comments Amylase Level (test code = 1798-8) 40 25-125 [facility] HospitalLipase2019-02-18 21:09:00* Test Item Value Reference Range Interpretation Comments Lipase (test code = 3040-3) 13 8-78 [facility] HospitalWhite Blood Waadg4856-04-66 20:43:00* Test Item Value Reference Range Interpretation Comments White Blood Count (test code = 6690-2) 13.56 4.8-10.8 H [facility] HospitalRed Blood Ctzxx2180-78-67 20:43:00* Test Item Value Reference Range Interpretation Comments Red Blood Count (test code = 789-8) 4.44 3.6-5.1 [facility] HospitalHemoglobin2019-02-18 20:43:00* Test Item Value Reference Range Interpretation Comments Hemoglobin (test code = 23726-7) 13.8 12.0-16.0 [facility] HospitalHematocrit2019-02-18 20:43:00* Test Item Value Reference Range Interpretation Comments Hematocrit (test code = 4544-3) 41.0 34.2-44.1 [facility] HospitalMean Corpuscular Dykjoh8275-12-16 20:43:00* Test Item Value Reference Range Interpretation Comments Mean Corpuscular Volume (test code = 787-2) 92.3 81-99 [facility] HospitalMean Corpuscular Vrgtshuurt5385-16-06 20:43:00* Test Item Value Reference Range Interpretation Comments Mean Corpuscular Hemoglobin (test code = 785-6) 31.1 28-32 [facility] HospitalMean Corpuscular Hemoglobin Concent 2018-03-30 20:43:00* Test Item Value Reference Range Interpretation Comments Mean Corpuscular Hemoglobin Concent (test code = 786-4) 33.7 31-35 [facility] HospitalRed Cell Distribution Xyiev1444-14-60 20:43:00* Test Item Value Reference Range Interpretation Comments Red Cell Distribution Width (test code = 26923-6) 12.7 11.7 -14.4 [facility] HospitalPlatelet Oofnf2569 20:43:00* Test Item Value Reference Range Interpretation Comments Platelet Count (test code = 777-3) 322 140-360 [facility] HospitalNeutrophils (%) (Auto)2018-03-30 20:43:00 * Test Item Value Reference Range Interpretation Comments Neutrophils (%) (Auto) (test code = 20847-7) 59.5 38.7-80.0 [facility] HospitalLymphocytes (%) (Auto)2018-03-30 20:43:00 * Test Item Value Reference Range Interpretation Comments Lymphocytes (%) (Auto) (test code = 736-9) 33.0 18.0-39.1 [facility] HospitalMonocytes (%) (Auto)2018-03-30 20:43:00* Test Item Value Reference Range Interpretation Comments Monocytes (%) (Auto) (test code = 5905-5) 5.6 4.4-11.3 [facility] HospitalEosinophils (%) (Auto)2018-03-30 20:43:00 * Test Item Value Reference Range Interpretation Comments Eosinophils (%) (Auto) (test code = 713-8) 1.1 0.0-6.0 [facility] HospitalBasophils (%) (Auto)2018-03-30 20:43:00* Test Item Value Reference Range Interpretation Comments Basophils (%) (Auto) (test code = 706-2) 0.5 0.0-1.0 [facility] HospitalIM GRANULOCYTES %2018-03-30 20:43:00* Test Item Value Reference Range Interpretation Comments IM GRANULOCYTES % (test code = IM GRANULOCYTES %) 0.3 0.0- 1.0 [facility] HospitalNeutrophils # (Auto)2018-03-30 20:43:00* Test Item Value Reference Range Interpretation Comments Neutrophils # (Auto) (test code = 751-8) 8.1 2.1-6.9 H [facility] HospitalLymphocytes # (Auto)2018-03-30 20:43:00* Test Item Value Reference Range Interpretation Comments Lymphocytes # (Auto) (test code = 93615-6) 4.5 1.0-3.2 H [facility] HospitalMonocytes # (Auto)2018-03-30 20:43:00* Test Item Value Reference Range Interpretation Comments Monocytes # (Auto) (test code = 742-7) 0.8 0.2-0.8 [facility] HospitalEosinophils # (Auto)2018-03-30 20:43:00* Test Item Value Reference Range Interpretation Comments Eosinophils # (Auto) (test code = 711-2) 0.2 0.0-0.4 [facility] HospitalBasophils # (Auto)2018-03-30 20:43:00* Test Item Value Reference Range Interpretation Comments Basophils # (Auto) (test code = 704-7) 0.1 0.0-0.1 [facility] HospitalAbsolute Immature Granulocyte (auto 2018-03-30 20:43:00* Test Item Value Reference Range Interpretation Comments Absolute Immature Granulocyte (auto (lucía t code = Absolute Immature Granulocyte (auto) 0.04 0-0.1 [facility] HospitalCT ABDOMEN/PELVIS [id number] 19:50:00 [place] [address] Patient Name: STEPHEN MUKHERJEE MR #: [id number] : 1960 Age/Sex: 58/F Req #: [id number] Adm Physician: Ordered by: SCOTT YEBOAH [employer] Report #: [id number] Location: ER Room/Bed: Procedure: [id number] CT/CT ABDOMEN/PELVIS WO Exam Date: 03/30/18 Exam Ti me: 191 REPORT STATUS: Signed E XAM: CT Abdomen and Pelvis WITHOUT contrast INDICATION: Left-sided abdo catherine pain. STONE PROTOCOL COMPARISON: CT abdomen and pelvis 09/22/2017. 2017. 08/26/2017 TECHNIQUE: Abdomen and pelvis were scanned utilizing a Promodity helical scanner from the lung base to the pubic symphysis without admin istration of IV contrast. Absence of intravenous contrast decreases sensitivit y for detection of focal lesions and vascular pathology. Coronal and sagittal reformations were obtained. Stone protocol is performed. IV CONTRAST: N one ORAL CONTRAST: Water COMPLICATIONS: None RADIAT ION DOSE: Total DLP: 761.73 mGy*cm Estimated effective dose: (DLP x 0.015 x size factor) mSv CTDIvol has been reviewed. It is below the orellana its set by the Radiation Protocol Committee (RPC). FINDINGS: LINES a nd TUBES: None. LOWER THORAX: Unremarkable HEPATOBILIARY: No foc al hepatic lesions. No biliary ductal dilation. GALLBLADDER: There are cho lecystectomy clips. SPLEEN: No splenomegaly. PANCREAS: No focal mas ses or ductal dilatation. ADRENALS: No adrenal nodules KIDNEYS/U RETERS: No hydronephrosis. No cystic or solid mass lesions. No stones. GI TRACT: No abnormal distention, wall thickening, or evidence of bowel obstru ction. Appendix is not clearly identified. There is however no fat stran ding or adenopathy in the right lower quadrant to suggest appendicitis. PEL MÓNICA ORGANS/BLADDER: Uterus is surgically absent. Both ovaries are not clearly identified. Mild pelvic floor prolapse. LYMPH NODES: No lymphadenopathy. VESSELS: There is mild atherosclerotic disease in the aorta and major arterial branches. PERITONEUM / RETROPERITONEUM: No free air or fluid. BONES: Unremarkable. SOFT TISSUES: Unremarkable. IMPRESSION: 1. No renal stones or source of left flank pain identified. 2. Pelvic floor prolapse. Signed by: Dr. Heriberto Woods M.D. on 03/30/2018 7:55 PM Dictated By: HERIBERTO WOODS MD 54 Transc ribed By: SAEID on 03/30/181954 COPY TO: SCOTT YEBOAH NP Urine [id number] 17:18:00* Test Item Value Reference Range Interpretation Comments Urine WBC (test code = 5821-4) NONE 0-5 [facility] HospitalUrine [id number] 17:18:00* Test Item Value Reference Range Interpretation Comments Urine RBC (test code = 09907-7) 0-5 0-5 [facility] HospitalUrine Inecchcp7886-50-99 17:18:00* Test Item Value Reference Range Interpretation Comments Urine Bacteria (test code = 60082-5) MODERATE NONE H [facility] HospitalUrine Epithelial Jcykz7325-41-77 17:18:00 * Test Item Value Reference Range Interpretation Comments Urine Epithelial Cells (test code = 19119-8) MODERATE NONE [facility] HospitalUrine Renal Epithelial Ieepj6772-90-02 17:18:00* Test Item Value Reference Range Interpretation Comments Urine Renal Epithelial Cells (test code = 47193-8) FEW NON E H [facility] HospitalUrine Amorphous Qjrbevuq6812-31-53 17:18:00* Test Item Value Reference Range Interpretation Comments Urine Amorphous Sediment (test code = 8246-1) MODERATE FEW H [facility] HospitalUrine Esjqz1581-92-04 17:18:00* Test Item Value Reference Range Interpretation Comments Urine Mucus (test code = 8247-9) MANY RARE H [facility] HospitalUrine Uwclm4571-31-48 17:08:00* Test Item Value Reference Range Interpretation Comments Urine Color (test code = 5778-6) YELLOW YELLOW [facility] HospitalUrine Zdzeurl1156-87-95 17:08:00* Test Item Value Reference Range Interpretation Comments Urine Clarity (test code = 38944-7) CLEAR CLEAR [facility] HospitalUrine Specific Pfqplbd9210-39-68 17:08:00 * Test Item Value Reference Range Interpretation Comments Urine Specific [place] (test code = 5811-5) 1.020 1.010-1.02 5 [facility] HospitalUrine [id number] 17:08:00* Test Item Value Reference Range Interpretation Comments Urine pH (test code = 76233-8) 6 5-7 [facility] HospitalUrine Leukocyte Pnvshqkm1253-46-80 17:08:00* Test Item Value Reference Range Interpretation Comments Urine Leukocyte Esterase (test code = 5799-2) NEGATIVE NEGATIVE [facility] HospitalUrine Nuyunpf7040-52-22 17:08:00* Test Item Value Reference Range Interpretation Comments Urine Nitrite (test code = 34154-7) NEGATIVE NEGATIVE [facility] HospitalUrine Pnsvynl6645-58-92 17:08:00* Test Item Value Reference Range Interpretation Comments Urine Protein (test code = 5804-0) NEGATIVE NEGATIVE [facility] HospitalUrine Glucose (UA)2018-03-30 17:08:00* Test Item Value Reference Range Interpretation Comments Urine Glucose (UA) (test code = 2349-9) NEGATIVE NEGATIVE [facility] HospitalUrine Odmygrf1665-77-56 17:08:00* Test Item Value Reference Range Interpretation Comments Urine Ketones (test code = 86892-6) NEGATIVE NEGATIVE [facility] HospitalUrine Ktkzpcyworxz1695-16-55 17:08:00* Test Item Value Reference Range Interpretation Comments Urine Urobilinogen (test code = 95092-4) 0.2 0.2-1 [facility] HospitalUrine Vorqmitqd7878-27-87 17:08:00* Test Item Value Reference Range Interpretation Comments Urine Bilirubin (test code = 1978-6) NEGATIVE NEGATIVE [facility] HospitalUrine Uqvux5784-05-57 17:08:00* Test Item Value Reference Range Interpretation Comments Urine Blood (test code = 13664-7) TRACE NEGATIVE H [facility] HospitalMRI SPINE LUMBAR [id number] 08:20:00 [place] [address] Patient Name: STEPHEN MUKHERJEE MR #: [id number] : 1960 Age/Sex: 57/F Req #: [id number] Adm Physician: Ordered by: LESLIE ISIDRO MD Report #: [id number] Location: MRI Room/Be d: Procedure: [id number] MRI/MRI SPINE LUMBAR WO Exam Date: Exam Time: REPORT STATUS: Signed Ex ams: Thoracic and lumbar spine MRIs without IV contrast History: Back pain, radiculopathy symptoms Comparison studies: None Technique: Thoracic s pine: Sagittal T1, T2, STIR, axial T1 and T2, coronal T2. Lumbar spine: Sagitt al T1, T2, STIR, axial T2 and spin density oblique, coronal T2. IV contrast: None. Findings: Number of lumbar vertebral bodies:5. Alignment: Normal thoracic kyphosis. Straight lumbar curvature. No significant scoliosis. Minimal thoracolumbar curvature convex to the left. Lower thoracic cord: Normal in signal and morphology. The tip of the conus is at L1. Soft tissues : No T2 hyperintense inflammatory changes. Paraspinal muscles: Well preserved. Vertebrae: Normal in height and signal intensity. No compression frac tures or infection. Small T1 hyperintense L3 and L4 vertebral body hemangiomas . Degenerative changes: Incompletely imaged cervical spine: Modera tely degenerated C5-C6 disc at least mild canal stenosis due to a disc osteoph yte complex. Thoracic spine: Mild multilevel disc degeneration, greatest from T2 to T7 with loss of T2/STIR disc signal. Small left central disc protru sions at T5-T6 and at T6-T7. Patent canal and foramina. Lumbar spine: L 1-L2: No abnormalities. L2-L3: Mildly degenerated disc. Asymmetric left dis c bulge with mild left foraminal stenosis. Patent canal and right foramen. L3-L4: Asymmetric left disc bulge with left foraminal annular fissure and mild facet arthrosis with mild left foraminal stenosis. No significant canal or right foraminal stenosis. L4-L5: Mildly degenerated disc. Symmetric disc b ulge with mild bilateral foraminal stenosis. No significant canal stenosis. 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 There may be mild mass effect on the left S1 nerve root at the left subarticular zone at the disc level (series 13, image 36 and se venus 15, image 23). Patent canal and foramina. IMPRESSION: Thora cic spine: 1. Mild multilevel disc degeneration. 2. Patent thoracic canal and foramina. Lumbar spine: 1. Mild multilevel lumbar disc degeneration with annular fissure at L3-L4. 2. Mild multilevel degenerative foraminal sten osis from L2 to L5. 3. 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 Signed by: Dr. Gabriela M.D. on 10/21/2017 8:53 AM Dictated By: RANCHO ROSALES MD E lectronically Signed By: RANCHO ROSALES MD on 10/21/17852 Transcribed By: MARLO CONCEPCION on 10/21/17852 COPY TO: LESLIE ISIDRO MD MRI SPINE THORACIC [id number] 08:20:00 [place] [address] Patient Name: STEPHEN MUKHERJEE MR #: [id number] : 1960 Age/Sex: 57/F Req #: [id number] Adm Physician: Ordered by: LESLIE ISIDRO MD Report #: [id number] Location: MRI Room/Bed: Procedure: [id number] MRI/MRI SPINE THORACIC WO Ex am Date: Exam Time: REPORT STATUS: Signed Exams: Thoracic and lumbar spine MRIs without IV contrast History: Back brooke n, radiculopathy symptoms Comparison studies: None Technique: Thoracic spine: Sagittal T1, T2, STIR, axial T1 and T2, coronal T2. Lumbar spine: Sagi ttal T1, T2, STIR, axial T2 and spin density oblique, coronal T2. IV contras t: None. Findings: Number of lumbar vertebral bodies:5. Alignment : Normal thoracic kyphosis. Straight lumbar curvature. No significant scoliosi s. Minimal thoracolumbar curvature convex to the left. Lower thoracic cord : Normal in signal and morphology. The tip of the conus is at L1. Soft tissu es: No T2 hyperintense inflammatory changes. Paraspinal muscles: Well preserve d. Vertebrae: Normal in height and signal intensity. No compression fr actures or infection. Small T1 hyperintense L3 and L4 vertebral body hemangiom as. Degenerative changes: Incompletely imaged cervical spine: Mode rately degenerated C5-C6 disc at least mild canal stenosis due to a disc osteo phyte complex. Thoracic spine: Mild multilevel disc degeneration, greates t from T2 to T7 with loss of T2/STIR disc signal. Small left central disc prot rusions at T5-T6 and at T6-T7. Patent canal and foramina. Lumbar spine: L1-L2: No abnormalities. L2-L3: Mildly degenerated disc. Asymmetric left d isc bulge with mild left foraminal stenosis. Patent canal and right foramen. L3-L4: Asymmetric left disc bulge with left foraminal annular fissure and mi ld facet arthrosis with mild left foraminal stenosis. No significant canal or right foraminal stenosis. L4-L5: Mildly degenerated disc. Symmetric disc bulge with mild bilateral foraminal stenosis. No significant canal stenosis. L5-S1: There appears to be a conjoined left L5-S1 nerve root, an anatomi tyesha developmental anomaly. There may be mild mass effect on the left S1 nerve root at the left subarticular zone at the disc level (series 13, image 36 and series 15, image 23). Patent canal and foramina. IMPRESSION: Tho racic spine: 1. Mild multilevel disc degeneration. 2. Patent thoracic trevor l and foramina. Lumbar spine: 1. Mild multilevel lumbar disc degeneratio n with annular fissure at L3-L4. 2. Mild multilevel degenerative foraminal st enosis from L2 to L5. 3. Incidental conjoined left L5-S1 nerve root with pote ntial mass effect on the left subarticular S1 nerve root, significance of whic h could be correlated for left S1 radiculopathy symptoms. Signed by: Dr. Rancho Rosales M.D. on 10/21/2017 8:53 AM Dictated By: RANCHO ROSALES MD 2 Transcribed By: SAEID on 10/21/17852 COPY TO: LESLIE ISIDOR MD CT ABDOMEN/PELVIS [id number] 18:42:00 [place] [id number] [place] [id number] Patient Name: STEPHEN MUKHERJEE MR #: [id number] : 1960 Age/Sex: 57/F Req #: [id number] Adm Physician: Ordered by: LESLIE ISIDRO MD Report #: [id number] Location: CT Room/Bed: Procedure: [id number] CT/CT ABDOMEN/PELVIS WO Exam Date: 09/22/17 Exam Time: 1814 REPORT STATUS: S igned EXAM: CT Abdomen and Pelvis WITHOUT contrast INDICATION: Hematur ia COMPARISON: 08/26/2017 CT TECHNIQUE: Abdomen and Pelvis was scann ed utilizing a multidetector helical scanner without the use of IV contrast. C oronal and sagittal reformations were obtained. IV CONTRAST: Non e COMPLICATIONS: None RADIATION DOSE: Total D LP: 729 mGy*cm Estimated effective dose: (DLP x 0.015 x size factor) mSv CTDIvol has been reviewed. It is below the limits set by the Radiation Protocol Committee (RPC). FINDINGS: Abdomen: Lung Bases: No acute findings. Solid Organs: Cholecystectomy clips. No hydronephrosis, re nal, or ureteral calculi. Vascular calcification adjacent to ureter stable. Ot herwise, solid organs unremarkable. Upper GI Tract: No small bowel obstru ctive changes. Vascularity: Mild aortic vascular calcifications. No aneurys m. Lymph Nodes: No suspicious adenopathy. Other: No free fluid or free air. Tiny fat-containing umbilical hernia. Pelvis: Bladder: Un remarkable. Numerous pelvic phleboliths posterior to urinary bladder stable. Other: Uterus surgically absent. Colon: No acute colonic findings. Bones: No acute findings. IMPRESSION: 1. No acute findings. Si gned by: Dr. Gonzalez Eisenberg MD on 09/22/2017 6:45 PM Dictated By: GONZALEZ RUSSELL MD 44 Transcri bed By: SAEID on 09/22/171844 COPY TO: LESLIE ISIDRO MD CT ABDOMEN/PELVIS [id number] 23:40:00 [place] [address] Patient Name: STEPHEN MUKHERJEE MR #: [id number] : 1960 Age/Sex: 57/F Req #: [id number] Adm Physician: Ordered by: JONES ROUSE MD Report #: [id number] Location: ER Room/Bed: Procedure: [id number] CT/CT ABDOMEN/PELVIS WO Exam Date: 08/26/17 Exam Time: [address] ATUS: Signed EXAM: CT Abdomen and Pelvis WITHOUT contrast INDICATION: Vinicius al stone. COMPARISON: None. TECHNIQUE: Abdomen and pelvis were scanned utili [employer]uated[employer]ng a multidetector helical scanner from the lung base to the pubic symphysis without administration of IV contrast. Absence of intravenous contrast decrea ses sensitivity for detection of focal lesions and vascular pathology. Coronal and sagittal reformations were obtained. Stone protocol is performed. IV CONTRAST: None. ORAL CONTRAST: Water RADIA TION DOSE: Total DLP: 761.28 mGy*cm Estimated effective dose: (DL P x 0.015 x size factor) mSv COMPLICATIONS: [...] abnormal distention, wall thickening, or evidence of b owel obstruction. Appendix is normal. PELVIC ORGANS/BLADDER: There are postop changes of hysterectomy and bilateral oophorectomies. LYMPH NO WILLEM: No lymphadenopathy. VESSELS: There is mild atherosclerotic disease in the aorta and major arterial branches. PERITONEUM / RETROPERITONEUM: No f ree air or fluid. BONES: Degenerative changes of the left SI joint. SO FT TISSUES: Calcified injection granuloma in the right superior outer buttock. IMPRESSION: 1. No evidence of nephrolithiasis or hydroneph rosis. Signed by: Dr. Jose Carlos Carbajal M.D. on 08/26/2017 11:42 PM Dictat ed By: JOSE CARLOS NOVOA MD 41 Transcribed By: SAEID on 08/26/17 2342 COPY TO: JONES KENNEDY MD Sodium Wcuiq4849-99-92 21:55:00* Test Item Value Reference Range Interpretation Comments Sodium Level (test code = 2951-2) 141 136-145 [facility] Htpgr5279-82-13 21:55:00* Test Item Value Reference Range Interpretation Comments Potassium Level (test code = 2823-3) 3.7 3.5-5.1 [facility] HospitalChloride Wcivv8456-31-53 21:55:00* Test Item Value Reference Range Interpretation Comments Chloride Level (test code = 2075-0) 105 98-107 [facility] HospitalCarbon Dioxide Nzlqg0604-12-07 21:55:00* Test Item Value Reference Range Interpretation Comments Carbon Dioxide Level (test code = 8-9) 26 22-29 [facility] HospitalAnion Frz5663-69-90 21:55:00* Test Item Value Reference Range Interpretation Comments Anion Gap (test code = 75013-9) 13.7 8-16 [facility] HospitalBlood Urea Bcrdwhdz6612-15-72 21:55:00* Test Item Value Reference Range Interpretation Comments Blood Urea Nitrogen (test code = 3094-0) 14 7-26 [facility] HospitalCreatinine2018-07-17 21:55:00* Test Item Value Reference Range Interpretation Comments Creatinine (test code = 2160-0) 0.85 0.57-1.11 [facility] HospitalBUN/Creatinine Swdhp6175-95-67 21:55:00* Test Item Value Reference Range Interpretation Comments BUN/Creatinine Ratio (test code = 3097-3) 16 6-25 [facility] HospitalEstimat Glomerular Filtration Rate 2017-08-26 21:55:00* Test Item Value Reference Range Interpretation Comments Estimat Glomerular Filtration Rate (test code = 73342-1) 60- >60 Ranges were taken from the National Kidney Disease Education Program and the [facility] Kid[facility] Foundation literature.Reference ranges:60 or greater: Bxrona52-23 ( for 3 consecutive months): Chronic kidney disease 15 or less: Kidney failureFormerly [facility] HospitalGlucose Pmawv6389-10-95 21:55:00* Test Item Value Reference Range Interpretation Comments Glucose Level (test code = ONW3080) 176 74-118 H [facility] HospitalCalcium Kjspz8752-26-37 21:55:00* Test Item Value Reference Range Interpretation Comments Calcium Level (test code = 01723-7) 9.6 8.4-10.2 [facility] HospitalTotal Nwfyufsva1737-58-43 21:55:00* Test Item Value Reference Range Interpretation Comments Total Bilirubin (test code = 1975-2) 0.2 0.2-1.2 [facility] HospitalAspartate Amino Transf (AST/SGOT) 2017-08-26 21:55:00* Test Item Value Reference Range Interpretation Comments Aspartate Amino Transf (AST/SGOT) (test code = Aspartate Amino Transf (AST/SGOT)) 16 5-34 [facility] HospitalAlanine Aminotransferase (ALT/SGPT) 2017-08-26 21:55:00* Test Item Value Reference Range Interpretation Comments Alanine Aminotransferase (ALT/SGPT) (test code = 1742-6) 24 0-55 [facility] HospitalTotal Awgsdge3964-99-26 21:55:00* Test Item Value Reference Range Interpretation Comments Total Protein (test code = 2885-2) 7.4 6.5-8.1 [facility] HospitalAlbumin2018-07-17 21:55:00* Test Item Value Reference Range Interpretation Comments Albumin (test code = 1751-7) 3.7 3.5-5.0 [facility] HospitalGlobulin2018-07-17 21:55:00* Test Item Value Reference Range Interpretation Comments Globulin (test code = 93217-7) 3.7 2.3-3.5 H [facility] HospitalAlbumin/Globulin Nkogv2251-27-04 21:55:00 * Test Item Value Reference Range Interpretation Comments Albumin/Globulin Ratio (test code = 1759-0) 1.0 0.8-2.0 [facility] HospitalAlkaline Vodrfycqnht4349-71-29 21:55:00* Test Item Value Reference Range Interpretation Comments Alkaline Phosphatase (test code = 6768-6) 87 40-150 [facility] HospitalAmylase Tzoni4854-23-27 21:55:00* Test Item Value Reference Range Interpretation Comments Amylase Level (test code = 1798-8) 93 25-125 [facility] HospitalLipase2018-07-17 21:55:00* Test Item Value Reference Range Interpretation Comments Lipase (test code = 3040-3) 165 8-78 H [facility] HospitalUrine KDW8281-72-24 21:52:00* Test Item Value Reference Range Interpretation Comments Urine WBC (test code = 5821-4) 6-10 0-5 H [facility] HospitalUrine GSR6301-97-29 21:52:00* Test Item Value Reference Range Interpretation Comments Urine RBC (test code = 11563-5) 6-10 0-5 H [facility] HospitalUrine Vrfvmnkd2208-67-24 21:52:00* Test Item Value Reference Range Interpretation Comments Urine Bacteria (test code = 73828-7) MANY NONE H [facility] HospitalUrine Epithelial Bppng5647-15-99 21:52:00 * Test Item Value Reference Range Interpretation Comments Urine Epithelial Cells (test code = 97062-2) FEW NONE [facility] HospitalUrine Hyaline Jmgpx8719-32-34 21:52:00* Test Item Value Reference Range Interpretation Comments Urine Hyaline Casts (test code = 91357-2) 2-5 0-1 H [facility] HospitalUrine Raxib0096-88-87 21:52:00* Test Item Value Reference Range Interpretation Comments Urine Mucus (test code = 8247-9) FEW RARE H [facility] HospitalUrine Hyaline Wuxmx9451-62-56 21:52:00* Test Item Value Reference Range Interpretation Comments Urine Hyaline Casts (test code = 68849-1) 2-5 0-1 H [facility] HospitalUrine Ksomd4698-15-14 21:41:00* Test Item Value Reference Range Interpretation Comments Urine Color (test code = 5778-6) YELLOW YELLOW [facility] HospitalUrine Nmuzwxx3426-92-03 21:41:00* Test Item Value Reference Range Interpretation Comments Urine Clarity (test code = 85507-1) CLEAR CLEAR [facility] HospitalUrine Specific Xajpoow8186-75-41 21:41:00 * Test Item Value Reference Range Interpretation Comments Urine Specific [place] (test code = 5811-5) 1.025 1.010-1.02 5 [facility] HospitalUrine eI5730-83-32 21:41:00* Test Item Value Reference Range Interpretation Comments Urine pH (test code = 16048-1) 6 5-7 [facility] HospitalUrine Leukocyte Ldbdsgtm6955-78-46 21:41:00* Test Item Value Reference Range Interpretation Comments Urine Leukocyte Esterase (test code = 5799-2) NEGATIVE NEGATIVE [facility] HospitalUrine Ijixzzg5235-08-72 21:41:00* Test Item Value Reference Range Interpretation Comments Urine Nitrite (test code = 22959-4) POSITIVE NEGATIVE H [facility] HospitalUrine Bmjnwia5824-87-42 21:41:00* Test Item Value Reference Range Interpretation Comments Urine Protein (test code = 5804-0) NEGATIVE NEGATIVE [facility] HospitalUrine Glucose (UA)2017-08-26 21:41:00* Test Item Value Reference Range Interpretation Comments Urine Glucose (UA) (test code = 2349-9) NEGATIVE NEGATIVE [facility] HospitalUrine Xnrterr1587-37-46 21:41:00* Test Item Value Reference Range Interpretation Comments Urine Ketones (test code = 74159-8) NEGATIVE NEGATIVE [facility] HospitalUrine Vvgemzblhkwf3079-60-95 21:41:00* Test Item Value Reference Range Interpretation Comments Urine Urobilinogen (test code = 39839-6) 0.2 0.2-1 [facility] HospitalUrine Jrqfxyjff8202-67-31 21:41:00* Test Item Value Reference Range Interpretation Comments Urine Bilirubin (test code = 1978-6) NEGATIVE NEGATIVE [facility] HospitalUrine Jxhdc8243-21-71 21:41:00* Test Item Value Reference Range Interpretation Comments Urine Blood (test code = 11902-3) TRACE NEGATIVE H [facility] HospitalWhite Blood Gqlpj9276-01-53 21:37:00* Test Item Value Reference Range Interpretation Comments White Blood Count (test code = 6690-2) 12.06 4.8-10.8 H [facility] HospitalRed Blood Zcodx0580-12-56 21:37:00* Test Item Value Reference Range Interpretation Comments Red Blood Count (test code = 789-8) 4.43 3.6-5.1 [facility] HospitalHemoglobin2018-07-17 21:37:00* Test Item Value Reference Range Interpretation Comments Hemoglobin (test code = 55724-7) 13.3 12.0-16.0 [facility] HospitalHematocrit2018-07-17 21:37:00* Test Item Value Reference Range Interpretation Comments Hematocrit (test code = 4544-3) 39.2 34.2-44.1 [facility] HospitalMean Corpuscular Zrkvpg7306-76-25 21:37:00* Test Item Value Reference Range Interpretation Comments Mean Corpuscular Volume (test code = 787-2) 88.5 81-99 [facility] HospitalMean Corpuscular Hikdcttpcj7489-15-79 21:37:00* Test Item Value Reference Range Interpretation Comments Mean Corpuscular Hemoglobin (test code = 785-6) 30.0 28-32 [facility] HospitalMean Corpuscular Hemoglobin Concent 2017-08-26 21:37:00* Test Item Value Reference Range Interpretation Comments Mean Corpuscular Hemoglobin Concent (test code = 786-4) 33.9 31-35 [facility] HospitalRed Cell Distribution Yejwd1198-16-52 21:37:00* Test Item Value Reference Range Interpretation Comments Red Cell Distribution Width (test code = 77711-3) 13.2 11.7 -14.4 [facility] HospitalPlatelet Xavld0571-17-47 21:37:00* Test Item Value Reference Range Interpretation Comments Platelet Count (test code = 777-3) 344 140-360 [facility] HospitalNeutrophils (%) (Auto)2017-08-26 21:37:00 * Test Item Value Reference Range Interpretation Comments Neutrophils (%) (Auto) (test code = 41729-6) 63.0 38.7-80.0 [facility] HospitalLymphocytes (%) (Auto)2017-08-26 21:37:00 * Test Item Value Reference Range Interpretation Comments Lymphocytes (%) (Auto) (test code = 736-9) 27.3 18.0-39.1 [facility] HospitalMonocytes (%) (Auto)2017-08-26 21:37:00* Test Item Value Reference Range Interpretation Comments Monocytes (%) (Auto) (test code = 5905-5) 6.1 4.4-11.3 [facility] HospitalEosinophils (%) (Auto)2017-08-26 21:37:00 * Test Item Value Reference Range Interpretation Comments Eosinophils (%) (Auto) (test code = 713-8) 2.4 0.0-6.0 [facility] HospitalBasophils (%) (Auto)2017-08-26 21:37:00* Test Item Value Reference Range Interpretation Comments Basophils (%) (Auto) (test code = 706-2) 0.9 0.0-1.0 [facility] HospitalIM GRANULOCYTES %2017-08-26 21:37:00* Test Item Value Reference Range Interpretation Comments IM GRANULOCYTES % (test code = IM GRANULOCYTES %) 0.3 0.0- 1.0 [facility] HospitalNeutrophils # (Auto)2017-08-26 21:37:00* Test Item Value Reference Range Interpretation Comments Neutrophils # (Auto) (test code = 751-8) 7.6 2.1-6.9 H [facility] HospitalLymphocytes # (Auto)2017-08-26 21:37:00* Test Item Value Reference Range Interpretation Comments Lymphocytes # (Auto) (test code = 21384-6) 3.3 1.0-3.2 H [facility] HospitalMonocytes # (Auto)2017-08-26 21:37:00* Test Item Value Reference Range Interpretation Comments Monocytes # (Auto) (test code = 742-7) 0.7 0.2-0.8 [facility] HospitalEosinophils # (Auto)2017-08-26 21:37:00* Test Item Value Reference Range Interpretation Comments Eosinophils # (Auto) (test code = 711-2) 0.3 0.0-0.4 [facility] HospitalBasophils # (Auto)2017-08-26 21:37:00* Test Item Value Reference Range Interpretation Comments Basophils # (Auto) (test code = 704-7) 0.1 0.0-0.1 [facility] HospitalAbsolute Immature Granulocyte (auto 2017-08-26 21:37:00* Test Item Value Reference Range Interpretation Comments Absolute Immature Granulocyte (auto (lucía t code = Absolute Immature Granulocyte (auto) 0.04 0-0.1 [facility] HospitalBedside Fnhdrie1131-41-02 12:14:00* Test Item Value Reference Range Interpretation Comments Bedside Glucose (test code = 26319-1) 112 70-120 Meter ID: [id number] [facility] HospitalCHEST 2 VIEWS [place] [address] Patient Name: STEPHEN MUKHERJEE MR #: [id number] : 1960 Age/Sex: 56/F Req #: [id number] [facility] Physician: Ordered by: LESLIE ISIDRO MD Report #: [id number] Location: [facility]/ d: Procedure: [id number] DX/CHEST 2 VIEWS Exam Date: 11/07/16 Exam Time: 1215 REPORT STATUS: Signed PROCEDURE: CHEST 2 VIEWS TECHNIQUE: PA and lateral chest INDICATION: Preoperative evaluation for left knee surgery COMPARISON: [facility], DX, CHEST 2 VIEWS - [facility], 05/09/2016, 13:09. FINDINGS: The lungs are clear and symmetrically inflated. No pleural effusions. Normal hea rt size, mediastinal contour and central vasculature. Intact skeleton. Cholec ystectomy clips. CONCLUSION: Normal chest. Dictated by : Andrew Reynolds M.D. on 11/07/2016 at 14:18 Electronically approved by: Andrew Reynolds M.D. on 11/07/2016 at 14:18 Dictated By: ANDREW REYNOLDS MD 1 418 Transcribed By: CORTNEY on 11/07/16 8198 COPY TO: LESLIE ISIDRO MD
== END 2019-11-14 19:05 | disposition home or self-care (01) ==
LOC: ER 19:00
DX: H01.003 Unspecified blepharitis right eye, unspecified eyelid (principal); L03.211 Cellulitis of face; I10 Essential (primary) hypertension; E11.9 Type 2 diabetes mellitus without complications; E78.5 Hyperlipidemia, unspecified; M79.7 Fibromyalgia; Z96.652 Presence of left artificial knee joint
CPT/HCPCS: 99282

== ENCOUNTER 2019-12-04 18:11 | Inpatient (IN) | payer OTHER ==
[~2019-12-04] VITALS: Ht 162.6 cm; Wt 96.6 kg
[2019-12-04] MEDS ORDERED: ONDANSETRON HCL INJ 2MG/ML 2ML 2 MG/ML VIAL IV STA (18:57)
[2019-12-04] MEDS ORDERED: SODIUM CHLORIDE 0.9% 1000ML 1,000 ML IV STA (18:57)
[2019-12-04] MEDS ORDERED: MORPHINE SULFATE 5 MG/ML VIAL IV ONE (19:00)
[2019-12-04 19:05] LABS: BASOPHILS # (AUTO) 0.1 (0.0-0.1); EOSINOPHILS # (AUTO) 0.2 (0.0-0.4); EOSINOPHILS % 1.5 % (0.0-6.0); HEMATOCRIT 42.9 % (34.2-44.1); HEMOGLOBIN 14.1 g/dL (12.0-16.0); LYMPHOCYTES # (AUTO) 3.5 (1.0-3.2); LYMPHOCYTES % 30.2 % (18.0-39.1); MEAN CORPUSCULAR HEMOGLOBIN 29.4 pg (28-32); MEAN CORPUSCULAR HGB CONC 32.9 g/dL (31-35); MEAN CORPUSCULAR VOLUME 89.6 fL (81-99); MONOCYTES # (AUTO) 0.6 (0.2-0.8); MONOCYTES % 5.3 % (4.4-11.3); NEUTROPHILS # (AUTO) 7.1 (2.1-6.9); NEUTROPHILS % 61.6 % (38.7-80.0); PLATELET COUNT 317 x10e3/uL (140-360); RED BLOOD COUNT 4.79 x10e6/uL (3.6-5.1); RED CELL DISTRIBUTION WIDTH 12.9 % (11.7-14.4)
[2019-12-04] MEDS ORDERED: MORPHINE SULFATE 2 MG/ML SYR 1ML ONE (19:25)
[2019-12-04 19:29] LABS: BILIRUBIN,URINE NEGATIVE (NEGATIVE); CLARITY,URINE HAZY (CLEAR); COLOR,URINE YELLOW (YELLOW); KETONES,URINE NEGATIVE (NEGATIVE); LEUKOCYTE ESTERASE ,URINE NEGATIVE (NEGATIVE); NITRITE,URINE NEGATIVE (NEGATIVE); PROTEIN,URINE DIPSTICK NEGATIVE (NEGATIVE); URINE UROBILINOGEN 0.2 mg/dL (0.2 - 1)
[2019-12-04 19:36] LABS: BACTERIA,URINE FEW /HPF; EPITHELIAL CELLS,URINE FEW /LPF; WBC,URINE (MAN) 21-50 /HPF (0-5)
[2019-12-04 20:18] LABS: ALANINE AMINOTRANSFERASE 33 IU/L (0-55); ALBUMIN 4.1 g/dL (3.5-5.0); ALBUMIN/GLOBULIN RATIO 1.1 (0.8-2.0); ALKALINE PHOSPHATASE 125 IU/L (40-150); ANION GAP 17.8 mmol/L (8-16); BLOOD UREA NITROGEN 12 mg/dL (7-26); BUN/CREATININE RATIO 13 (6-25); CALCIUM 9.9 mg/dL (8.4-10.2); CARBON DIOXIDE 23 mmol/L (22-29); CHLORIDE 103 mmol/L (98-107); CREATINE KINASE 104 IU/L (29-168); CREATININE, SERUM 0.93 mg/dL (0.57-1.11); EST GLOMERULAR FILTRATION RATE > 60 ML/MIN (60-); GLUCOSE 370 mg/dL (74-118); POTASSIUM 3.8 mmol/L (3.5-5.1); SODIUM 140 mmol/L (136-145)
[2019-12-04] MEDS ORDERED: AZITHROMYCIN 500MG/NS 250 ML 250 ML IV STA (20:32)
[2019-12-04] MEDS: CEFTRIAXONE SOD 1 GM/NS 50 ML 50 ML IV ONE ×2 (20:35→20:45)
[2019-12-04] MEDS ORDERED: DEXTROSE 50% SYRINGE 50 ML IV PRN (22:00)
[2019-12-04] MEDS: INSULIN REGULAR, HUMAN 100 UNIT/1 ML 3ML VIAL SQ SCH (22:10)
[2019-12-04 23:30] VITALS: BP 141/82
[2019-12-04] MEDS: MORPHINE SULFATE 2 MG/ML SYR 1ML IV PRN (23:54)
[2019-12-05] VITALS (8 sets, daily range): BP systolic 120–144; BP diastolic 67–97
[2019-12-05] MEDS: MORPHINE SULFATE 2 MG/ML SYR 1ML IV PRN ×5 (03:46→20:30)
[2019-12-05 06:11] LABS: BASOPHILS # (AUTO) 0.1 (0.0-0.1); BASOPHILS % 0.9 % (0.0-1.0); EOSINOPHILS # (AUTO) 0.2 (0.0-0.4); EOSINOPHILS % 2.2 % (0.0-6.0); HEMATOCRIT 36.1 % (34.2-44.1); HEMOGLOBIN 12.1 g/dL (12.0-16.0); LYMPHOCYTES # (AUTO) 3.8 (1.0-3.2); LYMPHOCYTES % 35.1 % (18.0-39.1); MEAN CORPUSCULAR HEMOGLOBIN 31.3 pg (28-32); MEAN CORPUSCULAR HGB CONC 33.5 g/dL (31-35); MEAN CORPUSCULAR VOLUME 93.3 fL (81-99); MONOCYTES # (AUTO) 0.7 (0.2-0.8); MONOCYTES % 6.2 % (4.4-11.3); NEUTROPHILS % 55.2 % (38.7-80.0); PLATELET COUNT 228 x10e3/uL (140-360); RED BLOOD COUNT 3.87 x10e6/uL (3.6-5.1); RED CELL DISTRIBUTION WIDTH 13.1 % (11.7-14.4)
[2019-12-05 08:21] LABS: ALANINE AMINOTRANSFERASE 31 IU/L (0-55); ALBUMIN 3.5 g/dL (3.5-5.0); ALBUMIN/GLOBULIN RATIO 1.3 (0.8-2.0); ALKALINE PHOSPHATASE 103 IU/L (40-150); ANION GAP 11.6 mmol/L (8-16); BLOOD UREA NITROGEN 12 mg/dL (7-26); BUN/CREATININE RATIO 15 (6-25); CALCIUM 8.5 mg/dL (8.4-10.2); CARBON DIOXIDE 25 mmol/L (22-29); CHLORIDE 105 mmol/L (98-107); EST GLOMERULAR FILTRATION RATE > 60 ML/MIN (60-); GLUCOSE 302 mg/dL (74-118); POTASSIUM 3.6 mmol/L (3.5-5.1); SODIUM 138 mmol/L (136-145)
[2019-12-05] MEDS ORDERED: SODIUM CHLORIDE 0.9% 250ML 250 ML ONE (08:22)
[2019-12-05] MEDS: CEFTRIAXONE SOD 1 GRAM/0.9% SOD CHL 50ML BAG IV SCH (08:28)
[2019-12-05 09:28] LABS: CREATINE KINASE MB < 1.00 ng/mL (0-4.3)
[2019-12-05 09:31] LABS: CREATINE KINASE 83 IU/L (29-168)
[2019-12-05] MEDS: LEVOFLOXACIN 750MG/D5W 150ML IV SCH (10:41)
[2019-12-05] MEDS: INSULIN REGULAR, HUMAN 100 UNIT/1 ML 3ML VIAL SQ SCH ×3 (11:42→20:41)
[2019-12-05] MEDS ORDERED: ONDANSETRON HCL 4 MG ORAL DISINTEGRATING TAB PO PRN (12:30)
[2019-12-05] MEDS: HYDROCODONE/APAP 10MG-325MG TAB PO PRN (14:26)
[2019-12-05] MEDS: TIZANIDINE HCL 4 MG TAB PO SCH ×2 (14:26→20:29)
[2019-12-05] MEDS: GABAPENTIN 300 MG CAP PO SCH ×2 (14:26→20:29)
[2019-12-05] MEDS: ACETAMIN/BUTALBITAL/CAFFEINE TAB PO SCH ×3 (14:26→22:06)
[2019-12-05] MEDS ORDERED: BISACODYL 5 MG TAB EC PO ONE (14:45)
[2019-12-05] MEDS ORDERED: MAGNESIUM HYDROXIDE 30 ML UDC PO ONE (14:45)
[2019-12-05] MEDS: SENNA-S TABLET PO SCH (16:27)
[2019-12-05 16:28] LABS: CREATINE KINASE 80 IU/L (29-168)
[2019-12-05 16:29] LABS: CREATINE KINASE MB < 1.00 ng/mL (0-4.3)
[2019-12-05] MEDS: POTASSIUM CHLORIDE 20 MEQ TAB CR PO SCH (16:38)
[2019-12-05] MEDS: INSULIN ASPART 70/30 100 UNITS/ML VIAL SC SCH (17:45)
[2019-12-05] MEDS: ATORVASTATIN 20 MG TAB PO SCH (20:29)
[2019-12-06] VITALS (8 sets, daily range): BP systolic 101–150; BP diastolic 52–85
[2019-12-06] MEDS: ACETAMIN/BUTALBITAL/CAFFEINE TAB PO SCH ×6 (01:09→22:19)
[2019-12-06] MEDS: HYDROCODONE/APAP 10MG-325MG TAB PO PRN (01:10)
[2019-12-06] MEDS: MORPHINE SULFATE 2 MG/ML SYR 1ML IV PRN ×3 (03:24→20:06)
[2019-12-06 06:38] LABS: BASOPHILS # (AUTO) 0.1 (0.0-0.1); BASOPHILS % 1.3 % (0.0-1.0); EOSINOPHILS # (AUTO) 0.3 (0.0-0.4); EOSINOPHILS % 2.8 % (0.0-6.0); HEMATOCRIT 36.7 % (34.2-44.1); HEMOGLOBIN 11.9 g/dL (12.0-16.0); LYMPHOCYTES # (AUTO) 3.8 (1.0-3.2); LYMPHOCYTES % 41.4 % (18.0-39.1); MEAN CORPUSCULAR HEMOGLOBIN 29.9 pg (28-32); MEAN CORPUSCULAR HGB CONC 32.4 g/dL (31-35); MEAN CORPUSCULAR VOLUME 92.2 fL (81-99); MONOCYTES # (AUTO) 0.6 (0.2-0.8); MONOCYTES % 6.7 % (4.4-11.3); NEUTROPHILS # (AUTO) 4.4 (2.1-6.9); NEUTROPHILS % 47.6 % (38.7-80.0); PLATELET COUNT 254 x10e3/uL (140-360); RED BLOOD COUNT 3.98 x10e6/uL (3.6-5.1); RED CELL DISTRIBUTION WIDTH 12.8 % (11.7-14.4)
[2019-12-06 07:04] LABS: ALANINE AMINOTRANSFERASE 28 IU/L (0-55); ALBUMIN 3.5 g/dL (3.5-5.0); ALBUMIN/GLOBULIN RATIO 1.3 (0.8-2.0); ALKALINE PHOSPHATASE 97 IU/L (40-150); ANION GAP 11.8 mmol/L (8-16); BLOOD UREA NITROGEN 12 mg/dL (7-26); BUN/CREATININE RATIO 16 (6-25); CALCIUM 8.8 mg/dL (8.4-10.2); CARBON DIOXIDE 28 mmol/L (22-29); CHLORIDE 104 mmol/L (98-107); CREATININE, SERUM 0.73 mg/dL (0.57-1.11); EST GLOMERULAR FILTRATION RATE > 60 ML/MIN (60-); GLUCOSE 120 mg/dL (74-118); POTASSIUM 3.8 mmol/L (3.5-5.1); SODIUM 140 mmol/L (136-145)
[2019-12-06] MEDS: INSULIN REGULAR, HUMAN 100 UNIT/1 ML 3ML VIAL SQ SCH ×4 (07:30→21:16)
[2019-12-06] MEDS: INSULIN ASPART 70/30 100 UNITS/ML VIAL SC SCH ×3 (07:30→16:30)
[2019-12-06] MEDS: LEVOFLOXACIN 750MG/D5W 150ML IV SCH (08:20)
[2019-12-06] MEDS: PANTOPRAZOLE SOD 40 MG TABEC PO SCH (08:20)
[2019-12-06] MEDS: INSULIN GLARGINE 100 UNITS/ML VIAL SQ SCH ×2 (08:45→21:17)
[2019-12-06] MEDS: ALBUTEROL/IPRATROPIUM 3 ML NEB NEB SCH ×3 (09:00→19:42)
[2019-12-06] MEDS: Insulin Degludec (Tresiba Flextouch U-100) SC SCH (09:00)
[2019-12-06] MEDS: SENNA-S TABLET PO SCH ×2 (09:01→17:49)
[2019-12-06] MEDS: CLOPIDOGREL BISULFATE 75 MG TAB PO SCH (09:01)
[2019-12-06] MEDS: MELOXICAM 7.5 MG TAB PO SCH (09:01)
[2019-12-06] MEDS: GABAPENTIN 300 MG CAP PO SCH ×3 (09:01→21:14)
[2019-12-06] MEDS: ESCITALOPRAM OXALATE 10 MG TAB PO SCH (09:01)
[2019-12-06] MEDS: AMLODIPINE BESYLATE 5 MG TAB PO SCH (09:01)
[2019-12-06] MEDS: POTASSIUM CHLORIDE 20 MEQ TAB CR PO SCH ×2 (09:01→17:49)
[2019-12-06] MEDS: TIZANIDINE HCL 4 MG TAB PO SCH ×3 (09:02→21:14)
[2019-12-06] MEDS: CEFTRIAXONE SOD 1 GRAM/0.9% SOD CHL 50ML BAG IV SCH (09:30)
[2019-12-06] MEDS: ATORVASTATIN 20 MG TAB PO SCH (21:14)
[2019-12-07 00:40] VITALS: BP 157/65
[2019-12-07] MEDS: ALBUTEROL/IPRATROPIUM 3 ML NEB NEB SCH ×3 (01:50→13:44)
[2019-12-07] MEDS: ACETAMIN/BUTALBITAL/CAFFEINE TAB PO SCH ×5 (02:11→14:21)
[2019-12-07] MEDS: MORPHINE SULFATE 2 MG/ML SYR 1ML IV PRN ×2 (03:29→07:35)
[2019-12-07 04:00] VITALS: BP 141/83
[2019-12-07 06:53] LABS: BASOPHILS # (AUTO) 0.1 (0.0-0.1); EOSINOPHILS # (AUTO) 0.2 (0.0-0.4); EOSINOPHILS % 1.7 % (0.0-6.0); HEMATOCRIT 35.8 % (34.2-44.1); HEMOGLOBIN 11.7 g/dL (12.0-16.0); LYMPHOCYTES # (AUTO) 3.4 (1.0-3.2); LYMPHOCYTES % 36.7 % (18.0-39.1); MEAN CORPUSCULAR HEMOGLOBIN 29.5 pg (28-32); MEAN CORPUSCULAR HGB CONC 32.7 g/dL (31-35); MEAN CORPUSCULAR VOLUME 90.2 fL (81-99); MONOCYTES # (AUTO) 0.6 (0.2-0.8); MONOCYTES % 6.8 % (4.4-11.3); NEUTROPHILS % 53.5 % (38.7-80.0); PLATELET COUNT 265 x10e3/uL (140-360); RED BLOOD COUNT 3.97 x10e6/uL (3.6-5.1); RED CELL DISTRIBUTION WIDTH 12.7 % (11.7-14.4)
[2019-12-07 07:16] LABS: ANION GAP 11.6 mmol/L (8-16); BLOOD UREA NITROGEN 8 mg/dL (7-26); BUN/CREATININE RATIO 11 (6-25); CALCIUM 8.9 mg/dL (8.4-10.2); CARBON DIOXIDE 26 mmol/L (22-29); CHLORIDE 107 mmol/L (98-107); CREATININE, SERUM 0.73 mg/dL (0.57-1.11); EST GLOMERULAR FILTRATION RATE > 60 ML/MIN (60-); GLUCOSE 246 mg/dL (74-118); POTASSIUM 3.6 mmol/L (3.5-5.1); SODIUM 141 mmol/L (136-145)
[2019-12-07 08:09] VITALS: BP 131/90
[2019-12-07] MEDS: LEVOFLOXACIN 750MG/D5W 150ML IV SCH (08:25)
[2019-12-07] MEDS: PANTOPRAZOLE SOD 40 MG TABEC PO SCH (08:39)
[2019-12-07] MEDS: POTASSIUM CHLORIDE 20 MEQ TAB CR PO SCH (08:40)
[2019-12-07] MEDS: MELOXICAM 7.5 MG TAB PO SCH (08:40)
[2019-12-07] MEDS: ESCITALOPRAM OXALATE 10 MG TAB PO SCH (08:40)
[2019-12-07] MEDS: GABAPENTIN 300 MG CAP PO SCH (08:41)
[2019-12-07] MEDS: CLOPIDOGREL BISULFATE 75 MG TAB PO SCH (08:41)
[2019-12-07] MEDS: SENNA-S TABLET PO SCH (08:41)
[2019-12-07] MEDS: AMLODIPINE BESYLATE 5 MG TAB PO SCH (08:41)
[2019-12-07] MEDS: Insulin Degludec (Tresiba Flextouch U-100) SC SCH (08:42)
[2019-12-07] MEDS: TIZANIDINE HCL 4 MG TAB PO SCH (08:42)
[2019-12-07 08:48] VITALS: BP 131/90
[2019-12-07] MEDS: INSULIN ASPART 70/30 100 UNITS/ML VIAL SC SCH ×2 (10:00→12:00)
[2019-12-07] MEDS: INSULIN GLARGINE 100 UNITS/ML VIAL SQ SCH (10:01)
[2019-12-07] MEDS: INSULIN REGULAR, HUMAN 100 UNIT/1 ML 3ML VIAL SQ SCH ×2 (10:01→12:30)
[2019-12-07] MEDS: CEFTRIAXONE SOD 1 GRAM/0.9% SOD CHL 50ML BAG IV SCH (10:15)
[2019-12-07] MEDS: HYDROCODONE/APAP 10MG-325MG TAB PO PRN (11:26)
[2019-12-07 12:21] VITALS: BP 150/73
[2019-12-07 15:54] VITALS: BP 148/71
[2019-12-08] MEDS ORDERED: LEVOFLOXACIN 250 MG TAB PO SCH (09:00)
== END 2019-12-07 16:14 | disposition home or self-care (01) | DRG 178 ==
LOC: ER 18:28 → ERHOLD 21:35 → MED/SURG3 22:36
PROVIDERS: ADMIT Internal Medicine; ATTEND Internal Medicine
DX: J15.6 Pneumonia due to other Gram-negative bacteria (principal); N39.0 Urinary tract infection, site not specified; E66.9 Obesity, unspecified; F17.210 Nicotine dependence, cigarettes, uncomplicated; Z91.041 Radiographic dye allergy status; Z91.013 Allergy to seafood; Z68.36 Body mass index [BMI] 36.0-36.9, adult; E11.42 Type 2 diabetes mellitus with diabetic polyneuropathy; E78.5 Hyperlipidemia, unspecified; I11.9 Hypertensive heart disease without heart failure; Z11.59 Encounter for screening for other viral diseases; Z79.4 Long term (current) use of insulin
CPT/HCPCS: 36415; 71045; 71046; 74176; 80048; 80053; 81001; 82550; 82553; 82948; 83605; 83690; 84484; 85025; 87040; 94640; 96372; 99284; J0456; J0696; J1815; J1817; J2270; J2405; J7030; J7050; U0002

== ENCOUNTER 2020-01-04 07:39 | Inpatient (IN) | payer OTHER ==
[~2020-01-04] VITALS: Ht 160 cm; Wt 98.9 kg
[2020-01-04 08:17] LABS: BASOPHILS # (AUTO) 0.1 (0.0-0.1); BASOPHILS % 0.9 % (0.0-1.0); EOSINOPHILS # (AUTO) 0.1 (0.0-0.4); EOSINOPHILS % 0.7 % (0.0-6.0); HEMATOCRIT 41.7 % (34.2-44.1); HEMOGLOBIN 13.6 g/dL (12.0-16.0); LYMPHOCYTES # (AUTO) 3.7 (1.0-3.2); LYMPHOCYTES % 30.1 % (18.0-39.1); MEAN CORPUSCULAR HEMOGLOBIN 29.6 pg (28-32); MEAN CORPUSCULAR HGB CONC 32.6 g/dL (31-35); MEAN CORPUSCULAR VOLUME 90.7 fL (81-99); MONOCYTES # (AUTO) 0.8 (0.2-0.8); MONOCYTES % 6.9 % (4.4-11.3); NEUTROPHILS # (AUTO) 7.5 (2.1-6.9); NEUTROPHILS % 60.9 % (38.7-80.0); PLATELET COUNT 303 x10e3/uL (140-360); RED CELL DISTRIBUTION WIDTH 12.7 % (11.7-14.4)
[2020-01-04 08:39] LABS: ALBUMIN/GLOBULIN RATIO 1.1 (0.8-2.0); CALCIUM 8.7 mg/dL (8.4-10.2); CREATININE, SERUM 1.23 mg/dL (0.57-1.11); MAGNESIUM 1.6 MG/DL (1.3-2.1)
[2020-01-04 08:41] LABS: INR 0.93; PARTIAL THROMBOPLASTIN TIME 24.4 seconds (23.8-35.5); PROTHROMBIN TIME 12.9 seconds (11.9-14.5)
[2020-01-04] MEDS ORDERED: SODIUM CHLORIDE 0.9% 1000ML 1,000 ML IV STA (08:46)
[2020-01-04 08:47] LABS: CREATINE KINASE MB 0.9 ng/mL (0-5.0)
[2020-01-04 08:49] LABS: BILIRUBIN,URINE NEGATIVE (NEGATIVE); CLARITY,URINE CLEAR (CLEAR); COLOR,URINE YELLOW (YELLOW); KETONES,URINE NEGATIVE (NEGATIVE); LEUKOCYTE ESTERASE ,URINE NEGATIVE (NEGATIVE); NITRITE,URINE NEGATIVE (NEGATIVE); PROTEIN,URINE DIPSTICK NEGATIVE (NEGATIVE); URINE UROBILINOGEN 0.2 mg/dL (0.2 - 1)
[2020-01-04 09:00] LABS: BACTERIA,URINE FEW /HPF; EPITHELIAL CELLS,URINE FEW /LPF; RBC,URINE 0-5 /HPF (0-5); TRANSITIONAL EPI CELLS,URINE FEW; YEAST,URINE FEW
[2020-01-04] MEDS ORDERED: INSULIN REGULAR, HUMAN 100 UNIT/1 ML 3ML VIAL IV ONE (09:00)
[2020-01-04] MEDS ORDERED: ONDANSETRON HCL INJ 2MG/ML 2ML 2 MG/ML VIAL IV STA (09:07)
[2020-01-04] MEDS ORDERED: DEXAMETHASONE SOD PHOS 10 MG/1 ML VIAL IV ONE (09:15)
[2020-01-04] MEDS ORDERED: ALBUTEROL SULFATE HFA 8GM INHALATION AEROSOL INH PRN (09:15)
[2020-01-04] MEDS ORDERED: CEFTRIAXONE SOD 1 GM/NS 50 ML 50 ML IV SCH (09:15)
[2020-01-04] MEDS ORDERED: ENOXAPARIN SODIUM INJ 100 MG/ML SYR SC ONE (09:15)
[2020-01-04] MEDS ORDERED: ALBUTEROL/IPRATROPIUM 3 ML NEB NEB ONE (10:00)
[2020-01-04] MEDS ORDERED: DEXTROSE 50% SYRINGE 50 ML IV PRN (10:00)
[2020-01-04] MEDS ORDERED: SODIUM CHLORIDE 0.9% 1000ML 1,000 ML IV SCH (10:00)
[2020-01-04] MEDS ORDERED: ONDANSETRON HCL INJ 2MG/ML 2ML 2 MG/ML VIAL IV PRN (10:00)
[2020-01-04] MEDS ORDERED: ALBUTEROL/IPRATROPIUM 3 ML NEB NEB PRN (10:00)
[2020-01-04 11:25] VITALS: BP 122/69
[2020-01-04 11:30] VITALS: BP 122/69
[2020-01-04] MEDS ORDERED: HYDROCORTISONE SOD SUCCINATE 100 MG VIAL IV ONE ×2 (12:30→17:00)
[2020-01-04] MEDS: INSULIN LISPRO 100 UNIT/1 ML 3ML VIAL SQ SCH ×3 (12:35→18:00)
[2020-01-04] MEDS: AZITHROMYCIN 500MG/NS 250 ML 250 ML IV SCH (12:35)
[2020-01-04] MEDS: ALBUTEROL/IPRATROPIUM 3 ML NEB NEB SCH ×3 (13:00→23:45)
[2020-01-04 13:10] LABS: CREATINE KINASE 86 IU/L (29-168)
[2020-01-04] MEDS ORDERED: ONDANSETRON HCL 4 MG ORAL DISINTEGRATING TAB PO PRN (13:30)
[2020-01-04] MEDS: INSULIN GLARGINE 100 UNITS/ML VIAL SQ SCH ×2 (13:58→21:46)
[2020-01-04] MEDS: HYDROCODONE/APAP 10MG-325MG TAB PO PRN ×2 (13:59→21:16)
[2020-01-04 14:43] LABS: ABG HCO3 24 mmol/L (22-26); ABG PCO2 40 mmHg (35-45); ABG PH 7.39 (7.35-7.45); ABG PO2 62 mmHg (80-105); ABG TCO2 25
[2020-01-04] MEDS: GABAPENTIN 300 MG CAP PO SCH ×2 (15:00→21:15)
[2020-01-04] MEDS: TIZANIDINE HCL 4 MG TAB PO SCH ×2 (15:00→21:15)
[2020-01-04] MEDS ORDERED: GABAPENTIN 600 MG PO SCH (15:00)
[2020-01-04 16:00] VITALS: BP 105/63
[2020-01-04] MEDS ORDERED: DIPHENHYDRAMINE HCL INJ 50 MG/ML VIAL IV ONE (16:30)
[2020-01-04] MEDS ORDERED: SODIUM CHLORIDE 0.9% 50ML 50 ML ONE (16:43)
[2020-01-04] MEDS ORDERED: IOPAMIDOL 370 MG/ML 200 ML INFUS..BTL INJ ONE (16:43)
[2020-01-04] MEDS: SUCRALFATE 1 GM TAB PO SCH (17:36)
[2020-01-04] MEDS: INSULIN ASPART 70/30 100 UNITS/ML VIAL SC SCH (17:57)
[2020-01-04] MEDS ORDERED: METAXALONE 800 MG PO SCH (18:00)
[2020-01-04] MEDS: DICYCLOMINE HCL 20 MG TAB PO SCH ×2 (18:03→21:15)
[2020-01-04] MEDS: METAXALONE 800 MG TAB PO SCH ×2 (18:04→21:15)
[2020-01-04 20:00] VITALS: BP 119/57
[2020-01-04 20:33] LABS: CREATINE KINASE MB 0.9 ng/mL (0-5.0)
[2020-01-04 21:00] VITALS: BP 119/57
[2020-01-04] MEDS ORDERED: ATORVASTATIN 20 MG TAB PO SCH (21:00)
[2020-01-04] MEDS: ATORVASTATIN 40 MG TAB PO SCH (21:15)
[2020-01-04] MEDS: ACETAMIN/BUTALBITAL/CAFFEINE TAB PO PRN (21:15)
[2020-01-05] VITALS (8 sets, daily range): BP systolic 107–158; BP diastolic 48–86
[2020-01-05] MEDS: ACETAMIN/BUTALBITAL/CAFFEINE TAB PO PRN ×3 (06:00→19:26)
[2020-01-05] MEDS: HYDROCODONE/APAP 10MG-325MG TAB PO PRN ×3 (06:10→19:26)
[2020-01-05 06:45] LABS: BASOPHILS % 0.2 % (0.0-1.0); HEMATOCRIT 36.5 % (34.2-44.1); HEMOGLOBIN 12.1 g/dL (12.0-16.0); LYMPHOCYTES % 17.9 % (18.0-39.1); MEAN CORPUSCULAR HEMOGLOBIN 29.7 pg (28-32); MEAN CORPUSCULAR HGB CONC 33.2 g/dL (31-35); MEAN CORPUSCULAR VOLUME 89.7 fL (81-99); MONOCYTES # (AUTO) 0.8 (0.2-0.8); MONOCYTES % 4.7 % (4.4-11.3); NEUTROPHILS # (AUTO) 12.8 (2.1-6.9); NEUTROPHILS % 76.7 % (38.7-80.0); PLATELET COUNT 285 x10e3/uL (140-360); RED BLOOD COUNT 4.07 x10e6/uL (3.6-5.1); RED CELL DISTRIBUTION WIDTH 12.3 % (11.7-14.4)
[2020-01-05 07:19] LABS: ALANINE AMINOTRANSFERASE 25 IU/L (0-55); ALBUMIN 3.8 g/dL (3.5-5.0); ALBUMIN/GLOBULIN RATIO 1.3 (0.8-2.0); ALKALINE PHOSPHATASE 114 IU/L (40-150); ANION GAP 13.4 mmol/L (8-16); BLOOD UREA NITROGEN 13 mg/dL (7-26); BUN/CREATININE RATIO 16 (6-25); CALCIUM 9.1 mg/dL (8.4-10.2); CARBON DIOXIDE 24 mmol/L (22-29); CHLORIDE 106 mmol/L (98-107); CREATININE, SERUM 0.83 mg/dL (0.57-1.11); EST GLOMERULAR FILTRATION RATE > 60 ML/MIN (60-); GLUCOSE 302 mg/dL (74-118); POTASSIUM 3.4 mmol/L (3.5-5.1); SODIUM 140 mmol/L (136-145)
[2020-01-05 07:42] LABS: CHOLESTEROL 125 MD/DL (0-199); HDL CHOLESTEROL 42 MG/DL (40-60); LDL CHOLESTEROL 65 MG/DL (60-130); TRIGLYCERIDES 89 MG/DL (0-149)
[2020-01-05] MEDS: ALBUTEROL/IPRATROPIUM 3 ML NEB NEB SCH ×3 (07:54→20:30)
[2020-01-05] MEDS: INSULIN ASPART 70/30 100 UNITS/ML VIAL SC SCH ×3 (08:11→17:30)
[2020-01-05] MEDS: INSULIN LISPRO 100 UNIT/1 ML 3ML VIAL SQ SCH ×4 (08:11→21:52)
[2020-01-05] MEDS: INSULIN GLARGINE 100 UNITS/ML VIAL SQ SCH ×2 (08:12→21:00)
[2020-01-05] MEDS ORDERED: POTASSIUM CHLORIDE 10MEQ EA PO ONE (08:15)
[2020-01-05] MEDS: CEFEPIME 1GM/NS 0.9% 50 ML 50 ML IV SCH ×2 (08:46→21:20)
[2020-01-05] MEDS: SUCRALFATE 1 GM TAB PO SCH ×3 (08:53→18:24)
[2020-01-05] MEDS: ESCITALOPRAM OXALATE 10 MG TAB PO SCH (08:54)
[2020-01-05] MEDS: DICYCLOMINE HCL 20 MG TAB PO SCH ×4 (08:54→21:20)
[2020-01-05] MEDS: ASPIRIN 81 MG ENTERIC COATED PO SCH (08:54)
[2020-01-05] MEDS: GABAPENTIN 300 MG CAP PO SCH ×3 (08:54→21:20)
[2020-01-05] MEDS: CLOPIDOGREL BISULFATE 75 MG TAB PO SCH (08:55)
[2020-01-05] MEDS: AMLODIPINE BESYLATE 5 MG TAB PO SCH (08:55)
[2020-01-05] MEDS: PANTOPRAZOLE SOD 40 MG TABEC PO SCH (08:55)
[2020-01-05] MEDS: METAXALONE 800 MG TAB PO SCH ×4 (08:55→21:21)
[2020-01-05] MEDS: TIZANIDINE HCL 4 MG TAB PO SCH ×3 (08:56→21:21)
[2020-01-05] MEDS ORDERED: NON-FORMULARY MEDICATION (Escitalopram Oxalate 20 MG) PO SCH (09:00)
[2020-01-05 13:20] LABS: CREATINE KINASE 88 IU/L (29-168)
[2020-01-05] MEDS: AZITHROMYCIN 500MG/NS 250 ML 250 ML IV SCH (13:50)
[2020-01-05] MEDS ORDERED: SODIUM CHLORIDE 0.9% 250ML 250 ML ONE (21:05)
[2020-01-05] MEDS: ATORVASTATIN 40 MG TAB PO SCH (21:20)
[2020-01-06] VITALS (8 sets, daily range): BP systolic 128–155; BP diastolic 54–78
[2020-01-06] MEDS: ALBUTEROL/IPRATROPIUM 3 ML NEB NEB SCH ×4 (01:10→19:40)
[2020-01-06 05:46] LABS: BASOPHILS # (AUTO) 0.1 (0.0-0.1); BASOPHILS % 0.7 % (0.0-1.0); EOSINOPHILS # (AUTO) 0.1 (0.0-0.4); EOSINOPHILS % 0.7 % (0.0-6.0); HEMATOCRIT 34.1 % (34.2-44.1); HEMOGLOBIN 11.2 g/dL (12.0-16.0); LYMPHOCYTES # (AUTO) 5.4 (1.0-3.2); LYMPHOCYTES % 35.3 % (18.0-39.1); MEAN CORPUSCULAR HEMOGLOBIN 29.6 pg (28-32); MEAN CORPUSCULAR HGB CONC 32.8 g/dL (31-35); MONOCYTES # (AUTO) 0.9 (0.2-0.8); MONOCYTES % 6.1 % (4.4-11.3); NEUTROPHILS # (AUTO) 8.6 (2.1-6.9); NEUTROPHILS % 56.7 % (38.7-80.0); PLATELET COUNT 268 x10e3/uL (140-360); RED BLOOD COUNT 3.79 x10e6/uL (3.6-5.1); RED CELL DISTRIBUTION WIDTH 12.9 % (11.7-14.4)
[2020-01-06] MEDS: ACETAMIN/BUTALBITAL/CAFFEINE TAB PO PRN ×3 (06:00→21:03)
[2020-01-06] MEDS: HYDROCODONE/APAP 10MG-325MG TAB PO PRN ×3 (06:00→21:03)
[2020-01-06 06:09] LABS: BLOOD UREA NITROGEN 13 mg/dL (7-26); BUN/CREATININE RATIO 18 (6-25); CALCIUM 8.6 mg/dL (8.4-10.2); CARBON DIOXIDE 25 mmol/L (22-29); CHLORIDE 111 mmol/L (98-107); CREATININE, SERUM 0.72 mg/dL (0.57-1.11); EST GLOMERULAR FILTRATION RATE > 60 ML/MIN (60-); GLUCOSE 86 mg/dL (74-118); SODIUM 144 mmol/L (136-145)
[2020-01-06] MEDS ORDERED: POTASSIUM CHLORIDE 20 MEQ TAB CR PO STA (08:01)
[2020-01-06] MEDS: INSULIN GLARGINE 100 UNITS/ML VIAL SQ SCH ×2 (08:10→21:00)
[2020-01-06] MEDS: INSULIN LISPRO 100 UNIT/1 ML 3ML VIAL SQ SCH ×4 (08:10→21:00)
[2020-01-06] MEDS: INSULIN ASPART 70/30 100 UNITS/ML VIAL SC SCH ×3 (08:10→17:19)
[2020-01-06] MEDS: CEFEPIME 1GM/NS 0.9% 50 ML 50 ML IV SCH ×2 (08:40→21:16)
[2020-01-06] MEDS: SUCRALFATE 1 GM TAB PO SCH ×3 (08:45→17:10)
[2020-01-06] MEDS: ASPIRIN 81 MG ENTERIC COATED PO SCH (08:49)
[2020-01-06] MEDS: DICYCLOMINE HCL 20 MG TAB PO SCH ×4 (08:49→21:01)
[2020-01-06] MEDS: ESCITALOPRAM OXALATE 10 MG TAB PO SCH (08:50)
[2020-01-06] MEDS: AMLODIPINE BESYLATE 5 MG TAB PO SCH (08:50)
[2020-01-06] MEDS: GABAPENTIN 300 MG CAP PO SCH ×3 (08:50→21:02)
[2020-01-06] MEDS: PANTOPRAZOLE SOD 40 MG TABEC PO SCH (08:51)
[2020-01-06] MEDS: CLOPIDOGREL BISULFATE 75 MG TAB PO SCH (08:51)
[2020-01-06] MEDS: METAXALONE 800 MG TAB PO SCH ×4 (08:51→21:02)
[2020-01-06] MEDS: TIZANIDINE HCL 4 MG TAB PO SCH ×3 (08:52→21:02)
[2020-01-06] MEDS ORDERED: POTASSIUM CHLORIDE 20 MEQ TAB CR PO ONE ×2 (10:00→12:00)
[2020-01-06] MEDS: AZITHROMYCIN 500MG/NS 250 ML 250 ML IV SCH (10:33)
[2020-01-06] MEDS ORDERED: ALBUTEROL/IPRATROPIUM 3 ML NEB ONE (13:08)
[2020-01-06] MEDS: KETOROLAC TROMETHAMINE 30 MG/ML VIAL IV PRN (17:05)
[2020-01-06] MEDS: ATORVASTATIN 40 MG TAB PO SCH (21:02)
[2020-01-07 00:04] VITALS: BP 100/72
[2020-01-07 04:00] VITALS: BP 120/63
[2020-01-07] MEDS: KETOROLAC TROMETHAMINE 30 MG/ML VIAL IV PRN ×2 (05:52→11:53)
[2020-01-07] MEDS: ALBUTEROL/IPRATROPIUM 3 ML NEB NEB SCH (07:36)
[2020-01-07 08:00] VITALS: BP 178/85
[2020-01-07] MEDS: INSULIN ASPART 70/30 100 UNITS/ML VIAL SC SCH ×2 (08:14→11:30)
[2020-01-07] MEDS: HYDROCODONE/APAP 10MG-325MG TAB PO PRN (08:14)
[2020-01-07] MEDS: INSULIN LISPRO 100 UNIT/1 ML 3ML VIAL SQ SCH ×2 (08:14→11:30)
[2020-01-07] MEDS: ACETAMIN/BUTALBITAL/CAFFEINE TAB PO PRN (08:15)
[2020-01-07] MEDS: GABAPENTIN 300 MG CAP PO SCH (08:17)
[2020-01-07] MEDS: AMLODIPINE BESYLATE 5 MG TAB PO SCH (08:17)
[2020-01-07] MEDS: CLOPIDOGREL BISULFATE 75 MG TAB PO SCH (08:17)
[2020-01-07] MEDS: METAXALONE 800 MG TAB PO SCH ×2 (08:18→11:53)
[2020-01-07] MEDS: ESCITALOPRAM OXALATE 10 MG TAB PO SCH (08:18)
[2020-01-07] MEDS: ASPIRIN 81 MG ENTERIC COATED PO SCH (08:18)
[2020-01-07] MEDS: DICYCLOMINE HCL 20 MG TAB PO SCH ×2 (08:18→11:53)
[2020-01-07] MEDS: CEFEPIME 1GM/NS 0.9% 50 ML 50 ML IV SCH (08:33)
[2020-01-07] MEDS: SUCRALFATE 1 GM TAB PO SCH ×2 (08:33→13:00)
[2020-01-07] MEDS: TIZANIDINE HCL 4 MG TAB PO SCH (08:34)
[2020-01-07] MEDS: PANTOPRAZOLE SOD 40 MG TABEC PO SCH (08:34)
[2020-01-07 08:35] VITALS: BP 178/85
[2020-01-07] MEDS: INSULIN GLARGINE 100 UNITS/ML VIAL SQ SCH (09:32)
[2020-01-07] MEDS: AZITHROMYCIN 500MG/NS 250 ML 250 ML IV SCH (09:34)
[2020-01-07 11:24] LABS: BASOPHILS # (AUTO) 0.1 (0.0-0.1); BASOPHILS % 0.9 % (0.0-1.0); EOSINOPHILS # (AUTO) 0.2 (0.0-0.4); EOSINOPHILS % 1.8 % (0.0-6.0); HEMATOCRIT 37.8 % (34.2-44.1); HEMOGLOBIN 12.5 g/dL (12.0-16.0); LYMPHOCYTES # (AUTO) 3.9 (1.0-3.2); LYMPHOCYTES % 32.2 % (18.0-39.1); MEAN CORPUSCULAR HEMOGLOBIN 29.6 pg (28-32); MEAN CORPUSCULAR HGB CONC 33.1 g/dL (31-35); MEAN CORPUSCULAR VOLUME 89.6 fL (81-99); MONOCYTES # (AUTO) 0.8 (0.2-0.8); MONOCYTES % 6.9 % (4.4-11.3); NEUTROPHILS # (AUTO) 6.9 (2.1-6.9); NEUTROPHILS % 57.5 % (38.7-80.0); PLATELET COUNT 297 x10e3/uL (140-360); RED BLOOD COUNT 4.22 x10e6/uL (3.6-5.1); RED CELL DISTRIBUTION WIDTH 13.1 % (11.7-14.4)
[2020-01-07 11:41] LABS: ALANINE AMINOTRANSFERASE 22 IU/L (0-55); ALBUMIN 3.8 g/dL (3.5-5.0); ALBUMIN/GLOBULIN RATIO 1.2 (0.8-2.0); ALKALINE PHOSPHATASE 93 IU/L (40-150); ANION GAP 12.2 mmol/L (8-16); BLOOD UREA NITROGEN 7 mg/dL (7-26); BUN/CREATININE RATIO 9 (6-25); CALCIUM 9.3 mg/dL (8.4-10.2); CARBON DIOXIDE 25 mmol/L (22-29); CHLORIDE 108 mmol/L (98-107); CREATININE, SERUM 0.76 mg/dL (0.57-1.11); EST GLOMERULAR FILTRATION RATE > 60 ML/MIN (60-); GLUCOSE 144 mg/dL (74-118); POTASSIUM 4.2 mmol/L (3.5-5.1); SODIUM 141 mmol/L (136-145)
[2020-01-07 12:00] VITALS: BP 141/54
[2020-01-07] MEDS ORDERED: LEVOFLOXACIN250 MG PO (13:10)
== END 2020-01-07 13:36 | disposition home or self-care (01) | DRG 638 ==
LOC: ER 07:44 → ERHOLD 08:20 → MED/SURG2 11:33 → UNDODISIN 01-06 11:44
PROVIDERS: ADMIT Internal Medicine; ATTEND Internal Medicine
DX: E11.65 Type 2 diabetes mellitus with hyperglycemia (principal); N17.9 Acute kidney failure, unspecified; N39.0 Urinary tract infection, site not specified; I10 Essential (primary) hypertension; Z20.828 Contact with and (suspected) exposure to other viral communicable diseases; E66.9 Obesity, unspecified; Z68.37 Body mass index [BMI] 37.0-37.9, adult; F32.9 Major depressive disorder, single episode, unspecified; F41.9 Anxiety disorder, unspecified; K21.9 Gastro-esophageal reflux disease without esophagitis; J45.909 Unspecified asthma, uncomplicated; I11.9 Hypertensive heart disease without heart failure; E11.40 Type 2 diabetes mellitus with diabetic neuropathy, unspecified; M32.9 Systemic lupus erythematosus, unspecified
CPT/HCPCS: 36415; 36600; 71045; 71260; 80048; 80053; 80061; 81001; 82550; 82553; 82805; 82948; 83735; 83880; 84484; 85025; 85379; 85610; 85730; 86039; 86160; 86225; 87040; 87086; 87400; 93005; 94640; 96360; 99284; J0456; J0692; J0696; J1100; J1200; J1650; J1720; J1815; J1817; J1885; J2405; J7030; J7050; Q9967; U0002

== ENCOUNTER 2020-02-07 16:22 | Emergency (ER) | payer OTHER ==
[~2020-02-07] VITALS: Ht 160 cm; Wt 98.9 kg
[~2020-02-07 16:22] MED LIST changes: +LEVOFLOXACIN250 MG PO
[2020-02-07 18:44] LABS: BASOPHILS # (AUTO) 0.1 (0.0-0.1); BASOPHILS % 0.9 % (0.0-1.0); EOSINOPHILS # (AUTO) 0.1 (0.0-0.4); EOSINOPHILS % 0.9 % (0.0-6.0); HEMATOCRIT 40.2 % (34.2-44.1); HEMOGLOBIN 13.4 g/dL (12.0-16.0); LYMPHOCYTES # (AUTO) 4.7 (1.0-3.2); LYMPHOCYTES % 33.2 % (18.0-39.1); MEAN CORPUSCULAR HEMOGLOBIN 29.9 pg (28-32); MEAN CORPUSCULAR HGB CONC 33.3 g/dL (31-35); MEAN CORPUSCULAR VOLUME 89.7 fL (81-99); MONOCYTES # (AUTO) 0.7 (0.2-0.8); MONOCYTES % 4.7 % (4.4-11.3); NEUTROPHILS # (AUTO) 8.4 (2.1-6.9); NEUTROPHILS % 59.9 % (38.7-80.0); PLATELET COUNT 346 x10e3/uL (140-360); RED BLOOD COUNT 4.48 x10e6/uL (3.6-5.1); RED CELL DISTRIBUTION WIDTH 12.8 % (11.7-14.4)
[2020-02-07 18:54] LABS: INR 0.8; PROTHROMBIN TIME 11.5 seconds (11.9-14.5)
[2020-02-07 19:04] LABS: ALANINE AMINOTRANSFERASE 25 IU/L (0-55); ALBUMIN 4.1 g/dL (3.5-5.0); ALBUMIN/GLOBULIN RATIO 1.2 (0.8-2.0); ALKALINE PHOSPHATASE 94 IU/L (40-150); ANION GAP 13.8 mmol/L (8-16); BLOOD UREA NITROGEN 11 mg/dL (7-26); BUN/CREATININE RATIO 15 (6-25); CALCIUM 9.4 mg/dL (8.4-10.2); CARBON DIOXIDE 24 mmol/L (22-29); CHLORIDE 106 mmol/L (98-107); CREATINE KINASE 78 IU/L (29-168); CREATININE, SERUM 0.74 mg/dL (0.57-1.11); EST GLOMERULAR FILTRATION RATE > 60 ML/MIN (60-); GLUCOSE 200 mg/dL (74-118); POTASSIUM 3.8 mmol/L (3.5-5.1); SODIUM 140 mmol/L (136-145)
[2020-02-07] MEDS ORDERED: METHYLPREDNISOLONE SOD SUCC 125 MG/2ML VIAL IV ONE (19:30)
[2020-02-07 19:45] LABS: LYMPHOCYTES % (MANUAL) 28 % (19-48); MONOCYTES % (MANUAL) 3 % (3.4-9.0); NEUTROPHILS % (MANUAL) 56 % (40-74)
[2020-02-07 19:46] LABS: PLATELET ESTIMATE ADEQUATE; PLATELET MORPHOLOGY COMMENT NORMAL; RBC MORPHOLOGY COMMENT NORMAL
== END 2020-02-07 20:00 | disposition home or self-care (01) ==
LOC: ER 17:26
DX: L25.9 Unspecified contact dermatitis, unspecified cause (principal); R00.2 Palpitations; R51.9 Headache, unspecified; J45.909 Unspecified asthma, uncomplicated; E78.5 Hyperlipidemia, unspecified; E11.22 Type 2 diabetes mellitus with diabetic chronic kidney disease; I12.9 Hypertensive chronic kidney disease with stage 1 through stage 4 chronic kidney disease, or unspecified chronic kidney disease; N18.9 Chronic kidney disease, unspecified; Z91.041 Radiographic dye allergy status; Z91.013 Allergy to seafood; Z86.73 Personal history of transient ischemic attack (TIA), and cerebral infarction without residual deficits; Z79.02 Long term (current) use of antithrombotics/antiplatelets; Z79.4 Long term (current) use of insulin
CPT/HCPCS: 36415; 71045; 80053; 82550; 82553; 83880; 84484; 85025; 85610; 85730; 93005; 99283; J2930

== ENCOUNTER 2020-04-11 18:03 | Emergency (ER) | payer OTHER ==
[~2020-04-11] VITALS: Ht 160 cm; Wt 98.9 kg
[2020-04-11] MEDS ORDERED: ASPIRIN 81 MG CHEW TAB PO ONE (18:30)
[2020-04-11 18:31] LABS: BASOPHILS # (AUTO) 0.1 (0.0-0.1); BASOPHILS % 0.7 % (0.0-1.0); EOSINOPHILS # (AUTO) 0.1 (0.0-0.4); EOSINOPHILS % 0.8 % (0.0-6.0); HEMATOCRIT 40.7 % (34.2-44.1); HEMOGLOBIN 13.6 g/dL (12.0-16.0); LYMPHOCYTES # (AUTO) 2.3 (1.0-3.2); MEAN CORPUSCULAR HEMOGLOBIN 29.4 pg (28-32); MEAN CORPUSCULAR HGB CONC 33.4 g/dL (31-35); MEAN CORPUSCULAR VOLUME 87.9 fL (81-99); MONOCYTES # (AUTO) 0.5 (0.2-0.8); MONOCYTES % 7.1 % (4.4-11.3); NEUTROPHILS # (AUTO) 4.6 (2.1-6.9); PLATELET COUNT 278 x10e3/uL (140-360); RED BLOOD COUNT 4.63 x10e6/uL (3.6-5.1); RED CELL DISTRIBUTION WIDTH 12.3 % (11.7-14.4)
[2020-04-11 18:46] LABS: ALANINE AMINOTRANSFERASE 27 IU/L (0-55); ALKALINE PHOSPHATASE 108 IU/L (40-150); ANION GAP 14.2 mmol/L (8-16); BLOOD UREA NITROGEN 9 mg/dL (7-26); BUN/CREATININE RATIO 10 (6-25); CALCIUM 9.2 mg/dL (8.4-10.2); CARBON DIOXIDE 26 mmol/L (22-29); CHLORIDE 102 mmol/L (98-107); CREATININE, SERUM 0.94 mg/dL (0.57-1.11); EST GLOMERULAR FILTRATION RATE > 60 ML/MIN (60-); POTASSIUM 4.2 mmol/L (3.5-5.1); SODIUM 138 mmol/L (136-145)
[2020-04-11 18:49] LABS: GLUCOSE 481 mg/dL (74-118)
[2020-04-11] MEDS ORDERED: SODIUM CHLORIDE 0.9% 1000ML 1,000 ML IV STA (18:53)
[2020-04-11] MEDS ORDERED: INSULIN REGULAR, HUMAN 100 UNIT/1 ML 3ML VIAL IV NR (19:00)
[2020-04-11 19:13] LABS: CREATINE KINASE 103 IU/L (29-168)
[2020-04-11 21:25] LABS: CLARITY,URINE CLEAR (CLEAR); COLOR,URINE YELLOW (YELLOW)
[2020-04-11 21:26] LABS: KETONES,URINE TRACE (NEGATIVE); LEUKOCYTE ESTERASE ,URINE NEGATIVE (NEGATIVE); NITRITE,URINE NEGATIVE (NEGATIVE); PROTEIN,URINE DIPSTICK NEGATIVE (NEGATIVE); URINE UROBILINOGEN 0.2 mg/dL (0.2 - 1)
== END 2020-04-11 21:33 | disposition home or self-care (01) ==
LOC: ER 18:23
DX: U07.1 COVID-19 (principal); E11.65 Type 2 diabetes mellitus with hyperglycemia; R42 Dizziness and giddiness; R06.02 Shortness of breath; R11.2 Nausea with vomiting, unspecified; I10 Essential (primary) hypertension; E78.5 Hyperlipidemia, unspecified; N18.9 Chronic kidney disease, unspecified; M79.7 Fibromyalgia; Z86.73 Personal history of transient ischemic attack (TIA), and cerebral infarction without residual deficits; Z96.652 Presence of left artificial knee joint
CPT/HCPCS: 36415; 71045; 80053; 81001; 82550; 82553; 82948; 84484; 85025; 99284; J1817; J7030; U0002

== ENCOUNTER → 2020-06-09 | Outpatient (CLI) | payer OTHER | LOC: MRI 10:06 | PROVIDERS: ATTEND Clinical Nurse Specialist Family Health | DX: M47.22 Other spondylosis with radiculopathy, cervical region (principal) | CPT/HCPCS: 72141 ==

== ENCOUNTER 2020-07-01 13:56 | Inpatient (IN) | payer OTHER ==
[~2020-07-01] VITALS: Ht 162.6 cm; Wt 96.6 kg
[2020-07-01 15:39] LABS: BASOPHILS # (AUTO) 0.1 (0.0-0.1); EOSINOPHILS # (AUTO) 0.1 (0.0-0.4); EOSINOPHILS % 0.8 % (0.0-6.0); HEMOGLOBIN 12.9 g/dL (12.0-16.0); LYMPHOCYTES # (AUTO) 3.2 (1.0-3.2); LYMPHOCYTES % 29.7 % (18.0-39.1); MEAN CORPUSCULAR HEMOGLOBIN 30.4 pg (28-32); MEAN CORPUSCULAR HGB CONC 33.1 g/dL (31-35); MONOCYTES # (AUTO) 0.5 (0.2-0.8); NEUTROPHILS # (AUTO) 6.7 (2.1-6.9); NEUTROPHILS % 63.2 % (38.7-80.0); PLATELET COUNT 305 x10e3/uL (140-360); RED BLOOD COUNT 4.24 x10e6/uL (3.6-5.1); RED CELL DISTRIBUTION WIDTH 12.9 % (11.7-14.4)
[2020-07-01 15:53] LABS: INR 0.83
[2020-07-01 15:54] LABS: PARTIAL THROMBOPLASTIN TIME 22.4 seconds (23.8-35.5)
[2020-07-01] MEDS ORDERED: ASPIRIN 81 MG CHEW TAB PO STA (15:55)
[2020-07-01] MEDS ORDERED: ONDANSETRON HCL INJ 2MG/ML 2ML 2 MG/ML VIAL IV STA (15:55)
[2020-07-01 15:56] LABS: CLARITY,URINE HAZY (CLEAR); COLOR,URINE YELLOW (YELLOW); LEUKOCYTE ESTERASE ,URINE NEGATIVE (NEGATIVE); NITRITE,URINE NEGATIVE (NEGATIVE); PROTEIN,URINE DIPSTICK NEGATIVE (NEGATIVE)
[2020-07-01 15:57] LABS: BACTERIA,URINE FEW /HPF; EPITHELIAL CELLS,URINE FEW /LPF; KETONES,URINE NEGATIVE (NEGATIVE); RBC,URINE 0-5 /HPF (0-5); URINE UROBILINOGEN 0.2 mg/dL (0.2 - 1)
[2020-07-01] MEDS ORDERED: MORPHINE SULFATE INJ 4 MG/ML INJ 1ML IV ONE (16:00)
[2020-07-01 16:02] LABS: ALANINE AMINOTRANSFERASE 16 IU/L (0-55); ALBUMIN 3.8 g/dL (3.5-5.0); ALBUMIN/GLOBULIN RATIO 1.2 (0.8-2.0); ALKALINE PHOSPHATASE 82 IU/L (40-150); ANION GAP 16.9 mmol/L (8-16); BLOOD UREA NITROGEN 9 mg/dL (7-26); BUN/CREATININE RATIO 11 (6-25); CALCIUM 9.6 mg/dL (8.4-10.2); CARBON DIOXIDE 22 mmol/L (22-29); CHLORIDE 107 mmol/L (98-107); CREATINE KINASE 57 IU/L (29-168); EST GLOMERULAR FILTRATION RATE > 60 ML/MIN (60-); GLUCOSE 372 mg/dL (74-118); MAGNESIUM 1.7 MG/DL (1.3-2.1); POTASSIUM 3.9 mmol/L (3.5-5.1); SODIUM 142 mmol/L (136-145)
[2020-07-01 16:22] LABS: THYROID STIMULATING HORMONE 0.607 uIU/mL (0.350-4.940)
[2020-07-01] MEDS ORDERED: CYCLOBENZAPRINE5 MG PO (16:23)
[2020-07-01] MEDS ORDERED: ASPIRIN81 MG PO (16:23)
[2020-07-01] MEDS ORDERED: CLONAZEPAM0.5 MG PO (16:23)
[2020-07-01] MEDS ORDERED: CETIRIZINE HCL10 MG PO (16:23)
[2020-07-01] MEDS ORDERED: POTASSIUM CHLO20 ME1 PO (16:23)
[2020-07-01] MEDS ORDERED: MELOXICAM7.5 MG PO (16:23)
[2020-07-01] MEDS ORDERED: ZEBETA10 MG PO (16:23)
[2020-07-01] MEDS ORDERED: DESVENLAFAXINE50 MG (16:23)
[2020-07-01] MEDS ORDERED: ONDANSETRON HCL INJ 2MG/ML 2ML 2 MG/ML VIAL IV PRN (16:45)
[2020-07-01] MEDS ORDERED: DEXTROSE 50% SYRINGE 50 ML IV PRN (16:45)
[2020-07-01] MEDS: FAMOTIDINE 20 MG/2 ML VIAL IV SCH (17:36)
[2020-07-01] MEDS: INSULIN LISPRO 100 UNIT/1 ML 3ML VIAL SQ SCH (20:14)
[2020-07-01 22:07] VITALS: BP 131/76
[2020-07-01 22:17] VITALS: BP 131/76
[2020-07-01 23:30] VITALS: BP 131/76
[2020-07-01] MEDS: AMLODIPINE BESYLATE 5 MG TAB PO SCH (23:30)
[2020-07-01] MEDS ORDERED: ACETAMIN/BUTALBITAL/CAFFEINE TAB PO PRN (23:30)
[2020-07-01] MEDS ORDERED: PANTOPRAZOLE SOD 40 MG TABEC PO SCH (23:30)
[2020-07-01] MEDS: CLONAZEPAM 0.5 MG TAB PO SCH (23:55)
[2020-07-01] MEDS: POTASSIUM CHLORIDE 20 MEQ TAB CR PO SCH (23:55)
[2020-07-01] MEDS: CYCLOBENZAPRINE HCL 10 MG TAB PO SCH (23:55)
[2020-07-02] VITALS (8 sets, daily range): BP systolic 98–140; BP diastolic 54–63
[2020-07-02] MEDS: HYDROCODONE/APAP 10MG-325MG TAB PO PRN ×4 (00:31→23:22)
[2020-07-02] MEDS: GABAPENTIN 300 MG CAP PO SCH ×4 (00:31→21:13)
[2020-07-02] MEDS: PANTOPRAZOLE SOD 40 MG TABEC PO SCH ×2 (00:31→08:26)
[2020-07-02 01:35] LABS: CREATINE KINASE MB 0.6 ng/mL (0-5.0)
[2020-07-02] MEDS: FAMOTIDINE 20 MG/2 ML VIAL IV SCH (06:03)
[2020-07-02] MEDS: SUCRALFATE 1 GM TAB PO SCH (06:31)
[2020-07-02 06:45] LABS: BASOPHILS # (AUTO) 0.1 (0.0-0.1); EOSINOPHILS # (AUTO) 0.1 (0.0-0.4); EOSINOPHILS % 1.4 % (0.0-6.0); HEMOGLOBIN 12.4 g/dL (12.0-16.0); LYMPHOCYTES # (AUTO) 3.8 (1.0-3.2); MEAN CORPUSCULAR HEMOGLOBIN 29.7 pg (28-32); MEAN CORPUSCULAR HGB CONC 31.8 g/dL (31-35); MEAN CORPUSCULAR VOLUME 93.5 fL (81-99); MONOCYTES # (AUTO) 0.5 (0.2-0.8); MONOCYTES % 5.2 % (4.4-11.3); NEUTROPHILS # (AUTO) 5.7 (2.1-6.9); NEUTROPHILS % 55.1 % (38.7-80.0); PLATELET COUNT 199 x10e3/uL (140-360); RED BLOOD COUNT 4.17 x10e6/uL (3.6-5.1); RED CELL DISTRIBUTION WIDTH 12.8 % (11.7-14.4)
[2020-07-02] MEDS: INSULIN LISPRO 100 UNIT/1 ML 3ML VIAL SQ SCH ×4 (07:30→21:14)
[2020-07-02] MEDS ORDERED: PANTOPRAZOLE SOD 40 MG TABEC PO SCH (07:30)
[2020-07-02] MEDS: INSULIN ASPART 70/30 100 UNITS/ML VIAL SC SCH ×3 (07:41→18:16)
[2020-07-02] MEDS: POTASSIUM CHLORIDE 20 MEQ TAB CR PO SCH (08:26)
[2020-07-02] MEDS: CYCLOBENZAPRINE HCL 10 MG TAB PO SCH ×2 (08:27→21:13)
[2020-07-02] MEDS: ASPIRIN 81 MG CHEW TAB PO SCH (08:27)
[2020-07-02] MEDS: MELOXICAM 7.5 MG TAB PO SCH (08:28)
[2020-07-02] MEDS: CLONAZEPAM 0.5 MG TAB PO SCH ×2 (08:28→21:13)
[2020-07-02] MEDS: AMLODIPINE BESYLATE 5 MG TAB PO SCH ×2 (08:29→17:00)
[2020-07-02] MEDS: CLOPIDOGREL BISULFATE 75 MG TAB PO SCH (08:30)
[2020-07-02] MEDS: DESVENLAFAXINE SUCCINATE 50 MG TAB.SR.24H PO SCH (08:30)
[2020-07-02] MEDS ORDERED: INSULIN DEGLUDEC 100 UNIT SC SCH (09:00)
[2020-07-02] MEDS ORDERED: TIZANIDINE HCL 4 MG TAB PO SCH (09:00)
[2020-07-02] MEDS ORDERED: ASPIRIN 81 MG ENTERIC COATED PO SCH (09:00)
[2020-07-02] MEDS: LORATADINE 10 MG TAB PO SCH (09:30)
[2020-07-02 09:56] LABS: ALANINE AMINOTRANSFERASE 14 IU/L (0-55); ALBUMIN 3.6 g/dL (3.5-5.0); ALBUMIN/GLOBULIN RATIO 1.1 (0.8-2.0); ALKALINE PHOSPHATASE 82 IU/L (40-150); ANION GAP 15.8 mmol/L (8-16); BLOOD UREA NITROGEN 11 mg/dL (7-26); BUN/CREATININE RATIO 14 (6-25); CALCIUM 9.3 mg/dL (8.4-10.2); CARBON DIOXIDE 23 mmol/L (22-29); CHLORIDE 106 mmol/L (98-107); CHOLESTEROL 167 MD/DL (0-199); EST GLOMERULAR FILTRATION RATE > 60 ML/MIN (60-); GLUCOSE 318 mg/dL (74-118); HDL CHOLESTEROL 55 MG/DL (40-60); LDL CHOLESTEROL 85 MG/DL (60-130); POTASSIUM 3.8 mmol/L (3.5-5.1); SODIUM 141 mmol/L (136-145); TRIGLYCERIDES 136 MG/DL (0-149)
[2020-07-02] MEDS: BISOPROLOL FUMARATE 10 MG TAB PO SCH (10:01)
[2020-07-02 10:02] LABS: CREATINE KINASE MB 0.5 ng/mL (0-5.0)
[2020-07-02] MEDS ORDERED: METHYLPREDNISOLONE SOD SUCC 1,000 MG/8 ML VIAL IV ONE (19:15)
[2020-07-02] MEDS ORDERED: METHYLPREDNISOLONE SOD SUCC IV ONE ×2 (19:30→21:15)
[2020-07-02] MEDS ORDERED: SODIUM CHLORIDE 0.9% IV ONE ×2 (19:30→21:15)
[2020-07-02] MEDS ORDERED: ATORVASTATIN 20 MG TAB PO SCH (21:00)
[2020-07-02] MEDS: TIZANIDINE HCL 4 MG TAB PO SCH (21:00)
[2020-07-02] MEDS ORDERED: INSULIN DEGLUDEC 100 UNIT SQ SCH (22:06)
[2020-07-03] VITALS: BP 127/62
[2020-07-03] MEDS: SUCRALFATE 1 GM TAB PO SCH (03:37)
[2020-07-03 04:35] VITALS: BP 114/87
[2020-07-03] MEDS: INSULIN LISPRO 100 UNIT/1 ML 3ML VIAL SQ SCH (07:30)
[2020-07-03] MEDS: PANTOPRAZOLE SOD 40 MG TABEC PO SCH ×2 (07:30→09:13)
[2020-07-03] MEDS: GABAPENTIN 300 MG CAP PO SCH ×2 (07:45→09:13)
[2020-07-03] MEDS: TIZANIDINE HCL 4 MG TAB PO SCH ×2 (07:46→09:14)
[2020-07-03] MEDS: INSULIN ASPART 70/30 100 UNITS/ML VIAL SC SCH (08:00)
[2020-07-03 08:04] VITALS: BP 106/67
[2020-07-03 08:30] VITALS: BP 106/67
[2020-07-03] MEDS: CYCLOBENZAPRINE HCL 10 MG TAB PO SCH ×2 (08:31→09:13)
[2020-07-03] MEDS ORDERED: VALACYCLOVIR HCL 500 MG TAB PO SCH (09:00)
[2020-07-03] MEDS: CLOPIDOGREL BISULFATE 75 MG TAB PO SCH (09:13)
[2020-07-03] MEDS: ASPIRIN 81 MG CHEW TAB PO SCH (09:13)
[2020-07-03] MEDS: CLONAZEPAM 0.5 MG TAB PO SCH (09:13)
[2020-07-03] MEDS: MELOXICAM 7.5 MG TAB PO SCH (09:13)
[2020-07-03] MEDS: AMLODIPINE BESYLATE 5 MG TAB PO SCH (09:13)
[2020-07-03] MEDS: DESVENLAFAXINE SUCCINATE 50 MG TAB.SR.24H PO SCH (09:13)
[2020-07-03] MEDS: LORATADINE 10 MG TAB PO SCH (09:13)
[2020-07-03] MEDS: BISOPROLOL FUMARATE 10 MG TAB PO SCH (09:14)
[2020-07-03] MEDS: HYDROCODONE/APAP 10MG-325MG TAB PO PRN (10:10)
[2020-07-03] MEDS ORDERED: CIPRO250 MG PO (11:00)
== END 2020-07-03 11:08 | disposition home or self-care (01) | DRG 74 ==
LOC: ER 14:17 → ERHOLD 16:36 → MED/SURG 21:59
PROVIDERS: ADMIT Internal Medicine; ATTEND Internal Medicine
DX: G51.0 Bell's palsy (principal); N39.0 Urinary tract infection, site not specified; R07.89 Other chest pain; R42 Dizziness and giddiness; R29.810 Facial weakness; I10 Essential (primary) hypertension; E11.9 Type 2 diabetes mellitus without complications; G89.4 Chronic pain syndrome; E66.9 Obesity, unspecified; J45.909 Unspecified asthma, uncomplicated; Z86.73 Personal history of transient ischemic attack (TIA), and cerebral infarction without residual deficits; Z91.013 Allergy to seafood; Z20.822 Contact with and (suspected) exposure to COVID-19; E78.00 Pure hypercholesterolemia, unspecified; F41.9 Anxiety disorder, unspecified; B96.89 Other specified bacterial agents as the cause of diseases classified elsewhere; Z68.36 Body mass index [BMI] 36.0-36.9, adult
CPT/HCPCS: 36415; 70450; 70544; 70547; 70551; 71045; 80053; 80061; 81001; 82550; 82553; 82948; 83735; 83880; 84443; 84484; 85025; 85610; 85730; 87086; 87186; 93005; 93306; 93880; 99284; J1815; J2270; J2405; J2930; U0002

== ENCOUNTER → 2020-08-01 | Outpatient (CLI) | payer OTHER ==
[~2020-08-01] MED LIST changes: +CETIRIZINE HCL10 MG PO; +CIPRO250 MG PO; +CLONAZEPAM0.5 MG PO; +CYCLOBENZAPRINE5 MG PO; +DESVENLAFAXINE50 MG; +ZEBETA10 MG PO
== END ==
LOC: MRI 13:51
PROVIDERS: ATTEND Physical Medicine & Rehabilitation Pain Medicine
DX: M47.27 Other spondylosis with radiculopathy, lumbosacral region (principal)
CPT/HCPCS: 72148

== ENCOUNTER → 2020-10-30 | Day surgery (SDC) | payer OTHER ==
[2020-10-27 13:11] LABS: BASOPHILS # (AUTO) 0.1 (0.0-0.1); BASOPHILS % 0.8 % (0.0-1.0); EOSINOPHILS # (AUTO) 0.1 (0.0-0.4); EOSINOPHILS % 0.8 % (0.0-6.0); HEMOGLOBIN 12.8 g/dL (12.0-16.0); LYMPHOCYTES % 27.7 % (18.0-39.1); MEAN CORPUSCULAR HEMOGLOBIN 29.2 pg (28-32); MEAN CORPUSCULAR HGB CONC 31.2 g/dL (31-35); MEAN CORPUSCULAR VOLUME 93.6 fL (81-99); MONOCYTES # (AUTO) 0.9 (0.2-0.8); MONOCYTES % 5.9 % (4.4-11.3); NEUTROPHILS # (AUTO) 9.3 (2.1-6.9); NEUTROPHILS % 64.2 % (38.7-80.0); PLATELET COUNT 359 x10e3/uL (140-360); RED BLOOD COUNT 4.38 x10e6/uL (3.6-5.1); RED CELL DISTRIBUTION WIDTH 12.7 % (11.7-14.4)
[2020-10-27 16:29] LABS: EOSINOPHILS % (MANUAL) 1 % (0-7); LYMPHOCYTES % (MANUAL) 23 % (19-48); MONOCYTES % (MANUAL) 4 % (3.4-9.0); NEUTROPHILS % (MANUAL) 68 % (40-74)
[~2020-10-30] MED LIST changes: +POVIDONE IODINE 0.05% 0.05 % ML PO ONE; +PROPOFOL IV EMULSION 10 MG/ML 20 ML VIAL ONE
[2020-10-30 16:19] VITALS: BP 132/74
== END | disposition home or self-care (01) ==
LOC: OR 11:16
PROVIDERS: ATTEND Internal Medicine Gastroenterology
DX: K20.90 Esophagitis, unspecified without bleeding (principal); Z86.010 Personal history of colon polyps; K29.70 Gastritis, unspecified, without bleeding; K29.80 Duodenitis without bleeding; K59.03 Drug induced constipation; K57.30 Diverticulosis of large intestine without perforation or abscess without bleeding; K64.8 Other hemorrhoids; G47.33 Obstructive sleep apnea (adult) (pediatric); M48.02 Spinal stenosis, cervical region; J45.909 Unspecified asthma, uncomplicated; E78.5 Hyperlipidemia, unspecified; E11.22 Type 2 diabetes mellitus with diabetic chronic kidney disease; I13.0 Hypertensive heart and chronic kidney disease with heart failure and stage 1 through stage 4 chronic kidney disease, or unspecified chronic kidney disease; N18.9 Chronic kidney disease, unspecified; I50.9 Heart failure, unspecified; R00.1 Bradycardia, unspecified; F41.9 Anxiety disorder, unspecified; Z91.041 Radiographic dye allergy status; Z01.810 Encounter for preprocedural cardiovascular examination; Z01.812 Encounter for preprocedural laboratory examination; Z20.822 Contact with and (suspected) exposure to COVID-19; Z79.02 Long term (current) use of antithrombotics/antiplatelets; Z79.82 Long term (current) use of aspirin; Z79.4 Long term (current) use of insulin; Z68.39 Body mass index [BMI] 39.0-39.9, adult; Z86.73 Personal history of transient ischemic attack (TIA), and cerebral infarction without residual deficits; Z87.19 Personal history of other diseases of the digestive system; Z80.0 Family history of malignant neoplasm of digestive organs
CPT/HCPCS: 36415 ×2; 43239; 43450; 45378; 82948; 85025; 93005; C9113; J2704; U0002

== ENCOUNTER 2020-12-08 12:33 | Emergency (ER) | payer OTHER ==
[~2020-12-08] VITALS: Ht 162.6 cm; Wt 96.6 kg
[~2020-12-08 12:33] MED LIST changes: -POVIDONE IODINE 0.05% 0.05 % ML PO ONE; -PROPOFOL IV EMULSION 10 MG/ML 20 ML VIAL ONE
[2020-12-08] MEDS ORDERED: KETOROLAC TROMETHAMINE 60 MG/2 ML VIAL IM NR (13:15)
[2020-12-08] MEDS ORDERED: HYDROCODONE/APAP 10MG-325MG TAB PO ONE (14:30)
== END 2020-12-08 15:10 | disposition home or self-care (01) ==
LOC: ER 12:46
DX: M54.50 Low back pain, unspecified (principal); G89.29 Other chronic pain; I10 Essential (primary) hypertension; E11.9 Type 2 diabetes mellitus without complications; E78.5 Hyperlipidemia, unspecified; N18.9 Chronic kidney disease, unspecified; J45.909 Unspecified asthma, uncomplicated; M79.7 Fibromyalgia
CPT/HCPCS: 72072; 72110; 99283; J1885